=== PATIENT | female | born 1940 | race Caucasian/White ===

== ENCOUNTER 2019-01-14 15:41 | Outpatient (REF) | payer MEDICARE, OTHER, SELFPAY ==
[2019-01-14 21:33] LABS: FREE T4 0.62 ng/dL (0.76-1.46); TSH 5.77 uIU/mL (0.36-3.74)
[2019-01-16 16:20] LABS: T3,Free 2.5 pg/ml (2.8-5.3)
[2019-01-17 11:02] LABS: Alpha 1 Antitrypsin,Serum 142 mg/dL (90-200)
== END 2019-01-14 16:01 ==
LOC: NCHCN 15:41
PROVIDERS: PCP Nurse Practitioner Family; Visit Provider Nurse Practitioner Family
DX: E03.9 Hypothyroidism, unspecified (principal); F32.9 Major depressive disorder, single episode, unspecified; F41.9 Anxiety disorder, unspecified; J44.9 Chronic obstructive pulmonary disease, unspecified; I10 Essential (primary) hypertension; M54.2 Cervicalgia
CPT/HCPCS: 82103; 84439; 84443; 84481

== ENCOUNTER 2019-02-14 12:00 | Emergency (ER) | payer MEDICARE, OTHER, BC, SELFPAY ==
[2019-02-14] VITALS (33 sets, daily range): BP systolic 114–188; BP diastolic 63–85; PULSE 68–87; RESP 13–32; TEMP 36.1–36.6; O2SAT 95–100
--- NOTE | 2019-02-14 12:19 | ED.GENADUL_ITS ---
Discharge Plan Disposition Patient Disposition: HOME Condition: Stable Discharge Details Chief Complaint: Chest Pain Clinical Impression: Lightheadedness, Chest discomfort Primary Care Provider: Doretha Resendiz ED Provider: Mindy Santoro Home Meds and New Rx's Prescriptions: Continued ramipril 10 mg Capsule 10 mg PO DAILY RF: 0 cetirizine [Zyrtec] 10 mg Tablet 10 mg PO DAILY PRNRF: 0 levothyroxine [Synthroid] 25 mcg Tablet 25 mcg PO DAILY RF: 0 albuterol sulfate [ProAir HFA] 90 mcg/actuation Hfa Aerosol Inhaler 2 puff INHALATION Q6H PRNRF: 0 coenzyme Q10 [CoQ-10] 30 mg Capsule 30 mg PO DAILY RF: 0 diazepam 5 mg Tablet 5 mg PO DAILY PRN (Reason: Anxiety) RF: 0 nabumetone 500 mg Tablet 500 mg PO BID PRNRF: 0 Incruse Ellipta 62.5 mcg/actuation Blister With Device 1 inh INHALATION DAILY RF: 0 Discharge Instructions Instructions: Chest Pain (ED), Lightheadedness (ED) Additional Instructions: Please return immediately to the emergency department if you develop any new or worsening symptoms or if you become otherwise concerned. It is extremely important that you have an outpatient stress test performed as we discussed, and also that you call as soon as possible to make an appointment to be seen by your primary care doctor in follow-up. Referrals: Doretha Resendiz [Primary Care Provider] - Discharge Data Discharge Date/Time-TO BE ENTERED AT DEPARTURE: 02/14/19 16:50 Medical Decision Making Nayely Burt is a 78-year-old woman without reported history of medical problems presenting to the emergency department with episode of lightheadedness while standing, nausea, general malaise also with high blood pressure at home that is unusual for her. No current pain. On exam patient is elderly but acutely nontoxic appearing. Benign cardiopulmonary exam, no lower extremity, no posterior calf tenderness to palpation. Concern for ACS versus pulmonary embolism versus arrhythmia versus metabolic/lyte derangement versus pneumonia versus other. Exam/history is not consistent with acute aortic pathology, sepsis at this time. Plan for EKG, screening labs, IV, telemetry, chest x-ray, 324 mg aspirin. Will monitor and reassess. 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 She has been tearful over this multiple times in the emergency department. She denies any chest pain or lightheadedness on reassessment. Labs nondiagnostic, d-dimer elevated, plan for CT chest. CT chest negative. Patient continues to be asymptomatic on reassessment. Repeat EKG unchanged. Patient is low risk for ACS by heart score. Plan for outpatient stress test which I have ordered, Holter monitor. I have spoken with care management, and they are at bedside with patient discussing options to assist her with caring for her . I had a lengthy discussion with the patient regarding return to emergency department precautions, importance of outpatient follow-up and outpatient stress test, and home care. Patient verbalized understanding of the plan was amenable. All questions were answered. Patient was discharged home with clear plan for outpatient follow-up. Medical Records Medical records reviewed: Yes I reviewed the patient's medical records. Imaging Data Radiologic Study: Attestation: I personally reviewed and interpreted this imaging study as follows: Radiologist's impression: EXAM: CT CHEST PE CTA CLINICAL HISTORY: near syncope, chest pain TECHNIQUE: 70 cc of Omnipaque [address] angiography was performed with multi-slice acquisition and multi-planar and/or 3D reconstructions. COMPARISON: XR CHEST 2V PA LATERAL from 02/14/2019 FINDINGS: The aorta and pulmonary arteries are well opacified with IV contrast. No pulmonary artery filling defects are seen. There is no evidence of aortic dissection. There is no aortic aneurysm. No pleural or pericardial effusions are seen. Lungs are not well evaluated due to respiratory motion and expiratory changes. An area of scarring is seen in the posterior right upper lobe. No focal area of consolidation is seen. There are no underlying emphysematous changes. Degenerative changes are seen in the spine. No compression fracture is seen. IMPRESSION: No evidence of pulmonary emboli or other acute abnormality. EXAM: XR CHEST 2V PA AND LATERAL INDICATION: cough, lightheadedness. COMPARISON: No exams were available for comparison TECHNIQUE: 2D digital imaging was performed. FINDINGS: Heart size is normal. The aorta is tortuous. Lungs are expiratory on the lateral view. No infiltrate, effusion or pulmonary edema is seen on the PA view. IMPRESSION: Somewhat limited exam. No acute abnormality. Lab Data Lab results reviewed: Yes I reviewed the patient's lab results. ECG Data Attestation: I personally reviewed and interpreted this ECG (s) as follows: Interpretation: EKG shows sinus rhythm at 84, normal axis, poor R wave progression, subtle ST depression V3 V4 V5, no priors for comparison, nondiagnostic EKG Repeat EKG shows sinus rhythm at 70, normal axis, no change from prior, nondiagnostic EKG HPI General Mode of arrival: ambulatory . Date/Time Provider Initiated Documentation: 02/14/19 12:17 . Limitations to Documentation: no limitations . Information obtained by: patient, family, RN notes reviewed and old records reviewed . HPI Narrative: Nayely Burt is a 78-year-old woman without reported history of major medical problems presenting to the emergency department with lightheadedness, malaise. Patient reports that she was having her usual morning when she was walking and bent over, and had sudden onset sensation of lightheadedness as if she would pass out. Patient was outside at the time and was able to walk back to her house. Patient reports that since the episode she has felt general malaise. At the time of feeling lightheaded she also noticed some chest tightness in her right chest. Patient denies any current pain. Patient reports that she has had a cough over the past few days. She denies fevers, shortness of breath, vomiting, diarrhea, numbness, vision changes, vertigo. Patient reports that she feels generally weak. Patient reports that she has been eating and drinking as usual for her. 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 No recent travel. Related Data Home Medications Medication Instructions Recorded Confirmed Incruse Ellipta 1 inh INHALATION DAILY 02/14/19 02/14/19 albuterol sulfate [ProAir HFA] 2 puff INHALATION Q6H PRN 02/14/19 02/14/19 cetirizine [Zyrtec] 10 mg PO DAILY PRN 02/14/19 02/14/19 coenzyme Q10 [CoQ-10] 30 mg PO DAILY 02/14/19 diazepam 5 mg PO DAILY PRN 02/14/19 02/14/19 levothyroxine [Synthroid] 25 mcg PO DAILY 02/14/19 02/14/19 nabumetone 500 mg PO BID PRN 02/14/19 02/14/19 ramipril 10 mg PO DAILY 02/14/19 02/14/19 Allergies Allergy/AdvReac Type Severity Reaction Status Date / Time No Known Allergies Allergy Unverified 02/14/19 13:02 General Stated Complaint: Chest Pain VITOR: 2 Review of Systems Narrative: Constitutional: denies fevers Eyes: denies eye pain ENT: denies facial pain, dental pain, sore throat Cardiovascular: denies chest pain, edema, reports chest tightness now resolved, lightheadedness Respiratory: denies SOB, cough GI: denies abdominal pain, vomiting, diarrhea : denies flank pain MSK: denies back pain, neck pain, arthralgias, myalgias Skin: denies rash Neuro: denies headaches, numbness, weakness [facility] Medical History Hypertension (Chronic) Hypothyroid (Chronic) Inguinal hernia (Acute) hx of 3 hernia repairs @ [facility] Surgical History (Updated 02/14/19 @ 13:05 by Mindy Live) H/O detached retina repair (Acute) @ [facility] H/O: hysterectomy (Chronic) History of cholecystectomy (Chronic) Hx of appendectomy (Chronic) Social History Smoking/Tobacco Use Status: Never Drug use: Never Substance use type: does not use Do you feel safe at home: Yes Do you feel safe in your relationship?: Yes Exam Narrative Exam Narrative: Constitutional: elderly, acutely [id number], pleasant, conversing normally HENT: head atraumatic/normocephalic/normal inspection, mucous membranes moist Eyes: conjunctiva normal, sclera normal, pupils 3mm b/l Neck: no stridor, normal ROM, trachea midline Chest: normal inspection Resp: normal work of breathing, LCTAB Cardio: normal rate, normal rhythm, no murmur appreciated GI: abdomen soft, non-tender, non-distended Back: normal inspection, no rash Skin: warm, dry, normal color, no rash Neuro: alert, not altered, grossly non-focal, normal tone Ext: no edema, no posterior calf TTP Psych: normal mood, normal affect, normal behavior Course Vital Signs Vital signs: Vital Signs Temperature 36.6 C 02/14/19 12:08 Pulse 78 02/14/19 12:08 Respiratory Rate 15 02/14/19 12:08 Blood Pressure 166/79 H 02/14/19 12:08 Pulse Oximetry 99 02/14/19 12:08 Temperature 36.6 C 02/14/19 12:08 Temperature Source Skin 02/14/19 12:08 Pulse 78 02/14/19 12:08 Respiratory Rate 15 02/14/19 12:08 Blood Pressure 166/79 H 02/14/19 12:08 Blood Pressure Position Supine 02/14/19 12:08 Pulse Oximetry 99 02/14/19 12:08 Oxygen Delivery Method Room Air 02/14/19 12:08 Oxygen Flow Rate 0 02/14/19 12:08 Pain Level 0 02/14/19 12:08
[2019-02-14 12:39] LABS: Absolute Basophil Count 0.05 k/cumm (0.0-0.2); Absolute Eosinophil Count 0.18 k/cumm (0.0-0.7); Absolute Lymphocyte Count 1.25 k/cumm (1.2-3.4); Absolute Monocyte Count 0.41 k/cumm (0.11-0.7); Absolute Neutrophil Count 3.47 k/cumm (1.2-6.7); Basophils % 0.9; Eosinophils % 3.4; HGB 16.2 g/dL (12.0-15.5); Lymphocytes % 23.3; Mean Corp. HGB Concentration 34.5 g/dL (32.0-36.0); Mean Corpuscular Hemoglobin 28.7 pg (27.0-33.0); Mean Corpuscular Volume 83.2 fL (80-95); Mean Platelet Volume 9.1 fL (8.0-11.0); Monocytes % 7.6; Neutrophils % 64.8; Platelet Count 264 x1000/uL (130-400); RBC 5.65 m/cumm (4.00-5.20); RBC Distribution Width 13.4 % (11.7-14.6); White Blood Cell Count 5.36 k/cumm (4.4-10.8)
[2019-02-14] MEDS: Aspirin 81 MG CHEW 324 MG CH (12:55)
[2019-02-14 12:58] LABS: ALT 20 U/L (14-59); AST 18 U/L (15-37); Albumin 4.2 g/dL (3.4-5.0); Alkaline Phosphatase 75 U/L (46-116); Anion Gap 11.2 mmol/L (3-11); BUN 15 mg/dL (7-18); Bilirubin, Total 0.6 mg/dL (0.2-1.0); CO2 27.8 mmol/L (21.0-32.0); CREATININE 0.87 mg/dL (0.55-1.02); Calcium 9.3 mg/dL (8.5-10.1); Chloride 104 mmol/L (98-107); Glucose 101 mg/dL (74-106); NT-proBNP 37 pg/mL (<300); Potassium 3.7 mmol/L (3.5-5.1); Sodium 143 mmol/L (136-145); Total Protein 7.8 g/dL (6.4-8.2)
[2019-02-14 13:07] LABS: Troponin I < 0.05 ng/Ml (<0.06)
[2019-02-14 13:29] LABS: D-Dimer 1233 ng/mlFEU (<500)
[2019-02-14] MEDS: diazePAM 2 MG TAB PO (13:30)
[2019-02-14 13:34] LABS: Bilirubin Negative (Negative); Blood Negative (Negative); Clarity Clear (Clear); Glucose Negative (Negative); Ketones Negative (Negative); Leukocyte Esterase Trace (Negative); Nitrite Negative (Negative); Urobilinogen 0.2 EU/dL (Up TO 0.2)
--- NOTE | 2019-02-14 13:44 | DI.CT_ITS ---
EXAM: CT CHEST PE CTA CLINICAL HISTORY: near syncope, chest pain TECHNIQUE: 70 cc of Omnipaque [address] angiography was performed with multi-slice acquisiti on and multi-planar and/or 3D reconstructions. COMPARISON: XR CHEST 2V PA LATERAL from 02/14/2019 FINDINGS: The aorta and pulmonary arteries are well opacified with IV contrast. No pulmonary artery filling def ects are seen. There is no evidence of aortic dissection. There is no aortic aneurysm. No pleural or pericardial effusions are seen. Lungs are not well evaluated due to respiratory motion and expiratory changes. An area of scarring is seen in the posterior right upper lobe. No focal area of consolidati on is seen. There are no underlying emphysematous changes. Degenerative changes are seen in the spine . No compression fracture is seen. IMPRESSION: No evidence of pulmonary emboli or other acute abnormality.
[2019-02-14 13:55] LABS: TSH (W/Ref FT4) 6.68 uIU/mL (0.36-3.74)
[2019-02-14 13:59] LABS: Bacteria Rare HPF (Negative); Casts Negative LPF (Negative); Crystals Negative HPF (Negative); Epithelial Cells Rare HPF (Negative); Mucus Negative (Negative); RBC 0-2 HPF (0-2)
[2019-02-14 14:00] LABS: C & S Indicated? Yes
[2019-02-14 14:21] LABS: FREE T4 0.88 ng/dL (0.76-1.46)
[2019-02-14] MEDS: Omnipaque 350 MG/ML 100 ML BTL IJ (14:40)
[2019-02-14] MEDS: Normal Saline 1,000 ML 1000 ML IV (15:01)
[2019-02-14] MEDS: Acetaminophen 325 MG TAB 650 MG PO (15:30)
[2019-02-14 16:36] LABS: Troponin I < 0.05 ng/Ml (<0.06)
== END 2019-02-14 16:50 | disposition home or self-care (01) ==
PROVIDERS: Emergency Provider Student in an Organized Health Care Education/Training Program; PCP Nurse Practitioner Family
DX: R42 Dizziness and giddiness (principal); R07.9 Chest pain, unspecified; I10 Essential (primary) hypertension
CPT/HCPCS: 36415; 71275; 80053; 93005; 96360; 99285; 71046; 81003; 81015; 83735; 83880; 84439; 84443; 84484; 85025; 85379; 87086; 93010; 93225; J3490

== ENCOUNTER 2019-02-17 08:06 | Outpatient (CLI) | payer MEDICARE, OTHER, BC, SELFPAY ==
--- NOTE | 2019-02-21 09:26 | W.HOLTRPT ---
Date of service: 02/21/19 Time of Service: 09:26 Holter Monitor Report Holter Monitor Note: There is a 2-day Holter monitor ordered for the indication of presyncope. ?The patient was in normal sinus rhythm for the majority of the recording time. ?The patient had 2 episodes of supraventricular tachycardia with the longest lasting 4 beats. ?Patient had rare (less than 1%) premature atrial contractions. ?Patient had one episode of ventricular tachycardia which lasted 5 beats. ?The patient had rare (less than 1%) single ventricular ectopic beats. ?The patient had no episodes of atrial fibrillation, no evidence of high degree heart block and no pauses greater than 3 seconds. ?There were no diary events.
== END 2019-02-17 08:26 ==
PROVIDERS: PCP Nurse Practitioner Family; Visit Provider Nurse Practitioner Family
DX: R55 Syncope and collapse (principal); I47.1 Supraventricular tachycardia; I49.1 Atrial premature depolarization; I47.2 Ventricular tachycardia
CPT/HCPCS: 93226

== ENCOUNTER 2019-02-21 00:35 | Outpatient (CLI) | payer MEDICARE, OTHER, BC, SELFPAY ==
--- NOTE | 2019-02-21 10:04 | ETT_ITS ---
APPROVED REPORT Exam: Exercise Treadmill Patient Location: Out-Patient Room/Bed: Stress Nurse: Malia Freeman RN BMI: 28.69 Baseline Rhythm: Sinus Rhythm Indications: Patient presented to the ER on 02/14/19 with a brief (lasted seconds) period of sharp sternal chest pain associated with nausea and a blood pressure (systolic blood pressure over 200 mm/H g per patient) that shot way up. 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 Medical History Medical History: HTN Cardiac Medications: Ramipril Allergies: No known drug allergies Previous Cardiac Procedures: None Pretest Chest Pain Characteristics: None Exercise History: Physically active Lung Sounds: Clear to auscultation Heart Sounds: Regular Stress Test Details Test: Exercise stress testing was performed using a Otilio protocol. Rest Stress HR Max Heart Rate (APMHR): 142 bpm Resting HR Supine: 76 bpm Target HR (85% APMHR): 120 bpm Resting HR Standin bpm Max HR Achieved: 128 bpm % of APMHR: 90 HR response to stress: Normal HR response to stress BP Resting BP Supine: 138/80 mmHg Resting BP Standin/74 mmHg Max BP: 164/72 mmHg BP response to stress: Normal blood pressure response to stress. ECG Resting ECG: Sinus Rhythm ST Change: none Stress ECG: Sinus Tachycardia ST Change: none Recovery ECG: Sinus Rhythm Recovery ST Change: none Clinical Exercise duration: 5 min13 sec Highest Stage Achieved: Stage 2: 2.5 mph at 12% grade. Exercise capacity: 7.05 METs Functional Capacity: Average Capacity Stress ECG Conclusion 1. Patient exercised for 5 minutes (7 METS) which is average for her age range. 2. Patient did not develop any symptoms of angina associated with exercise. 3. The patient achieved a heart rate of 90% of predicted value represents a maximal exertion stress t est. 4. There is no ECG evidence of ischemia on stress. 5. The Flood Score (5) estimates an annual cardiovascular mortality of 1% and a five year survival of 94%. Using the Flood Score there is a low probability of any angiographic coronary disease. Protocol Used: Otilio Protocol Stress Test Summary STAGE Time (mins) Speed (mph) Grade (%) HR BP SYMPTOMS METS Supine 76 138/80 Standing 77 136/74 1 3 1.7 10 109 142/70 4.6 2 6 2.5 12 128 146/72 7 3 9 3.4 14 10.2 4 12 4.2 16 12.9 5 15 5.0 18 17.2 1 min recovery 112 164/72 3 min recovery 88 148/76 6 min recovery 81 132/80
== END 2019-02-21 00:55 ==
PROVIDERS: PCP Nurse Practitioner Family; Visit Provider Student in an Organized Health Care Education/Training Program
DX: R07.9 Chest pain, unspecified (principal); R11.0 Nausea; I10 Essential (primary) hypertension; I47.1 Supraventricular tachycardia; I49.1 Atrial premature depolarization; I47.2 Ventricular tachycardia
CPT/HCPCS: 93016; 93018; 93227; 93017

== ENCOUNTER 2019-03-29 13:08 | Outpatient (REF) | payer MEDICARE, OTHER, BC, SELFPAY ==
[2019-03-29 21:59] LABS: TSH (W/Ref FT4) 5.83 uIU/mL (0.36-3.74)
[2019-03-29 22:17] LABS: FREE T4 0.79 ng/dL (0.76-1.46)
== END 2019-03-29 13:28 ==
LOC: NCHCN 13:08
PROVIDERS: PCP Nurse Practitioner Family; Visit Provider Nurse Practitioner Family
DX: E03.9 Hypothyroidism, unspecified (principal)
CPT/HCPCS: 84439; 84443

== ENCOUNTER 2019-05-12 12:05 | Outpatient (REF) | payer MEDICARE, OTHER, BC, SELFPAY ==
[2019-05-12 21:34] LABS: TSH (W/Ref FT4) 4.11 uIU/mL (0.36-3.74)
[2019-05-12 22:11] LABS: FREE T4 0.96 ng/dL (0.76-1.46)
== END 2019-05-12 12:25 ==
LOC: NCHCN 12:05
PROVIDERS: PCP Nurse Practitioner Family; Visit Provider Nurse Practitioner Family
DX: E03.9 Hypothyroidism, unspecified (principal)
CPT/HCPCS: 84439; 84443

== ENCOUNTER 2019-05-26 13:54 | Outpatient (REF) | payer MEDICARE, OTHER, BC, SELFPAY ==
[2019-05-26 21:20] LABS: Anion Gap 6.8 mmol/L (3-11); BUN 14 mg/dL (7-18); CO2 31.2 mmol/L (21.0-32.0); CREATININE 0.88 mg/dL (0.55-1.02); Calcium 8.8 mg/dL (8.5-10.1); Chloride 104 mmol/L (98-107); Glucose 84 mg/dL (74-106); Potassium 4.5 mmol/L (3.5-5.1); Sodium 142 mmol/L (136-145); TSH (W/Ref FT4) 4.51 uIU/mL (0.36-3.74)
[2019-05-26 21:37] LABS: FREE T4 1.05 ng/dL (0.76-1.46)
== END 2019-05-26 14:14 ==
LOC: NCHCN 13:54
PROVIDERS: PCP Nurse Practitioner Family; Visit Provider Nurse Practitioner Family
DX: E03.9 Hypothyroidism, unspecified (principal); F32.9 Major depressive disorder, single episode, unspecified; F41.9 Anxiety disorder, unspecified; E78.5 Hyperlipidemia, unspecified; I10 Essential (primary) hypertension; M54.2 Cervicalgia; J44.9 Chronic obstructive pulmonary disease, unspecified; J30.9 Allergic rhinitis, unspecified
CPT/HCPCS: 80048; 84439; 84443

== ENCOUNTER 2019-08-30 12:34 | Outpatient (REF) | payer MEDICARE, OTHER, BC, SELFPAY ==
[2019-08-30 21:26] LABS: Abs Immature Grans 0.01 k/cumm (0.0-0.09); Absolute Basophil Count 0.05 k/cumm (0.0-0.2); Absolute Eosinophil Count 0.16 k/cumm (0.0-0.7); Absolute Lymphocyte Count 1.39 k/cumm (1.2-3.4); Absolute Monocyte Count 0.44 k/cumm (0.11-0.7); Absolute Neutrophil Count 3.65 k/cumm (1.2-6.7); Basophils % 0.9; Eosinophils % 2.8; HCT 46.8 % (36.0-46.0); HGB 15.7 g/dL (12.0-15.5); Immature Grans % 0.2 %; Lymphocytes % 24.4; Mean Corp. HGB Concentration 33.5 g/dL (32.0-36.0); Mean Corpuscular Hemoglobin 28.7 pg (27.0-33.0); Mean Corpuscular Volume 85.6 fL (80-95); Mean Platelet Volume 10.5 fL (8.0-11.0); Monocytes % 7.7; Platelet Count 236 x1000/uL (130-400); RBC 5.47 m/cumm (4.00-5.20); RBC Distribution Width 13.5 % (11.7-14.6)
[2019-08-30 22:40] LABS: ALT 24 U/L (14-59); AST 21 U/L (15-37); Albumin 4.2 g/dL (3.4-5.0); Alkaline Phosphatase 79 U/L (46-116); Anion Gap 10.7 mmol/L (3-11); BUN 15 mg/dL (7-18); Bilirubin, Total 0.5 mg/dL (0.2-1.0); CO2 28.3 mmol/L (21.0-32.0); CREATININE 0.76 mg/dL (0.55-1.02); Chloride 105 mmol/L (98-107); FREE T4 0.97 ng/dL (0.76-1.46); Glucose 82 mg/dL (74-106); Potassium 4.7 mmol/L (3.5-5.1); Sodium 144 mmol/L (136-145); TSH 7.56 uIU/mL (0.36-3.74); Total Protein 7.4 g/dL (6.4-8.2)
[2019-08-31 17:40] LABS: T3,Free 3.1 pg/mL (2.8-5.3)
== END 2019-08-30 12:54 ==
LOC: NCHCN 12:34
PROVIDERS: PCP Nurse Practitioner Family; Visit Provider Nurse Practitioner Family
DX: E03.9 Hypothyroidism, unspecified (principal); I10 Essential (primary) hypertension; E78.5 Hyperlipidemia, unspecified; R10.9 Unspecified abdominal pain; F32.9 Major depressive disorder, single episode, unspecified; J44.9 Chronic obstructive pulmonary disease, unspecified
CPT/HCPCS: 80053; 84439; 84443; 84481; 85025

== ENCOUNTER 2019-12-07 12:09 | Outpatient (REF) | payer MEDICARE, OTHER, BC, SELFPAY ==
[2019-12-07 21:53] LABS: Abs Immature Grans 0.01 10^3/uL (0.0-0.06); Absolute Basophil Count 0.07 10^3/uL (0.0-0.2); Absolute Eosinophil Count 0.15 10^3/uL (0.0-0.7); Absolute Lymphocyte Count 1.36 10^3/uL (1.2-3.4); Absolute Monocyte Count 0.39 10^3/uL (0.1-0.8); Absolute Neutrophil Count 3.71 10^3/uL (1.2-6.7); Basophils % 1.2; Eosinophils % 2.6; HCT 49.2 % (36.0-46.0); HGB 16.1 g/dL (11.2-15.7); Immature Grans % 0.2; Lymphocytes % 23.9; MCH 28.6 pg (27.0-33.0); MCHC 32.7 % (32.0-36.0); MCV 87.4 fL (80-95); Monocytes % 6.9; Neutrophils % 65.2; Nucleated RBC 0 %; RBC 5.63 10^6/uL (3.93-5.22); RDW-SD 41.1 fL; WBC 5.69 10^3/uL (4.4-10.8)
[2019-12-07 22:19] LABS: ALT 25 U/L (14-59); AST 22 U/L (15-37); Albumin 4.2 g/dL (3.4-5.0); Alkaline Phosphatase 85 U/L (46-116); Anion Gap 7.8 mmol/L (3-11); BUN 13 mg/dL (7-18); Bilirubin, Total 0.4 mg/dL (0.2-1.0); CO2 29.2 mmol/L (21.0-32.0); CREATININE 0.89 mg/dL (0.55-1.02); Calcium 9.3 mg/dL (8.5-10.1); Chloride 104 mmol/L (98-107); Glucose 88 mg/dL (74-106); Lipase 93 U/L (73-393); Sodium 141 mmol/L (136-145); TSH (W/Ref FT4) 2.89 uIU/mL (0.36-3.74); Total Protein 7.4 g/dL (6.4-8.2)
[2019-12-07 22:26] LABS: Diff Comment Agrees w/ Instrument; RBC Morphology Normal
[2019-12-08 17:53] LABS: CRP, High Sensitivity 2.69 mg/L (See Note)
== END 2019-12-07 12:29 ==
LOC: NCHCN 12:09
PROVIDERS: PCP Nurse Practitioner Family
DX: E03.9 Hypothyroidism, unspecified (principal); R10.9 Unspecified abdominal pain; I10 Essential (primary) hypertension
CPT/HCPCS: 80053; 83690; 86141; 84443; 85025

== ENCOUNTER 2019-12-08 01:15 | Outpatient (CLI) | payer MEDICARE, OTHER, BC, SELFPAY ==
--- NOTE | 2019-12-08 | DI.CT_ITS ---
EXAM: CT ABDOMEN PELVIS W CLINICAL HISTORY: ABD PAIN,R10.9,? PARTIAL SBO,DIVERTICULITIS TECHNIQUE: COMPARISON: CT CT CHEST PE CTA from 02/14/2019 FINDINGS: CT examination of the abdomen and pelvis was performed bolus infusion of 100 cc of Omnipaque 350 and ingestion of dilute barium. Images obtained through the lung bases are unremarkable except for areas of apparent atelectasis and/or scarring. Liver and spleen are normal in appearance as is the pancreas. Note is made of a prior cholecystectom y. No biliary dilatation seen. Adrenals and kidneys are unremarkable, no renal mass, hydronephrosis, or nephrolithiasis. Abdominal aorta is of normal diameter and major visceral branches appear intact. No abdominal or pel nichole adenopathy seen. There is a small ventral hernia at and above the level of the umbilicus which is widely patent and wh ich contains normal-appearing small bowel loops, no evidence obstruction or inflammation. No other s ignificant abdominal wall hernia seen. Small bowel is unremarkable in appearance. Appendix is not specifically visualized but there is no e vidence of appendicitis or diverticulitis. There is a focal area of irregularity of the wall of the descending colon with question associated mu cosal irregularity, colonoscopy requested to exclude neoplastic disease. An additional small focal a sana of wall thickening and luminal narrowing is also noted in the distal descending colon, again colo noscopist evaluation recommended. There are anastomotic sutures at the rectum and in the sigmoid with associated post anastomotic sigmo id deformity. No evidence of obstruction. No evidence of acute inflammatory process. IMPRESSION: Uncomplicated widely patent ventral hernia containing normal appearing bowel loops. Prior cholecystectomy, prior colon surgery, with sigmoid wall deformity presumably postsurgical.. Two focal areas of abnormal wall thickening and associated question mucosal abnormality of the descen ding colon are noted, colonoscopic correlation requested to exclude neoplasm. RADIATION DOSE DELIVERED: 686.85mGy.cm Total DLP
[2019-12-08] MEDS: Omnipaque 350 MG/ML 50 ML BTL PO ×2 (07:00→07:54)
[2019-12-08] MEDS: Omnipaque 350 MG/ML 100 ML BTL IJ (07:56)
== END 2019-12-08 01:35 ==
PROVIDERS: PCP Nurse Practitioner Family
DX: K43.9 Ventral hernia without obstruction or gangrene; K63.89 Other specified diseases of intestine; R10.9 Unspecified abdominal pain
CPT/HCPCS: 74177; J3490; Q9967

== ENCOUNTER → 2019-12-14 10:48 | Outpatient (BNVA) | payer MEDICARE, OTHER, BC, SELFPAY | PROVIDERS: PCP Nurse Practitioner Family; Referring Provider Nurse Practitioner Family; Visit Provider Surgery | DX: R10.13 Epigastric pain (principal); K43.9 Ventral hernia without obstruction or gangrene; Z98.890 Other specified postprocedural states; Z90.49 Acquired absence of other specified parts of digestive tract; R93.5 Abnormal findings on diagnostic imaging of other abdominal regions, including retroperitoneum; J44.9 Chronic obstructive pulmonary disease, unspecified; I10 Essential (primary) hypertension | CPT/HCPCS: 99203; 99214 ==

== ENCOUNTER 2019-12-16 07:23 | Outpatient (CLI) | payer MEDICARE, OTHER, BC, SELFPAY ==
[2019-12-17 23:51] LABS: COVID-19 RT-PCR Result NEGATIVE (Negative)
== END 2019-12-16 07:43 ==
PROVIDERS: PCP Nurse Practitioner Family; Visit Provider Surgery
DX: Z11.59 Encounter for screening for other viral diseases (principal); Z01.818 Encounter for other preprocedural examination
CPT/HCPCS: U0003

== ENCOUNTER 2019-12-19 07:45 | Day surgery (SDC) | payer MEDICARE, OTHER, BC, SELFPAY ==
[2019-12-19 08:00] VITALS: BP 110/67; PULSE 90; RESP 18; TEMP 36.6; O2SAT 95
[2019-12-19] MEDS: Lactated Ringers 1,000 ML 80 ML IV (08:28)
--- NOTE | 2019-12-19 10:22 | W.COLOREPORT ---
Date of service: 12/19/19 Time of Service: 10:22 Colonoscopy Report Date of procedure: 12/19/19 Pre-op diagnosis general: hx of diveritc/abnl CT Post-op diagnosis procedure note: same Surgeon: Evonne Ruano Anesthesia proc note operative: GETA Estimated blood loss (mL): 0 Pathology: none sent Complications: None Disposition: same day Prep: Miralax/Dulcolax Retraction Time: 10 mins Procedure Description: After informed consent was obtained the patient was taken to the procedure room and placed in a left decubitous position. Monitors were applied and a time out was done. The patients name, date of , procedure, allergies to medications and metal in their body was reviewed. The patient was then sedated. Once sedated and comfortable a rectal exam was done. External exam shows hemorhoidal tags. Internal exam revealed a normal sphincter tone and no palpable masses. The scope was then introduced and retrofelexed. Grade I internal hemorrhoids were identified. The scope was then advanced to the cecum w/out difficulty. The TI and appendiceal orifice were identified. The prep was good. The scope was then slowly retracted over 10 minutes back into the rectum. Polyps were removed-none. The anastomosis is widely patent. There are a few small diverticula still present in the left colon. THere are no signs of malignancy or polyps in the right colon. The scope was removed and the patient was woken up and taken back to Same day surgery in stable condition. The patient tolerated the procedure well and there were no immediate complications. Follow up: The patient does not require any further CE's, unless they develop changes in bowel habits or other new gastrointestinal complaints.
--- NOTE | 2019-12-19 10:25 | W.PM.DSUDISC ---
Discharge Plan Disposition Patient Disposition: HOME Condition: Good Discharge Details Reason For Visit: colon scope Attending Provider: Evonne Ruano Primary Care Provider: Doretha Resendiz Home Meds and New Rx's Prescriptions: Discontinued polyethylene glycol 3350 17 gram/dose powder 238 g PO ONCE Qty: 238 RF: 0 bisacodyl [Dulcolax (bisacodyl)] 5 mg tablet,delayed release (DR/EC) 5 mg PO ONCE Qty: 4 RF: 0 No Action acetaminophen [Tylenol Arthritis Pain] 650 mg tablet extended release 650 mg PO Q12H RF: 0 levothyroxine 75 mcg tablet 75 mcg PO DAILY RF: 0 ramipril 5 mg capsule 5 mg PO DAILY RF: 0 cetirizine [Zyrtec] 10 mg Tablet 10 mg PO DAILY PRNRF: 0 albuterol sulfate [ProAir HFA] 90 mcg/actuation Hfa Aerosol Inhaler 2 puff INHALATION Q6H PRNRF: 0 coenzyme Q10 [CoQ-10] 30 mg Capsule 30 mg PO DAILY RF: 0 diazepam 5 mg Tablet 5 mg PO DAILY PRN (Reason: Anxiety) RF: 0 nabumetone 500 mg Tablet 500 mg PO BID PRNRF: 0 Incruse Ellipta 62.5 mcg/actuation Blister With Device 1 inh INHALATION DAILY RF: 0 Discharge Instructions Additional Instructions: Findings: few residual diverticula. Otherwise nl colon Follow up: 2-4 wks to d/w hernia repair Please call if you develop: fevers >101.5 Nausea or Vomiting Abdominal pain that is not transient DAY SURGERY UNIT POST COLONOSCOPY INSTRUCTIONS 1. Because there will be medication in your system for the next 24 hours, you may feel a little sleepy. Your coordination will be affected. Therefore: a. Do not drive or operate dangerous equipment for 24 hours. b. Do not drink alcohol beverages for 24 hours (not even beer). c. Plan to go home and rest for the day. 2. Generally there are no restrictions on your activity after a day or so has gone by, but you may feel a bit fatigued for a few days. 3 After you arrive home you may have a light meal and return to a normal diet as you can tolerate it without feeling sick to your stomach. 4. After surgery, you may feel pain or discomfort. This should be only transient, but if it persists please contact your doctor. 5. If there are any questions regarding the findings of your procedure, please feel free to contact your doctor. 6. If you are unable to contact your doctor with a problem, contact the hospital at [phone]. 7. Continue all your regular medications unless directed otherwise. I understand the above instructions and have no questions. Signature of Patient or Responsible Adult Escort Date/Time Name of Responsible Adult Escort Signature of Nurse Date/Time Activity:: no lifting over 20#'s or strenuous activity x 24 hrs Diet:: small light meals x 24 hrs Discharge Orders Discharge Orders: Discharge Order (Routine); Ordered 12/19/19 Ordered By: Evonne Ruano DS: Diagnosis Discharge Diagnosis (1) Ventral hernia: Status: Acute (2) Diverticular disease of large intestine: Status: Acute
== END 2019-12-19 11:10 | disposition home or self-care (01) ==
PROVIDERS: PCP Nurse Practitioner Family; Visit Provider Surgery
PROC: 0DJD8ZZ Inspection of Lower Intestinal Tract, Via Natural or Artificial Opening Endoscopic (ICD-10-PCS; CPT 45378; principal; 2019-12-19 09:00)
DX: R93.3 Abnormal findings on diagnostic imaging of other parts of digestive tract (principal); Z98.0 Intestinal bypass and anastomosis status; Z86.010 Personal history of colon polyps
CPT/HCPCS: 45378

== ENCOUNTER → 2020-01-04 09:44 | Outpatient (BNVA) | payer MEDICARE, OTHER, BC, SELFPAY | PROVIDERS: PCP Nurse Practitioner Family; Referring Provider Nurse Practitioner Family; Visit Provider Surgery | DX: K57.30 Diverticulosis of large intestine without perforation or abscess without bleeding (principal); Z98.890 Other specified postprocedural states; Z90.49 Acquired absence of other specified parts of digestive tract; K43.9 Ventral hernia without obstruction or gangrene; E03.9 Hypothyroidism, unspecified; I10 Essential (primary) hypertension; E78.5 Hyperlipidemia, unspecified; J44.9 Chronic obstructive pulmonary disease, unspecified | CPT/HCPCS: 99214 ==

== ENCOUNTER 2020-01-26 01:02 | Outpatient (CLI) | payer MEDICARE, OTHER, BC, SELFPAY ==
[2020-01-28 13:24] LABS: SARS-CoV-2 RNA Not Detected (NotDetected); SARS-CoV-2 RNA Source Nasal/Nares
== END 2020-01-26 01:22 ==
PROVIDERS: PCP Nurse Practitioner Family; Visit Provider Surgery
DX: Z01.818 Encounter for other preprocedural examination (principal); K43.9 Ventral hernia without obstruction or gangrene
CPT/HCPCS: 36415; 86850; 86900; 86901; U0003

== ENCOUNTER → 2020-01-27 10:12 | Outpatient (BNVA) | payer MEDICARE, OTHER, BC, SELFPAY | PROVIDERS: PCP Nurse Practitioner Family; Referring Provider Nurse Practitioner Family; Visit Provider Surgery | DX: K43.9 Ventral hernia without obstruction or gangrene (principal); Z01.818 Encounter for other preprocedural examination; J44.9 Chronic obstructive pulmonary disease, unspecified; I10 Essential (primary) hypertension | CPT/HCPCS: 99212 ==

== ENCOUNTER 2020-01-30 06:00 | Inpatient (IN) | payer MEDICARE, OTHER, BC, SELFPAY ==
[2020-01-30] VITALS (105 sets, daily range): BP systolic 90–126; BP diastolic 50–84; PULSE 74–99; RESP 11–34; TEMP 36–36.6; O2SAT 88–98
[2020-01-30] MEDS: Acetaminophen 500 MG TAB 1000 MG PO ×2 (06:56→22:37)
[2020-01-30] MEDS: Lactated Ringers 1,000 ML 80 ML IV ×3 (07:10→20:20)
[2020-01-30] MEDS: FentaNYL/ROPIvacaine 2 mcg/ml and 0.1% 200 ML CADD Cassette EP (08:20)
[2020-01-30] MEDS: ceFAZolin 2 GM/50 ML BAG IVPB (08:21)
[2020-01-30] MEDS: Bupivacaine 0.25% Pres-Free 30 ML VIAL (09:22)
--- NOTE | 2020-01-30 13:55 | W.PM.OP ---
Date of service: 01/30/20 Time of Service: 13:55 Operative Note Operative Note DATE OF PROCEDURE: 01/30/20 PRE-OP DIAGNOSIS: recurrent incional hernia PROCEDURE: retro-rectus hernia repair w/ permacol biologic mesh transversus abdominus muscle release SURGEON: Evonne Ruano [employer] SUPERVISOR: Rabia Krueger ANESTHESIA: GETA and epidural ESTIMATED BLOOD LOSS: 50 PATHOLOGY: none sent COMPLICATIONS: None Patient was transported to: PACU Patient's condition: stable Procedure Description: Mary Lou Ruffin 1940 is here today for recurrent ventral hernia repair. She has had the hernia repair in 2013. She had a mesh product placed that ultimately had to be removed, and subsequently she developed another hernia. She has had a preop CT scan which was reviewed and the proper size was ordered. She had a colonoscopy preop which was normal. She is seen in preop and marked today. We did review the procedure what she could expect during the procedure, hospital course and postop recovery time and restrictions. We discussed risks of surgery including not limited to: Bleeding, infection, pneumonia, blood clots, complications from anesthesia, reaction to mesh requiring removal, chronic pain,, chronic numbness, nonhealing, seromas and hematomas, complications of anesthesia, including ME and stroke. And as always recurrence of hernia. Epidural anesthesia is administered per the department of anesthesia. Patient is then brought to the operating room suite and placed in the supine position. General anesthesia is administered per anesthesia. NG tube and Gracia catheter placed. She did receive preoperative antibiotics. Timeout is performed. The abdomen is prepped and draped in the usual sterile fashion using a ChloraPrep scrub solution. 20 cc of .25% Marcaine is used for local anesthetization. The old scar is removed using a #10 blade. Vertical midline incision is created 3 inches above 3 inches below the umbilicus. Electrocautery is used to dissect down through the fascia and subcutaneous tissue. She has a significant amount of scarring in the subcutaneous tissue. The hernia sac is then encountered and opened. The hernia sac is excised. Skin flaps are raised over the fascia, using electrocautery. She had significant tissue reaction and has pretty severe adhesions from the subcutaneous tissue to the fascia. The hernia that is excised. Her omentum is adhered to the hernia sac and to the anterior abdominal wall and this is excised using LigaSure. Considering all the surgeries that she has had, her adhesions in the abdomen are not that severe. The bowel is removed from the anterior abdominal wall. About 30 minutes is spent lysing adhesions to the anterior abdominal wall and from the hernia sac. I did not attempt to lyse all the adhesions and run her small bowel. She is never had a small bowel obstruction. Next the posterior fascial sheath flaps are created. This is where we run into difficulty as she has had pretty significant tissue reaction from having the previous mesh in place; the rectus muscle and sheath components are intimately adhered/scarred together. This is especially true in the left lower quadrant where she had a previous colostomy. Below the arcuate line there is basically no fascia left. 2 hours is spent doing the dissection, just to define and identify and develop and separate the posterior sheath and rectus muscles. I am able to do this still have excellent coverage from the mesh except, for about a 3 x 2 cm area in the left lower quadrant as previously noted. Most of the posterior sheath is development is done using a combination of electro cautery and blunt dissection. There is an area on the left side near the umbilicus that this sheath is torn and this is repaired using a 2-0 PDS. The relaxing incisions are then created bilaterally from the ribs to the ASIS by opening up the transverses abdominis using electrocautery. This gives us generous amounts of posterior sheath and amenible to close the posterior sheath in the midline without any tension. This is closed in a running fashion with #1 PDS. There was no bleeding or signs of any enteric leakage from the abdominal cavity. No drains are placed in abdominal cavity. Sponge and needle count is correct prior to closing the peritoneum and posterior sheath. The posterior sheath and rectus muscle are irrigated. Attention is then turned to the mesh. We are using a 20 x 15 cm Permacol biologic mesh. This is tacked down at the 4 cardinal points using a 2-0 PDS. In the area where we have loss of domain, in the left lower quadrant, the mesh is tacked down to: Osiel's ligament and to the inguinal ligament and then up to the anterior sheath as well. There is no signs of any bleeding we have excellent coverage. We did not have to cut the mesh. The wound is irrigated. The anterior sheath is then closed over the mesh with a 2-0 PDS in a running fashion. The fat pads are copiously irrigated. There is no bleeding. x2 19 mm JOSHUA drains are brought out through separate stab incisions and b/l in the subcu. The subcu was closed with 3-0 Vicryl in a running pattern. The fat pad is irrigated. And the incision is closed with amparo. Sterile dressings are applied. Patient tolerated procedure without complication and transferred recovery room in stable condition. Her family was apprised of the findings.
--- NOTE | 2020-01-30 15:20 | W.PM.PROGNOT ---
Date of Service Date of service: 01/30/20 Time of Service: 15:20 Assessment and Plan Assessment and plan (1) History of open sigmoidectomy: Status: Acute (2) Ventral hernia: Status: Acute Assessment and plan: The patient is doing well post-op. There pain is well controlled. They are having no nausea or vomiting. The pt is not having any chest pain or SOB, productive cough; no calf pain or swelling. The pt is making good urine. The pt pain is adequately controlled. The case was discussed with nursing and pateints progress reviewed. All of the pt's home medications were addressed and adjusted accordingly for their oral intact status. HEENT: no janudice. no eye pain/drainage/redness/swelling. mild sore throat cardio- NSR no chest pain, BP stable. pulm: no sob or productive cough. no hemoptysis insicion- clean/dry. dressing intact no excessive bleeding or drainage I discussed with the patient [id number], [place] [phone], about the findings in surgery and the pt's progress. We reviewed expectations for progress in the hospital; what the pt could expect for recovery time and length of stay. We discussed the importance of walking and pulmonary toilet to avoid blood clots and pneumonia. Continue current plans for pulmonary toilet, GI and DVT prophalxis. We shall continue the current plan for pain mangament as it is at an appropraite level and working well for the pt. Appriopriate measures will be taken for constipation prevention as well, and this was also reviewed witht the pt. wound care plan was reviewed with nursing as well. see orders (3) Hypothyroid: Status: Chronic (4) Hypertension: Status: Chronic (5) Hyperlipidemia: Status: Acute (6) COPD (chronic obstructive pulmonary disease): Status: Chronic Objective Last Vital Signs Temp 36.5 C 01/30/20 15:00 Pulse 74 01/30/20 15:00 Resp 24 01/30/20 15:00 BP 109/84 01/30/20 15:00 Pulse Ox 97 01/30/20 15:00
[2020-01-30] MEDS: Heparin 5,000 UNITS/ML VIAL 5000 UNITS SC (20:19)
[2020-01-30] MEDS: Zolpidem 5 MG TAB PO (22:37)
[2020-01-30] MEDS: Docusate Sodium 100 MG CAP PO (22:38)
[2020-01-31] VITALS (26 sets, daily range): BP systolic 94–128; BP diastolic 53–71; PULSE 75–105; RESP 16–20; TEMP 36–38.3; O2SAT 89–97
--- NOTE | 2020-01-31 00:55 | NUR.NOTE ---
at approx 0013 01/31/2020 pt transferred from ICU room 222 to MS room 207. pt admitted to ICU as a MS overflow. pt transfered without incident via rolling bed. VSS. pts belongings transferred with pt. pt oriented to room, call fortune, TV, visitor and smoking policy. all pts questions answered to the best of my ability. CTM.
[2020-01-31] MEDS: FentaNYL/ROPIvacaine 2 mcg/ml and 0.1% 200 ML CADD Cassette EP (04:42)
[2020-01-31] MEDS: Levothyroxine 75 MCG TAB PO (06:40)
[2020-01-31] MEDS: Heparin 5,000 UNITS/ML VIAL 5000 UNITS SC ×2 (06:40→18:00)
[2020-01-31] MEDS: Acetaminophen 500 MG TAB 1000 MG PO ×3 (06:41→21:55)
[2020-01-31 07:25] LABS: Abs Immature Grans 0.04 10^3/uL (0.0-0.06); Absolute Basophil Count 0.02 10^3/uL (0.0-0.2); Absolute Lymphocyte Count 1.19 10^3/uL (1.2-3.4); Absolute Monocyte Count 0.97 10^3/uL (0.1-0.8); Absolute Neutrophil Count 7.53 10^3/uL (1.2-6.7); Basophils % 0.2; HCT 34.3 % (36.0-46.0); HGB 11.7 g/dL (11.2-15.7); Immature Grans % 0.4; Lymphocytes % 12.2; MCH 29.4 pg (27.0-33.0); MCHC 34.1 % (32.0-36.0); MCV 86.2 fL (80-95); MPV 9.5 fL (8.0-11.0); Monocytes % 9.9; Neutrophils % 77.3; Nucleated RBC 0 %; Platelet Count 183 10^3/uL (130-400); RBC 3.98 10^6/uL (3.93-5.22); RDW-SD 40.9 fL; WBC 9.75 10^3/uL (4.4-10.8)
[2020-01-31 07:31] LABS: BUN 22 mg/dL (7-18); Calcium 8.2 mg/dL (8.5-10.1); Chloride 106 mmol/L (98-107); Estimated GFR 43.34 (mL/min/1.73m2); Glucose 154 mg/dL (74-106); Potassium 4.6 mmol/L (3.5-5.1); Sodium 139 mmol/L (136-145)
[2020-01-31] MEDS: Umeclidinium 7 CAP INHALER IH (07:45)
[2020-01-31] MEDS: Docusate Sodium 100 MG CAP PO ×2 (08:16→21:56)
[2020-01-31] MEDS: Normal Saline 500 ML IV ×2 (08:59→11:50)
--- NOTE | 2020-01-31 09:05 | PT.INIE ---
Date of service: 01/31/20 Time of Service: 08:35 PT Notes Visit Reasons: TAR WITH CS Inpatient Physical Therapy Evaluation Date: 01/31/20 Referring Doctor: Dr. Evonne Ruano PT Orders: PT CONSULT: s/p extensive hernia repair/ epidural Precautions: binder when sitting/standing; abdominal drains x 2 Patient Profile/Admitting Diagnosis: Patient 1 day s/p ventral hernia repair. PMHX: Abdominal pain Abnormal computed tomography of abdomen and pelvis Allergic rhinitis Anxiety Cervicalgia Colonic polyp COPD (chronic obstructive pulmonary disease) Depressive disorder Diverticular disease of large intestine Headache History of open sigmoidectomy for diverticular dx Hyperlipidemia Hypertension Hypothyroid Inguinal hernia hx of 3 hernia repairs @ [facility] Insomnia Nonsustained ventricular tachycardia F/U with PCP regularly 12/07/19 Osteoarthritis of left hand Ventral hernia Social History/Home Situation: Patient lives independently with her , who has ongoing health issues. They live in their own home with ramp to enter. Their sons check in on them daily and assist with care for Nayely's . She states that they will be able to assist more when she returns home. Equipment Owned/DME: ramp Subjective: Nayely states that she's feeling well. She has some abdominal pain, but states that it is manageable. Objective: General Observation: Resting in bed with IV in LUE, abdominal drains x 2. Mental Status: A&Ox3 Pain: post-operative abdominal pain; manageable Vital Signs: in low 100s systolically prior to PT consult per nursing. Sitting at EOB she reports dizziness that persists x 3 minutes. BP is 106/62. Dizziness resolves with return to supine position. ROM: Right Upper Extremity: WFL Left Upper Extremity: WFL Right Lower Extremity: WFL Left Lower Extremity: WFL Strength: Right Upper Extremity: Not assessed with MMT due to post-op status Left Upper Extremity: Not assessed with MMT due to post-op status Right Lower Extremity: Not assessed with MMT due to post-op status Left Lower Extremity: Not assessed with MMT due to post-op status Sensation: intact distally Bed Mobility/Transfers: supine-sit: supervision with HOB at 35 degrees. Assistance for management of drains, and max A for management of abdominal binder sit-supine: supervision with HOB at 35 degrees. Assistance for management of drains sit-stand: CGA stand-sit: CGA scoot up in bed: mod A x 2 Gait: unable due to dizziness. Patient is able to stand at EOB x 1 minute with CGA. Balance: Static Sitting: good Dynamic Sitting: fair Static Standing: fair Dynamic Standing: unable Special Tests: Mobility Limitations Standardized Measure [facility] AM-PAC 6 clicks Basic Mobility Inpatient Short Form: Raw Score: 15 CMS Score: 58% deficit Informed Consent/Education: Patient instructed in purpose of PT consult and plan of care. Assessment: Patient is a 79 year old female referred to physical therapy services with the diagnosis of ventral hernia repair 01/30/20. Patient presents with clinical signs and symptoms consistent with post-operative status, as demonstrated by the following impairment level findings: 1. Decreased activity tolerance 2. Dizziness with transfers, with low BP readings (full orthostatic set not performed during this session) Impairments are contributing to the following functional limitations: 1. Unable to ambulate 2. Increased time to perform transfers 3. Decreased tolerance to transfers 4. Unable to sit at EOB > 3 minutes due to dizziness Patient is assessed as Moderate 52054 complexity based on the following: History: 79 year old female, 1 day s/p hernia repair. Patient has low BP readings during today's session, significantly limiting her tolerance to early mobilization. Nursing was alerted and patient was receiving fluids at end of session. Examination: functional limitations as noted above Presentation: evolving Decision Making: moderate complexity Goals: Goals X1 week 1. Supine-Sit : independent 2. Sit-Supine: independent 3. Sit-Stand : independent 4. Stand-Sit : independent 5. Bed-Chair : independent with LRD 6. Chair-Bed : independent with LRD 7. Gait : supervision x 50' with LRD Plan of Care/Treatment Plan: 1-2x/day, 7 days/week x 1 week. Plan of care has been reviewed with the GRAIN OPERATIONS MANAGER providing the service under Physical Therapy direction. Initiate Physical Therapy intervention for strengthening, bed mobility, transfers, gait, stairs, balance training, use of assistive device. DISCHARGE RECOMMENDATIONS: Home. Will continue monitoring for need for assistive device. TREATMENT CODE/TIME: 8:35 -9:00 ([id number]) Jenni Weber, PT, DPT [facility]
[2020-01-31] MEDS: Tiotropium Bromide-Respimat 10 PUFF INH 2 PUFF IH (10:02)
--- NOTE | 2020-01-31 10:32 | W.PM.PROGNOT ---
Date of Service Date of service: 01/31/20 Time of Service: 10:32 Assessment and Plan Assessment and plan (1) Ventral hernia: Status: Acute Assessment and plan: Epidural in place, with good effect on pain control Regular diet Activity as tolerated Abdominal binder should be donned with activity Encouraged pulmonary toilet Subjective Subjective Interval history since last seen: Patient reports that she is feeling okay so far. Expressing fatigue, but denies having any pain. Exam Const General: cooperative, healthy appearing and comfortable Orientation: alert and oriented x3 Resp Effort & Inspection: normal respiratory effort, no audible wheezes and no cough GI Inspection: normal to inspection Palpation: not soft, no guarding and nontender Other: KACI dressing in place. JOSHUA Drains- Minimal bloody serous drainage Objective Last Vital Signs Temp 36 C L 01/31/20 07:28 Pulse 85 01/31/20 07:28 Resp 16 01/31/20 08:36 BP 101/65 01/31/20 07:28 Pulse Ox 91 L 01/31/20 07:28 Laboratory Results - last 24 hr 01/31/20 01/31/20 06:55 06:55 WBC 9.75 RBC 3.98 Hgb 11.7 Hct 34.3 L MCV 86.2 MCH 29.4 MCHC 34.1 RDW 13.0 Plt Count 183 MPV 9.5 Immature Gran % 0.4 Neutrophils % 77.3 Lymphocytes % 12.2 Monocytes % 9.9 Eosinophils % 0.0 Basophils % 0.2 Nucleated RBC % 0 Absolute Neutrophils 7.53 H Absolute Lymphocytes 1.19 L Absolute Monocytes 0.97 H Absolute Eosinophils 0.00 Absolute Basophils 0.02 Sodium 139 Potassium 4.6 Chloride 106 Carbon Dioxide 27.0 Anion Gap 6.0 BUN 22 H Creatinine 1.20 H Estimated GFR/1.73 m2 43.34 Glucose 154 H Calcium 8.2 L
--- NOTE | 2020-01-31 12:02 | PDOC.ANES ---
Date of service: 01/31/20 Time of Service: 17:02 Anesthesia Note DAILY EPIDURAL NOTE Pt. is up sitting in a chair with pain 1-2/10. She is eating and drinking and appears comfortable. This morning she attempted to get out of bed and became nauseated and diaphoretic. I saw her shortly after and changed her infusion rate to 8ml/hr. I also suggested if she is a 1/10 pain to not push the button in preparation of more pain when moving as this may have contributed, although not extremely likely. Throughout the day she did well and is using her PCEA as needed. Dressing is intact with catheter at 11cm at skin without redness/swelling. Will continue tonight and re-evaluate tomorrow.
[2020-01-31] MEDS: Lactated Ringers 1,000 ML 85 ML IV (13:15)
--- NOTE | 2020-01-31 14:47 | PT.INTREAT ---
Date of service: 01/31/20 Time of Service: 14:25 PT Notes Visit Reasons: TAR WITH CS Inpatient Physical Therapy Treatment Note [facility] Date: 01/31/20 PRECAUTIONS:fall, standard SUBJECTIVE: Nayely states that her head is feeling clearer than this morning. She's feeling ready to try walking. OBJECTIVE: Therapeutic Activities: BED MOBILITY/TRANSFERS Sit-stand: CGA Stand-sit: CGA GAIT: Training in FWW management, gait training, transfer training as noted. Assistive Device: FWW ; abdominal binder; chair follow. Further assistance for management of lines and IV pole Weight bearing: AT Assist: CGA x 2 Distance: 50' Deviation: cues for FWW management ASSESSMENT: Improved mobility since this morning. Able to ambulate 50' with fatigue, but overall good tolerance. PLAN: Continue progressing ambulation as tolerated. TREATMENT CODE/TIME: 20 minutes (2:25-2:45); [id number]
--- NOTE | 2020-01-31 15:25 | PHA.REVIEW ---
Pharmacy Admission Review - Admission Clinical Review (Last Updated 01/30/20 @ 06:28 by Marva Roberts) History of open sigmoidectomy (Acute) Ventral hernia (Acute) Hyperlipidemia (Acute) lisinopril Allergy (Severe, Verified 01/30/20 06:24) Sulfa (Sulfonamide Antibiotics) Allergy (Intermediate, Verified 01/30/20 06:24) sulfamethoxazole [From Bactrim] Allergy (Intermediate, Verified 01/30/20 06:24) trimethoprim [From Bactrim] Allergy (Intermediate, Verified 01/30/20 06:24) Height 4 ft 10.5 in Weight 62.4 kg - Renal Dosing Renal Dosing: BUN 22 mg/dL (7-18) H 01/31/20 06:55 Creatinine 1.20 mg/dL (0.55-1.02) H 01/31/20 06:55 Medications needing adjustments: Reviewed (Crcl ~27.3 mL/min. It's recommended to use 25% of normal dose of ramipril with pts current renal function. We only have 5 mg caps in the pharmacy. Will mention to provider to get their thoughts on this. Ramipril put on hold.) - Anticoagulation Anticoagulation: Hgb 11.7 g/dL (11.2-15.7) 01/31/20 06:55 Hct 34.3 % (36.0-46.0) L 01/31/20 06:55 Plt Count 183 10^3/uL (130-400) 01/31/20 06:55 Creatinine 1.20 mg/dL (0.55-1.02) H 01/31/20 06:55 DVT Prohphylaxis: Reviewed Medications: Heparin Therapeutic Anticoagulation: N/A - Opiate Usage Evaluate Pain Scale/Pains Meds: Reviewed Scheduled Bowel Reg ordered if on Opiates?: Yes - Relevant Labs Sodium 139 mmol/L (136-145) 01/31/20 06:55 Potassium 4.6 mmol/L (3.5-5.1) 01/31/20 06:55 Chloride 106 mmol/L (98-107) 01/31/20 06:55 Electrolytes, C-Reactive P, ESR: Reviewed - DM Control DM Control: Glucose 154 mg/dL (74-106) H 01/31/20 06:55 Insulin Dosing: N/A - Heart Failure/IA EF%, DA's, B-Blockers, Diuretics: N/A - BP Control BP Control: Blood Pressure 121/69 Blood Pressure 128/71 Blood Pressure 94/57 Blood Pressure 101/65 Blood Pressure 114/53 If elevated: Reviewed (low/normal) - Qtc Review If Elevated: N/A - IV to PO Switch IV Medications: Reviewed - Home Meds Home Med List reviewed: Reviewed (Multiple anticholinergic meds (cetirizine, umeclidinium)- recommended to avoid concurrent use; monitor for anticholinergic related toxicities if used in combination.) Relevent Home Meds Not ordered & why?: cetirizine, coenzyme Q-10, diazepam, incruse ellipta (changed to tiotropium so not dry powder as pt was having difficulty with that per respiratory), nabumatone(was discontinued) - Current meds Current Medication Order Review: Intervened (Discontinued PACU orders, adjusted timing of heparin dose so on even hour per protocol) - Comments Comments/Follow Ups: Watch BP, BG, SCR, and for med changes (epidural rate changes, pain medication changed, renal dosing adjustments, resumption of ramipril).
--- NOTE | 2020-01-31 15:32 | CHAPLAIN ---
Nayely was resting in bed when I visited. She shared personal history, telling me of her 's dementia diagnosis, their move from their longtime home in [place] to [place], where they live near their sons. Nayely's care for her has become more time consuming and stressful. She seemed relieved to be able to tell her story and voice some of her frustrations.
--- NOTE | 2020-01-31 18:32 | INITIAL_ITS ---
- If Service Date Differs Date of service: 01/31/20 Time of Service: 18:32 Care Management Initial Assess REASON FOR HOSPITALIZATION:: Hernia repair PAST MEDICAL HISTORY/PAST SURGICAL HISTORY:: Medical History . Abdominal pain. Abnormal computed tomography of abdomen and pelvis. Allergic rhinitis. Anxiety. Cervicalgia. Colonic polyp. COPD (chronic obstructive pulmonary disease). Depressive disorder. Diverticular disease of large intestine. Headache. History of open sigmoidectomy. for diverticular dx. Hyperlipidemia. Hypertension. Hypothyroid. Inguinal hernia. hx of 3 hernia repairs @ [facility]. Insomnia. Nonsustained ventricular tachycardia. F/U with PCP regularly 12/07/19. Osteoarthritis of left hand. Ventral hernia. Surgical History . H/O detached retina repair. @ [facility]. H/O: hysterectomy. History of cholecystectomy. History of colectomy (~07/12/10). [facility]. History of colonoscopy. 2000 3 year recall. 2002 5 year recall. ?? tubular adenoma & hyperplastic polyps [facility] 12/10/2010. History of hernia repair. 1993- [facility]. 10/28/2012 [facility]. September 08, 2013 [facility]. Hx of appendectomy PREVIOUS FUNCTIONAL STATUS/SOCIAL/FAMILY SUPPORTS:: nayely lives with her Yunior in [place], [place]. They have 4 children, and many grandchildren and all of them live in the area. Nayely describes the family as being very close and supportive. Nayely cares for Yunior at home as he has advancing dementia. Her son Richard and [id number] Brittani live across the street and provide meals and support with Yunior's care. Nayely is independent at baseline with ADLs and receives no community services. CURRENT FUNCTIONAL STATUS:: Nayely was sitting up in a chair dozing when met with her. She is well known to this lawn caretaker and was very receptive to the visit and conversation. She revealed some of the details and events of their recent home life and shared that overall, things are going well. She did admit that Yunior has been having some angry outbursts but stated that his dementia medication has helped a lot. ADVANCE DIRECTIVES:: on file. Yunior [facility] Has patient been provided with info about the portal/API?: No Did the patient sign up for the portal?: No CODE STATUS:: Full Code INSURANCE COVERAGE / FINANCIAL ISSUES:: Medicare. [employer]. BC BS. for Life CURRENT HOME/COMMUNITY SERVICES/EQUIPMENT:: none PRIMARY CARE PHYSICIAN:: Michelle Resendiz POTENTIAL DISCHARGE NEEDS:: Follow up with surgeon and discharge plan of care PATIENT/FAMILY EDUCATION NEEDS:: Discharge plan, limitations, follow up plan, Ask Me Three TRANSPORTATION:: via private vehicle with family PLAN:: Nayely will be discharged home with no new services. She will follow up with her PCP, surgeon and discharge plan of care. CM will continue to support Nayely, her family and discharge planning considerations.
[2020-02-01] VITALS (11 sets, daily range): BP systolic 100–128; BP diastolic 63–79; PULSE 78–91; RESP 16–21; TEMP 36.3–36.9; O2SAT 90–100
[2020-02-01] MEDS: Lactated Ringers 1,000 ML 85 ML IV (00:21)
[2020-02-01] MEDS: FentaNYL/ROPIvacaine 2 mcg/ml and 0.1% 200 ML CADD Cassette EP ×2 (01:20→16:20)
[2020-02-01] MEDS: Acetaminophen 500 MG TAB 1000 MG PO ×2 (05:22→21:44)
[2020-02-01] MEDS: Levothyroxine 75 MCG TAB PO (05:23)
[2020-02-01] MEDS: Heparin 5,000 UNITS/ML VIAL 5000 UNITS SC ×2 (05:23→18:07)
[2020-02-01 06:55] LABS: Abs Immature Grans 0.03 10^3/uL (0.0-0.06); Absolute Basophil Count 0.03 10^3/uL (0.0-0.2); Absolute Eosinophil Count 0.14 10^3/uL (0.0-0.7); Absolute Monocyte Count 0.63 10^3/uL (0.1-0.8); Absolute Neutrophil Count 7.06 10^3/uL (1.2-6.7); Basophils % 0.3; Eosinophils % 1.6; HCT 29.7 % (36.0-46.0); Immature Grans % 0.3; Lymphocytes % 10.2; MCH 29.1 pg (27.0-33.0); MCHC 33.7 % (32.0-36.0); MCV 86.3 fL (80-95); MPV 9.3 fL (8.0-11.0); Monocytes % 7.2; Neutrophils % 80.4; Nucleated RBC 0 %; Platelet Count 171 10^3/uL (130-400); RBC 3.44 10^6/uL (3.93-5.22); RDW 13.4 % (11.7-14.6); RDW-SD 41.8 fL; WBC 8.79 10^3/uL (4.4-10.8)
[2020-02-01] MEDS: Docusate Sodium 100 MG CAP PO ×2 (07:49→19:58)
[2020-02-01] MEDS: Ondansetron 4 MG/2 ML VIAL IVP ×3 (07:49→21:44)
[2020-02-01] MEDS: Normal Saline Flush 10 ML SYR IVP ×3 (07:49→14:48)
--- NOTE | 2020-02-01 08:20 | W.PM.PROGNOT ---
Documented by User: GUZMAN Davis 02/01/20 08:27 Date of Service Date of service: 02/01/20 Time of Service: 08:20 Assessment and Plan Assessment and plan (1) Ventral hernia: Status: Acute Assessment and plan: Epidural in place, with good effect on pain control. This will be weaned down. Regular diet Increase Activity as tolerated Abdominal binder should be donned with activity. Assisted patient in donning abdominal binder, to offer support and comfort while dry heaving. Nsg gave Zofran. Encouraged pulmonary toilet Subjective Subjective Interval history since last seen: I feel like I need to throw up. Arrived with patient dry heaving. She reports her pain is fairly well controlled, however her discomfort increases with dry-heaving. Exam Const General: cooperative and in distress mild Orientation: alert and oriented x3 Resp Effort & Inspection: normal respiratory effort, no audible wheezes and no cough GI Palpation: soft, no guarding and nontender Other: Vern Dressing in place. No drainage noted on dressing. JOSHUA drains in place with bloody drainage Objective Last Vital Signs Temp 36.8 C 02/01/20 07:16 Pulse 78 02/01/20 07:16 Resp 17 02/01/20 07:16 BP 104/69 02/01/20 07:16 Pulse Ox 96 02/01/20 07:16 Laboratory Results - last 24 hr 02/01/20 06:23 WBC 8.79 RBC 3.44 L Hgb 10.0 L Hct 29.7 L MCV 86.3 MCH 29.1 MCHC 33.7 RDW 13.4 Plt Count 171 MPV 9.3 Immature Gran % 0.3 Neutrophils % 80.4 Lymphocytes % 10.2 Monocytes % 7.2 Eosinophils % 1.6 Basophils % 0.3 Nucleated RBC % 0 Absolute Neutrophils 7.06 H Absolute Lymphocytes 0.90 L Absolute Monocytes 0.63 Absolute Eosinophils 0.14 Absolute Basophils 0.03 Documented by User: Evonne Ruano DO 02/01/20 09:36 Assessment and Plan Assessment and plan (1) Ventral hernia: Status: Acute Assessment and plan: Patient seen and examined. Agree with above. Patient was eating breakfast of toast and orange juice when I saw her. I think her dry heaves were more related to a coughing spell that made her gag. Per respiratory she is not pulling in good volumes, no more than 700 cc. However I am not sure that her baseline is much more than that. She says she has no pain right now. Although she says she is not coughing real well either. She still has the epidural in. She was up walking yesterday. She still has a catheter in. She has not had a bowel movement yet. She was running a temp yesterday at some point but none today. The bulbs appear mostly serous. Her wound is dressed and she has a binder on it she is her breakfast. I will look at her wound later on this evening. Agree with the above plan.
[2020-02-01] MEDS: Tiotropium Bromide-Respimat 10 PUFF INH 2 PUFF IH (08:21)
--- NOTE | 2020-02-01 09:26 | PDOC.CMPRO ---
- If Service Date Differs Date of service: 02/01/20 Time of Service: 09:26 Care Management Progress Note S/O:Nayely was reclining in a chair when CM met with her. She complained of feeling nauseated and stated that she vomited last night. Nayely was pale and stated that she just needed to rest. She denies pain at this time. At her request, CM was able to assist Nayely with straightening out some of her 's prescriptions, which she was thankful for. A: Nayely is a pleasant 79 year old woman admitted on 01/30/20 for a ventral hernia repair P:Nayely will be discharged home with no new services. She will follow up with her PCP, surgeon and discharge plan of care. CM will continue to support Nayely, her family and discharge planning considerations.
--- NOTE | 2020-02-01 13:54 | PDOC.ANES ---
Date of service: 02/01/20 Time of Service: 13:54 Anesthesia Note Report Anesthesia Note: Pt sitting up in bed, currently denies much in the way of discomfort. Has been up and walking with good results. She has only used the PCEA button once in the past 24 hrs. She is getting zofran right now. Discussed with her and her RN that if the zofran does not relieve her nausea the fentanyl in the epidrual could be to blame. Discussed that if she gets no reilef from the zofran that her RN could give her a small bolus of narcan to try to make it better. I did not have her sit forward to evaluate the dressing/site due to her currently vomiting, but the RN states that she just checked it and that it is intact and without signs/symptoms of infection.
--- NOTE | 2020-02-01 14:30 | PT.INTREAT ---
PT Notes Visit Reasons: TAR WITH CS 02/01/2020 SUBJECTIVE: Nayely reporting minimal discomfort in her abdomen but does have pressure. She notes she has been quite nauseated. This is worse during our PM session. OBJECTIVE: Pt seen in AM and PM for PT services. Treatment as below; TRANSFERS Sit to stand: CGA Stand to sit: CGA Sit to supine: Min A for LE's GAIT Device: FWW Weight bearing: Full Assist: CGA Distance: 50' in AM, 80' in PM Deviation: Slow cautious gait pattern THEREX: Light LE strengthening performed in seated position in the AM. See flow sheet. Defer in PM due to pt's nausea and dry heaves. ASSESSMENT: Tolerating gait well with minimal discomfort in her abdomen. She continues to feel weak overall per subjective report and is not tolerating her diet well. PLAN: Continue to progress her mobility as tolerated. AM Treatment: 20 minutes PM Treatment: 15 minutes Patricia Bradley PTA Clinic location: [facility] [place], [place]
[2020-02-01] MEDS: Naloxone 0.4 MG/ML VIAL IVP (14:47)
--- NOTE | 2020-02-01 16:27 | CHAPLAIN ---
I had a brief visit with Nayely to bring her a prayer shawl. I will continue to visit.
[2020-02-01] MEDS: Magnesium Citrate 300 ML BTL PO (18:45)
[2020-02-02] VITALS (9 sets, daily range): BP systolic 120–145; BP diastolic 72–77; PULSE 79–86; RESP 16–20; TEMP 36.5–37.1; O2SAT 94–98
[2020-02-02] MEDS: traMADol 50 MG TAB PO ×2 (03:18→17:11)
[2020-02-02] MEDS: Levothyroxine 75 MCG TAB PO (05:33)
[2020-02-02] MEDS: Acetaminophen 500 MG TAB 1000 MG PO ×3 (05:34→21:26)
[2020-02-02] MEDS: Heparin 5,000 UNITS/ML VIAL 5000 UNITS SC ×2 (05:35→17:11)
[2020-02-02] MEDS: Tiotropium Bromide-Respimat 10 PUFF INH 2 PUFF IH (07:41)
[2020-02-02] MEDS: Docusate Sodium 100 MG CAP PO ×2 (09:07→19:34)
--- NOTE | 2020-02-02 09:47 | PTTR_ITS ---
Date of service: 02/02/20 Time of Service: 09:47 PT Notes Visit Reasons: TAR WITH CS 02/02/2020 SUBJECTIVE: Nayely stating she is feeling better today. She was able to eat her breakfast this morning. Her abdomen is not painful but she does feel pressure. OBJECTIVE: [id number] TRANSFERS Sit to stand: S Stand to sit: S GAIT Device: FWW Weight bearing: Full Assist: SBA Distance: 150' THEREX: Defer due to fagtigue. ASSESSMENT: Tolerates increase in gait well today although this does make her tired. Overall looking better than yesterday with better ease in movement. PLAN: Continue with current POC and progress gait and strength as she is able to tolerate. Treatment time: 12 minutes Patricia Bradley PTA Clinic location: [facility] [place], [place]
--- NOTE | 2020-02-02 10:07 | PDOC.ANES ---
Date of service: 02/02/20 Time of Service: 10:07 Anesthesia Note Report Anesthesia Note: Anesthesia to bedside for planned discontinuation of epidural for trial this morning. Patient found alert and oriented in bed. Epidural pump was found off. Patient was unaware of who had discontinued the infusion, however, believed it was in the evening and discontinued due to her nausea. Patient's restaurant shift leader RN and day shift RN to bedside and discussed discontinuation. Per RN the epidural pump was discontinued by Dr. Ruano yesterday evening with assistance from the RN. Anesthesia was not notified of the change, orders were not modified to reflect the change. Patient is currently comfortable, had a tramadol per RN at around 3 AM. Patient reports is currently comfortable. I educated Nursing that any change in epidural status should be communicated to the managing on-call anesthesia provider. Plan is to re-evaluate in a few minutes and pull the epidural if patient remains comfortable.
--- NOTE | 2020-02-02 10:52 | W.NUTRFU ---
Date of service: 02/02/20 Time of Service: 10:52 Nutritional Follow up NOTE: 79 year old female admitted for hernia repair. BMI 28 wnl for age. Tolerating Post Op diet and currently meeting nutrient and fluid needs. Not at nutritional risk at this time. will continue to follow. Time Spent in Nutritional Counseling and Treatment: 0
--- NOTE | 2020-02-02 10:53 | PDOC.ANES ---
Date of service: 02/02/20 Time of Service: 10:53 Anesthesia Note Report Anesthesia Note: Epidural removal note: Patient evaluated at bedside, reports minimal discomfort. Denies questions or concerns related to the epidural and agrees with the plan for removal. Motorsensory intact throughout. Vital signs stable. As per the anesthesia plan, epidural catheter removed at 1031, tip intact. Site was clean and intact. Bandaid applied. Patient was left in presence of floor RNs and student nurses.
--- NOTE | 2020-02-02 13:17 | PT.INTREAT ---
Date of service: 02/02/20 Time of Service: 13:17 PT Notes Visit Reasons: TAR WITH CS 02/02/2020 SUBJECTIVE: Nayely stating she felt quite tired after lunch but has not been able to fall asleep. She is agreeable to PM PT treatment. OBJECTIVE: [id number] TRANSFERS Supine to sit: I Sit to supine: I Sit to stand: I Stand to sit: I GAIT Device: FWW Weight bearing: Full Assist: S Distance: 250' ASSESSMENT: Pt able to increase her ambulation distance with difficulty. Pt will benefit from FWW at home to assist in energy conservation until she gets her strength back. PLAN: Continue per POC. Treatment time: 12 minutes Patricia Bradley PTA Clinic location: [facility] [place], [place]
--- NOTE | 2020-02-02 14:26 | W.PM.PROGNOT ---
Date of Service Date of service: 02/02/20 Time of Service: 14:26 Assessment and Plan Assessment and plan (1) Ventral hernia: Status: Acute Assessment and plan: POD #3 open incionsal hernia repair. d/c'ed epidural. nausea has improved. she is tolerating a regular diet. she is up walking she says she feels week still. PICOS dressing was changed today adn will leave in place for 5 days. WIll arrange home RN for drain care. Probably home PT as well d/c home when pt is feeling stronger. Subjective Subjective Interval history since last seen: Pt is doing well. no headaches. No CP or SOB. no productive cough. no leg pain or swelling. She says she still feels week. Nausea has improved w/ cessation of the epidural. She had a BM+ Exam HENMT Other: no thrush Resp Effort & Inspection: normal respiratory effort and able to speak in complete sentences Auscultation: clear to auscultation bilaterally Cardio Rate: regular rate Rhythm: regular rhythm GI Inspection: incision (c/d/i. mild echymosis) Palpation: soft Auscultation: normal bowel sounds Other: genevieve- output noted sero-sang. Extrem General: no clubbing, cyanosis or edema Objective Last Vital Signs Temp 36.6 C 02/02/20 11:15 Pulse 84 02/02/20 11:15 Resp 20 02/02/20 11:15 BP 129/77 02/02/20 11:15 Pulse Ox 94 02/02/20 11:15
--- NOTE | 2020-02-02 16:05 | PDOC.CMPRO ---
- If Service Date Differs Date of service: 02/02/20 Time of Service: 16:05 Care Management Progress Note S/O:Nayely was reclining in a chair when CM met with her. She was smiling and appeared to be in good spirits. She stated that she was feeling much better than yesterday and that she was no longer sick to my stomach. The epidural had been removed but Nayely reassured CM that she remained pain free. Nayely will likely be discharged home with [address] Ruano requested that Nayely have home health for wound care and ROSELIA made the referral. Nayely is a little bit nervous about going home she shared, as her Yunior has dementia and has a tendency to expect Nayely to do everything. Nayely did say that her children and their spouses are very supportive and will have someone stay at the home with Nayely and Yunior for the first week or so. A: Nayely is a pleasant 79 year old woman admitted on 01/30/20 for a ventral hernia repair P:Nayely will be discharged home with new home health services for wound care. ROSELIA contacted [facility] and made the referral and informed them that discharge would likely occur tomorrow or Thursday. She will follow up with her PCP, surgeon and discharge plan of care. CM will continue to support Nayely, her family and discharge planning considerations.
[2020-02-03 03:03] VITALS: BP 119/70; PULSE 79; RESP 18; TEMP 36.6; O2SAT 94
[2020-02-03] MEDS: Levothyroxine 75 MCG TAB PO (05:11)
[2020-02-03] MEDS: Acetaminophen 500 MG TAB 1000 MG PO ×2 (05:12→13:13)
[2020-02-03] MEDS: Heparin 5,000 UNITS/ML VIAL 5000 UNITS SC (05:13)
[2020-02-03 07:42] VITALS: BP 138/77; PULSE 76; RESP 16; TEMP 36.5; O2SAT 97
[2020-02-03] MEDS: Tiotropium Bromide-Respimat 10 PUFF INH 2 PUFF IH (07:55)
--- NOTE | 2020-02-03 09:10 | W.PM.PROGNOT ---
Documented by User: GUZMAN Davis 02/03/20 09:22 Date of Service Date of service: 02/03/20 Time of Service: 09:10 Assessment and Plan Assessment and plan (1) Ventral hernia: Status: Acute Assessment and plan: POD #4 s/p open incisional hernia repair with Dr. Ruano Pain is currently well controlled KACI dressing in place JOSHUA drains with bloody serous drainage. Tolerating regular diet Ambulating independently. Will order home health nsg for wound care and managing drains along with PT. D/C home once feeling stronger. Subjective Subjective Interval history since last seen: Nayely reports she is feeling well and expresses eagerness to return home. She reports she has been working with nsg staff in emptying her JOSHUA drains. Denies pain at this time. Exam Const General: cooperative, healthy appearing and comfortable Orientation: alert and oriented x3 Resp Effort & Inspection: normal respiratory effort, no audible wheezes and no cough GI Other: Midline wound dressed with KACI. JOSHUA drains with bloody, serous drainage present. No erythema or swelling noted around JOSHUA drain sites. Objective Last Vital Signs Temp 36.5 C 02/03/20 07:42 Pulse 76 02/03/20 07:42 Resp 16 02/03/20 07:42 BP 138/77 02/03/20 07:42 Pulse Ox 97 02/03/20 07:42 Documented by User: Evonne Ruano DO 02/04/20 18:03 Assessment and Plan Assessment and plan (1) Ventral hernia: Status: Acute Assessment and plan: pt seen and examined. Agree with above. Her kaci was changed 1112. Her incision at the point was clean dry and intact. Her drain output is serosanguineous and still about 100 cc a day. Patient is able to get up and toilet herself. She is eating and she no longer has any nausea since the epidural was DC'd. She does find that her appetite is diminished. She did have a bowel movement yesterday. At this point patient does not wish to go home. We will arrange this. She will have home health RN for her drains. She can leave the kaci's dressing in place until Thursday and we will take it off at the office. She should empty her drains twice a day and record output. Encourage walking and nutrition. Patient will follow up in the office Thursday please see discharge summary
--- NOTE | 2020-02-03 10:43 | PDOC.HHF2F_ITS ---
Home Health Certification Home Health Certification: 1. Encounter Date and Reason I certify that TSEWART BRENNAN was seen by Evonne Ruano on 02/03/20 and that I had a [id number] encounter with this patient that meets the physician face to face encounter requirements. 2. Clinical Findings Supporting Skilled Need and Homebound Status I certify that home health services are medically necessary, include either intermittent custodial and/or physical/speech therapy, and that this patient is homebound in that absences from the home require considerable and taxing effort and are infrequent or of short duration, or are attributable to the need to receive medical care. [X] (a) Attached documentation from encounter provides clinical findings supporting skilled need and homebound status (including what assistance patient requires to leave the home). The encounter with the patient was in whole, or in part, for the following medical condition, which is the primary reason for home health care: TAR WITH Detention:Home RN for drain care Physical Therapy: strength and gait Speech Therapy: Homebound: Yes 3. Certification and Authentication I certify that I composed the above information based on my clinical judgement relating to this patient's medical condition and, if applicable, clinical findings communicated to me by the NPP or inpatient physician who performed the Home Health Referral. All further orders will be obtained through Tenzin Resendiz (Community Based Physician - PCP)
[2020-02-03 11:02] VITALS: BP 153/51; PULSE 88; RESP 16; TEMP 36.9; O2SAT 97
--- NOTE | 2020-02-03 11:08 | W.PM.DS.N ---
Date of service: 02/03/20 Time of Service: 11:10 DS: Diagnosis Discharge Diagnosis (1) Ventral hernia: Status: Acute (2) Hypothyroid: Status: Chronic (3) Hypertension: Status: Chronic (4) Hyperlipidemia: Status: Acute (5) COPD (chronic obstructive pulmonary disease): Status: Chronic Discharge Plan Disposition Patient Disposition: HOME Condition: Improving Discharge Details Reason For Visit: TAR WITH CS Admit Date/Time: 01/30/20 06:00 Admit Provider: Evonne Ruano Attending Provider: Evonne Rauno Primary Care Provider: Doretha Resendiz Home Meds and New Rx's Prescriptions: New tramadol 50 mg Tablet 50 mg PO Q4H PRN PRNQty: 15 RF: 0 docusate sodium [Colace] 100 mg Capsule 100 mg PO BID Qty: 60 RF: 0 Spiriva Respimat 2.5 mcg/actuation Mist 2 puff inhalation DAILY Qty: 30 RF: 0 Continued acetaminophen [Tylenol Arthritis Pain] 650 mg tablet extended release 650 mg PO Q12H RF: 0 levothyroxine 75 mcg tablet 75 mcg PO DAILY RF: 0 ramipril 5 mg capsule 5 mg PO DAILY RF: 0 cetirizine [Zyrtec] 10 mg Tablet 10 mg PO DAILY PRNRF: 0 albuterol sulfate [ProAir HFA] 90 mcg/actuation Hfa Aerosol Inhaler 2 puff INHALATION Q6H PRNRF: 0 coenzyme Q10 [CoQ-10] 30 mg Capsule 30 mg PO DAILY RF: 0 diazepam 5 mg Tablet 5 mg PO DAILY PRN (Reason: Anxiety) RF: 0 nabumetone 500 mg Tablet 500 mg PO DAILY RF: 0 Discontinued Incruse Ellipta 62.5 mcg/actuation Blister With Device 1 inh INHALATION DAILY RF: 0 Discharge Instructions Additional Instructions: Keep an ice bag on the incision. 20 minutes on and 20 minutes off. Ice keeps the swelling down and swelling causes pain. Make sure you wrap the ice pack in a towel and don't apply directly to the skin. -No driving x2 week or of you are taking pain medications. -Leave Prevena dressing in place. If the motor is beeping or flashing yellow- you will ventura to reinforce the tegaderm dressing. If it occurs at night- just disconnect the motor and have the home RN address in am. -Follow-up with Dr. Ruano on Thursday as scheduled. -regular diet. protein supplements twice a day. -no straining to move bowels -pain meds are very constipating: if you do not move your bowels daily take a dose of OTC milk of magnesia -It is ok to shower. cover the Prevena w/ plastic wrap (Saran wrap) to whoer. No bathe, soaking, swimming or hot tubs -empty drains 1-2 x a day. record output and bring record to your follow up appt on Thursday. -Protein supplements daily. You may find that your appetite is smaller. Eat 3-6 small meals throughout the day. It is important to drink lots of water after surgery, 6-10 glasses a day. -If you were given an incentive spirometry (breathing furniture dipper?), continue to do this 10x/hour while awake. -We do want you up walking, at least 5-6 times per day. This is very important to prevent pneumonia and blood clots. You can climb stairs, take them slowly. -No lifting over 5 pounds for SIX weeks. This is very important to avoid developing a hernia in your incision. -You may find that you are very tired after surgery- this is normal. Stand Alone Forms: Nursing Discharge Form Referrals: Doretha Resendiz [Primary Care Provider] - 02/13/20 8:55 am Evonne Ruano DO [OSTEOPATHIC DOCTOR] - 02/08/20 3:30 pm Activity:: no lifting over 5#'s for Equipment/Supplies:: Walker Diet:: As Tolerated DS: Summary Status at Discharge Functional status at discharge: uses cane/walker Overall status at discharge: patient is progressing back to baseline Mental Status: mental status grossly normal Speech and Movement: speech and movement normal Mood: congruent mood Affect: normal affect Exam Psych Mental Status: mental status grossly normal Speech and Movement: speech and movement normal Mood: congruent mood Affect: normal affect DS: Data Vitals/I&O Vitals and I&O: Vital Signs Temperature 36.9 C 02/03/20 11:02 Temperature Source Tympanic 02/03/20 11:02 Pulse 88 02/03/20 11:02 Pulse Rhythm Regular 02/02/20 20:58 Respiratory Rate 16 02/03/20 11:02 Respiratory Effort Non-Labored 02/02/20 20:58 Respiratory Depth Normal 02/02/20 20:58 Respiratory Pattern Normal 02/02/20 20:58 Blood Pressure 153/51 H 02/03/20 11:02 Blood Pressure Mean 83 01/30/20 15:55 Blood Pressure Position Supine 01/30/20 15:55 Pulse Oximetry 97 02/03/20 11:02 Respiratory End-tidal CO2 32 01/30/20 15:15 Oxygen Delivery Method Room Air 02/03/20 11:02 Oxygen Flow Rate 0 02/03/20 11:02 Pain Level 0 02/03/20 11:02 Comment 01/31/20 16:14 Intake & Output 02/02/20 02/02/20 02/03/20 11:59 23:59 11:59 Intake Total 340 / 1200 860 / 1200 1180 / 1180 Output Total 560 / 680 120 / 680 130 / 130 Balance -220 / 520 740 / 520 1050 / 1050 Intake: IV 1000 / 1000 Oral 300 / 1160 860 / 1160 180 / 180 Injectate 40 / 40 Left abd drain 1 10 / 10 Right abd drain 2 30 / 30 Output: Drainage 60 / 180 120 / 180 130 / 130 Left abd drain 1 20 / 90 70 / 90 80 / 80 Right abd drain 2 40 / 90 50 / 90 50 / 50 Urine 500 / 500 Other: Urine Color Yellow Yellow Urine Appearance Clear Clear Clear Urine Odor Normal Comment Patient voided in toilet, per patient. independent Stool Size Small Moderate Stool Characteristics Soft Soft Brown Voiding Methods Self-Catheterization Toilet Toilet [facility] Medical History (Updated 01/30/20 @ 06:28 by Marva Roberts) Abdominal pain Abnormal computed tomography of abdomen and pelvis Allergic rhinitis Anxiety Cervicalgia Colonic polyp COPD (chronic obstructive pulmonary disease) pt. questions this Depressive disorder Diverticular disease of large intestine Headache History of open sigmoidectomy for diverticular dx Hyperlipidemia Hypertension Hypothyroid Inguinal hernia hx of 3 hernia repairs @ [facility] Insomnia Nonsustained ventricular tachycardia F/U with PCP regularly 12/07/19 Osteoarthritis of left hand Ventral hernia Surgical History (Updated 01/31/20 @ 14:35 by Mariely Malhotra RN) H/O detached retina repair @ [facility] H/O ventral hernia repair (~01/30/20) Dr. Ruano H/O: hysterectomy History of cholecystectomy History of colectomy (~07/12/10) [facility] History of colonoscopy 2001 3 year recall 2003 5 year recall ?? tubular adenoma & hyperplastic polyps [facility] 12/10/2010 History of hernia repair 1993- [facility] 10/28/2012 [facility] September 08, 2013 [facility] Hx of appendectomy Social History Smoking/Tobacco Use Status: Never Smoking risk assessment performed?: Yes Alcohol Intake: current Alcohol Intake frequency: holidays/special occasions only Drug use: Never Substance use type: does not use Current gender identity: female Do you feel safe at home: Yes Do you feel safe in your relationship?: Yes
--- NOTE | 2020-02-03 11:33 | PT.INTREAT ---
Date of service: 02/03/20 Time of Service: 09:15 PT Notes Visit Reasons: TAR WITH CS Inpatient Physical Therapy Treatment Note [facility] Date: 02/03/2020 PRECAUTIONS: Fall, abdominal drains x2 SUBJECTIVE: Nayely states that she continues to feel a little weak, but feels that she is capable of managing at home with her functional daily tasks. She reports that she would like to use a FWW upon return to home. OBJECTIVE: PAIN: No c/o pain BED MOBILITY/TRANSFERS Supine-sit: I with HOB flat Sit-supine: I with HOB flat Sit-stand: I Stand-sit: I Bed-Chair: I Chair-bed: I GAIT Assistive Device: FWW No AD Weight bearing: Full Assist: I with FWW SBA without AD Distance: 400' with FWW 20' without AD Deviation: My legs feel weak, steady pace THEREX: Patient was instructed in a LE strengthening program, completed in a standing position, as per flow sheet. ASSESSMENT: Patient tolerated session well, without complaint. She was able to tolerate a progression in gait distance and in ther ex program. She would benefit from continued global strengthening for continued progression toward baseline level of function. PLAN: Continue with global strengthening for continued progression toward baseline level of function via Home Health PT upon discharge TREATMENT CODE/TIME: 25 minutes; 55492, [id number]
[2020-02-03 12:02] VITALS: RESP 16; O2SAT 97
--- NOTE | 2020-02-03 12:55 | PDOC.CMDIS ---
- If Service Date Differs Date of service: 02/03/20 Time of Service: 12:56 LACE Index Scoring Tool - Questions: Length of Stay (in days): 4 - 6 Acuity (Admit via E.D.?): No Comorbidities: Chronic Pulmonary Disease E.D. Visits: 0 - Answers: Total Score: 6 Risk of Readmission: Low Risk Care Management Discharge Reason for Hospitalization: Hernia repair Discharge Plan: Nayely will be discharged home with new home health services for wound care and PT. She will follow up with her PCP, surgeon and discharge plan of care. Nayely will transport home via private vehicle with family. Patient/Family Education Needs: Discharge plan, limitations, follow up plan, Ask Me Three Services Needed at Discharge: Home Health Care Services, Physical Therapy
--- NOTE | 2020-02-03 14:51 | CHAPLAIN ---
Nayely was expecting to be discharged today. She was looking forward to getting home. Her has dementia and their two sons and daughters in law have been caring for him.
--- NOTE | 2020-02-07 08:49 | INDS_ITS ---
Date of service: 02/07/20 Time of Service: 08:49 PT Notes Visit Reasons: TAR WITH CS Physical Therapy Inpatient Discharge Summary Date: 02/07/2020 Dates of Service: 01/10/2020 through 02/03/2020 This is a clinical summary of care provided on the duration of dates listed above. No charge was made in the completion of this documentation. Referring Doctor: Dr. Evonne Ruano PT Orders: PT CONSULT: s/p extensive hernia repair/ epidural Precautions: binder when sitting/standing; abdominal drains x 2 Patient Profile/Admitting Diagnosis: Patient 1 day s/p ventral hernia repair. PMHX: Abdominal pain Abnormal computed tomography of abdomen and pelvis Allergic rhinitis Anxiety Cervicalgia Colonic polyp COPD (chronic obstructive pulmonary disease) Depressive disorder Diverticular disease of large intestine Headache History of open sigmoidectomy for diverticular dx Hyperlipidemia Hypertension Hypothyroid Inguinal hernia hx of 3 hernia repairs @ [facility] Insomnia Nonsustained ventricular tachycardia F/U with PCP regularly 12/07/19 Osteoarthritis of left hand Ventral hernia Social History/Home Situation: Patient lives independently with her , who has ongoing health issues. They live in their own home with ramp to enter. Their sons check in on them daily and assist with care for Nayely's . She states that they will be able to assist more when she returns home. Equipment Owned/DME: ramp Subjective: NT. See most recent PLASTER MACHINE OPERATOR notes. Objective: General Observation: NT. See most recent PLASTER MACHINE OPERATOR notes. Mental Status: NT. See most recent PLASTER MACHINE OPERATOR notes. Pain: NT. See most recent PLASTER MACHINE OPERATOR notes. ROM: Right Upper Extremity: WFL Left Upper Extremity: WFL Right Lower Extremity: WFL Left Lower Extremity: WFL Sensation: intact distally Bed Mobility/Transfers: supine-sit: s independent sit-supine: Independent sit-stand: Independent stand-sit: Independent scoot up in bed: Independent Gait: 400 feet use front wheeled walker with full weight bearing with modified independence. 20 feet with standby assist without AD. Balance: Static Sitting: Normal Dynamic Sitting: Normal Static Standing: Fair Dynamic Standing: Fair Assessment: Patient demonstrates significant functional mobility improvements as evidenced by mobility level above and goal status below during this episode of care. Goals: Goals X1 week 1. Supine-Sit : independent MET 2. Sit-Supine: independent MET 3. Sit-Stand : independent MET 4. Stand-Sit : independent MET 5. Bed-Chair : independent with LRD MET 6. Chair-Bed : independent with LRD MET 7. Gait : supervision x 50' with LRD MET DISCHARGE RECOMMENDATIONS: Patient will benefit from home health PT services in order to progress mobility level using least restrictive assistive ambulatory device, assess home safety, identify additional equipment needs, and establish a functional maintenance program that will increase ability of patient to remain at home. TREATMENT CODE/TIME: NC. Thank you for the opportunity to participate in the care of this patient. Lupis Gordon PT, DPT, CLT [facility] [place], [place]
== END 2020-02-03 13:56 | disposition home or self-care (01) | DRG 355 ==
LOC: PDS 11:23 → MS 11:28 → ICU 18:59 → MS 01-31 00:41
PROVIDERS: Surgery; Admitting Provider Surgery; PCP Nurse Practitioner Family; Visit Provider Surgery
PROC: 0WUF0JZ Supplement Abdominal Wall with Synthetic Substitute, Open Approach (ICD-10-PCS; CPT 49565; principal; 2020-01-30 07:30)
DX: K43.9 Ventral hernia without obstruction or gangrene (principal); E03.9 Hypothyroidism, unspecified; I10 Essential (primary) hypertension; K43.2 Incisional hernia without obstruction or gangrene; R50.9 Fever, unspecified; E78.5 Hyperlipidemia, unspecified; J44.9 Chronic obstructive pulmonary disease, unspecified
CPT/HCPCS: 49565; 49568; 36415; 80048; 94640; 97110; 97162; 97530; 99232; 99238; NC; 49560; 85025; 94667; C1781; J0690; J1100; J1644; J2001; J2250; J2310; J2370; J2405; J2704; J3475

== ENCOUNTER → 2020-02-08 15:14 | Outpatient (BNVA) | payer MEDICARE, OTHER, BC, SELFPAY | PROVIDERS: PCP Nurse Practitioner Family; Referring Provider Nurse Practitioner Family; Visit Provider Surgery | DX: Z48.815 Encounter for surgical aftercare following surgery on the digestive system (principal); K57.30 Diverticulosis of large intestine without perforation or abscess without bleeding; K43.9 Ventral hernia without obstruction or gangrene; J44.9 Chronic obstructive pulmonary disease, unspecified; I10 Essential (primary) hypertension ==

== ENCOUNTER → 2020-02-15 09:52 | Outpatient (BNVA) | payer MEDICARE, OTHER, BC, SELFPAY | PROVIDERS: PCP Nurse Practitioner Family; Referring Provider Nurse Practitioner Family; Visit Provider Surgery | DX: Z48.815 Encounter for surgical aftercare following surgery on the digestive system (principal); K43.9 Ventral hernia without obstruction or gangrene; J44.9 Chronic obstructive pulmonary disease, unspecified; I10 Essential (primary) hypertension ==

== ENCOUNTER → 2020-02-22 14:17 | Outpatient (BNVA) | payer MEDICARE, OTHER, BC, SELFPAY | PROVIDERS: PCP Nurse Practitioner Family; Referring Provider Nurse Practitioner Family; Visit Provider Surgery | DX: Z48.815 Encounter for surgical aftercare following surgery on the digestive system (principal) ==

== ENCOUNTER → 2020-03-07 13:48 | Outpatient (BNVA) | payer MEDICARE, OTHER, BC, SELFPAY | PROVIDERS: PCP Nurse Practitioner Family; Referring Provider Nurse Practitioner Family; Visit Provider Surgery | DX: Z48.815 Encounter for surgical aftercare following surgery on the digestive system (principal); K43.9 Ventral hernia without obstruction or gangrene ==

== ENCOUNTER 2020-04-08 07:10 | Emergency (ER) | payer MEDICARE, OTHER, BC, SELFPAY ==
[2020-04-08 07:25] VITALS: BP 168/82; PULSE 99; RESP 20; TEMP 36.6; O2SAT 97
--- NOTE | 2020-04-08 08:12 | W.ED.GENAD ---
Discharge Plan Disposition Patient Disposition: HOME Condition: Stable Discharge Details Clinical Impression: Postoperative seroma, S/P repair of recurrent ventral hernia Primary Care Provider: Doretha Resendiz ED Provider: Anali Ying Home Meds and New Rx's Prescriptions: New cephalexin [Keflex] 500 mg capsule 500 mg PO QID 10 Days Qty: 40 RF: 0 No Action acetaminophen [Tylenol Arthritis Pain] 650 mg tablet extended release 650 mg PO Q12H RF: 0 levothyroxine 75 mcg tablet 75 mcg PO DAILY RF: 0 ramipril 5 mg capsule 5 mg PO DAILY RF: 0 cetirizine [Zyrtec] 10 mg Tablet 10 mg PO DAILY PRNRF: 0 albuterol sulfate [ProAir HFA] 90 mcg/actuation Hfa Aerosol Inhaler 2 puff INHALATION Q6H PRNRF: 0 coenzyme Q10 [CoQ-10] 30 mg Capsule 30 mg PO DAILY RF: 0 diazepam 5 mg Tablet 5 mg PO DAILY PRN (Reason: Anxiety) RF: 0 nabumetone 500 mg Tablet 500 mg PO DAILY RF: 0 docusate sodium [Colace] 100 mg Capsule 100 mg PO BID Qty: 60 RF: 0 Spiriva Respimat 2.5 mcg/actuation Mist 2 puff inhalation DAILY Qty: 30 RF: 0 Discharge Instructions Instructions: Seroma (DC) Additional Instructions: Continue to change the dressing as needed. Take the antibiotics until finished. You have a follow-up appointment with Dr. Ruano in the surgery office on April 12 at 1:30 PM. Return immediately to the emergency department if you develop any worsening or new concerning symptoms if you develop any fever, worsening drainage or abdominal pain. Referrals: Evonne Ruano DO [OSTEOPATHIC DOCTOR] - Discharge Data Discharge Date/Time-TO BE ENTERED AT DEPARTURE: 04/08/20 13:55 Discharge Physician: Anali Ying Medical Decision Making 0815 -- 79-year-old female with a history of COPD, hypertension, hyperlipidemia, open sigmoidectomy, hysterectomy, cholecystectomy, colectomy, appendectomy who is also 2 months status post retro-rectus hernia repair w/ permacol biologic mesh for recurrent ventral hernia presents for white and yellow drainage from the incision site this morning. Patient appears comfortable and nontoxic. The incision appears to be healing well other than a small dark crust at the distal aspect of the wound with a 3 mm opening with yellow drainage noted. There is no surrounding cellulitis or fluctuance. Consider possible abscess. Will obtain screening labs and CT abdomen and pelvis. 1115 -- Had significant difficulty with obtaining access. Two nurses tried at bedside with peripheral access and unable. I tried twice with ultrasound and was able to obtain IV placement but it appears that IV infiltrated with contrast at radiology and CT not done. Called anesthesia to place a midline IV. Patient appears anxious due to repeated peripheral access attempts and a dose of Toradol IM and Ativan p.o. given. Labs reviewed and unremarkable. Normal white blood cell count and lactate. 1320 -- CT abdomen and pelvis notes a large postoperative seroma but no definite abscess. Imaging reviewed with Dr. Colin who agrees that she does not see an abscess but recommend treatment with Keflex prophylactically. Patient given a dose here as well to go and prescription. Patient has a follow-up appointment with Dr. Ruano on 04/12. She was given dressings for home. Usual and customary return precautions given prior to discharge. Medical Records Medical records reviewed: Yes I reviewed the patient's medical records. Imaging Data Radiologic Study: Radiologist's impression: CT Abdomen And Pelvis With Contrast Exam date and time: 04/08/2020 10:13 AM Age: 79 years old Clinical indication: Other: Leakage from wound site, S/P hernia repair jan 2020 TECHNIQUE: Imaging protocol: Computed tomography of the abdomen and pelvis with intravenous contrast. COMPARISON: CT ABDOMEN PELVIS W 12/08/2019 7:54 AM FINDINGS: Limitations: None. Lungs: Right lower lobe atelectasis. Liver: Normal. Gallbladder and bile ducts: Surgical clips are present in the right upper quadrant, consistent with previous cholecystectomy. Pancreas: Normal. Spleen: Normal. Adrenal glands: Normal. Kidneys and ureters: Normal. Stomach and bowel: Multiple distal colonic anastomoses. Scattered colonic diverticulosis. There is fecalization within the small bowel stream. The small bowel is otherwise normal. Very small hiatal hernia. Otherwise, normal stomach. Appendix: No evidence of appendicitis. Vasculature: Mild atherosclerosis of the abdominal aorta, pelvic arteries and mesenteric vessels. Vessels have normal caliber and there are no venous or arterial occlusions. Lymph nodes: None enlarged or otherwise suspicious. Urinary bladder: Normal. Reproductive: There has been prior hysterectomy. Normal left adnexa. The right is not convincingly identified. Bones/joints: No acute fracture or suspicious osseous lesion. Soft tissues: Anterior abdominal wall surgical change. Incision is nearly completely coapted. There is a small defect in the skin through which fluid penetrates (also where there is overlying bandaging close) and communicates to a larger, deeper fluid collection which has incompletely formed enhancing margins and extends both medially and laterally in the extra-abdominal fat. There is a wide defect in the midline of the anterior abdominal wall through which the fluid communicates to a collection that layers upon what appears to be hernia mesh and extends up to 12 cm cranial to caudad and 9 cm transverse. There is similar enhancement along the margins of this fluid collection. There is some infiltration of the fat deep to the collection and some inward displacement of the peritoneum but no accumulation with the peritoneal cavity. IMPRESSION: Large postoperative seroma insinuated in the extra-abdominal fat and within the anterior abdominal wall layering upon the hernia mesh. This is probably an inflammatory fluid collection but findings of an abscess are not definite and although there are multiple communications, there are no true loculations. Deep to the mesh there is some inflammatory change but no intraperitoneal fluid. The surgical wound appears coapted except at a single focus with there is some bandaging and where spontaneous discharge would be expected. Lab Data Lab results reviewed: Yes I reviewed the patient's lab results. Labs: 04/08/20 09:10 Blood Blood Culture - Pending 04/08/20 08:55 Abdomen Skin Culture - Pending Laboratory Tests Range/Units 04/08/20 04/08/20 04/08/20 09:10 09:10 09:10 WBC (4.4-10.8) 10^3/uL 7.99 RBC (3.93-5.22) 10^6/uL 4.71 Hgb (11.2-15.7) g/dL 12.1 Hct (36.0-46.0) % 38.5 MCV (80-95) fL 81.7 MCH (27.0-33.0) pg 25.7 L MCHC (32.0-36.0) % 31.4 L RDW (11.7-14.6) % 14.8 H Plt Count (130-400) 10^3/uL 331 MPV (8.0-11.0) fL 8.1 Immature Gran % 0.4 Neutrophils % 80.7 Lymphocytes % 11.3 Monocytes % 5.1 Eosinophils % 2.0 Basophils % 0.5 Nucleated RBC % % 0 Absolute Neutrophils (1.2-6.7) 10^3/uL 6.45 Absolute Lymphocytes (1.2-3.4) 10^3/uL 0.90 L Absolute Monocytes (0.1-0.8) 10^3/uL 0.41 Absolute Eosinophils (0.0-0.7) 10^3/uL 0.16 Absolute Basophils (0.0-0.2) 10^3/uL 0.04 VBG Lactate (0.6-1.4) mmol/L 0.7 Sodium (136-145) mmol/L 140 Potassium (3.5-5.1) mmol/L 4.2 Chloride (98-107) mmol/L 105 Carbon Dioxide (21.0-32.0) mmol/L 25.3 Anion Gap (3-11) mmol/L 9.7 BUN (7-18) mg/dL 13 Creatinine (0.55-1.02) mg/dL 0.76 Estimated GFR/1.73 m2 (mL/min/1.73m2) >= 60.00 Glucose (74-106) mg/dL 103 Calcium (8.5-10.1) mg/dL 8.8 Total Bilirubin (0.2-1.0) mg/dL 0.4 AST (15-37) U/L 14 L ALT (14-59) U/L 14 Alkaline Phosphatase (46-116) U/L 69 Total Protein (6.4-8.2) g/dL 7.2 Albumin (3.4-5.0) g/dL 3.2 L Lipase (73-393) U/L 66 HPI General Mode of arrival: ambulatory. Date/Time Provider Initiated Documentation: 04/08/20 07:33. Limitations to Documentation: no limitations. Information obtained by: patient. HPI Narrative: Patient is a 79-year-old female with a history of COPD, hypertension, hyperlipidemia who is just over 2 months status post retro-rectus hernia repair w/ permacol biologic mesh for recurrent ventral hernia who presents for white and yellow drainage from her incision site that she noted upon awakening this morning. She states her pajamas and undergarments were drenched with liquid. Patient states she sneezed once yesterday but otherwise denies any known injury or heavy lifting. Patient states she has had intermittent sharp pains around her incision since the surgery but denies any worsening pain today. She states she has been eating well and denies any fever, nausea, vomiting, diarrhea or urinary symptoms. Related Data Home Medications Medication Instructions Recorded Confirmed albuterol sulfate [ProAir HFA] 2 puff INHALATION Q6H PRN 02/14/19 04/08/20 cetirizine [Zyrtec] 10 mg PO DAILY PRN 02/14/19 04/08/20 coenzyme Q10 [CoQ-10] 30 mg PO DAILY 02/14/19 04/08/20 diazepam 5 mg PO DAILY PRN 02/14/19 04/08/20 nabumetone 500 mg PO DAILY 02/14/19 04/08/20 acetaminophen 650 mg 650 mg PO Q12H 08/26/19 04/08/20 tablet,extended release levothyroxine 75 mcg tablet 75 mcg PO DAILY 12/09/19 04/08/20 ramipril 5 mg capsule 5 mg PO DAILY 12/09/19 04/08/20 docusate sodium [Colace] 100 mg PO BID #60 cap 02/03/20 04/08/20 tiotropium bromide [Spiriva 2 puff INHALATION DAILY #30 g 02/03/20 04/08/20 Respimat] cephalexin [Keflex] 500 mg PO QID 10 Days #40 cap 04/08/20 Previous Rx's Medication Instructions Recorded docusate sodium [Colace] 100 mg PO BID #60 cap 02/03/20 tiotropium bromide [Spiriva 2 puff INHALATION DAILY #30 g 02/03/20 Respimat] cephalexin [Keflex] 500 mg PO QID 10 Days #40 cap 04/08/20 Allergies Allergy/AdvReac Type Severity Reaction Status Date / Time Sulfa (Sulfonamide Allergy Intermediate HIVES,HEADA Verified 04/08/20 07:28 Antibiotics) LISA sulfamethoxazole Allergy Intermediate HIVES, Verified 04/08/20 07:28 [From Bactrim] HEADACHE trimethoprim [From Bactrim] Allergy Intermediate HIVES, Verified 04/08/20 07:28 HEADACHE lisinopril AdvReac Severe HEADACES Verified 04/08/20 07:28 General Stated Complaint: GenMedical VITOR: 3 Review of Systems All systems reviewed & are unremarkable except as noted in HPI and below Constitutional Constitutional: Reports as per HPI, Denies chills and Denies fever(s) Eyes Eyes: Denies blurry vision ENT Ears, Nose, Mouth, and Throat: Denies dizziness, Denies sore throat and Denies throat swelling Cardiovascular Cardiovascular: Denies chest pain and Denies dyspnea Respiratory Respiratory: Denies cough and Denies dyspnea Gastrointestinal Gastrointestinal: Denies abdominal pain, Denies diarrhea and Denies vomiting Genitourinary Genitourinary: Denies hematuria and Denies dysuria Musculoskeletal Musculoskeletal: Denies back pain and Denies numbness Integumentary/Breasts Skin/Breast: Denies lesions, Denies rash and Reports wounds (White and yellow drainage from incisional abdominal wound.) Neurologic Neurologic: Denies dizziness, Denies localized weakness and Denies numbness Allergic/Immunologic Allergic/Immunologic: Denies throat swelling [facility] Medical History (Updated 04/08/20 @ 13:28 by Anali Ying DO) Abdominal pain Abnormal computed tomography of abdomen and pelvis Allergic rhinitis Anxiety Cervicalgia Colonic polyp COPD (chronic obstructive pulmonary disease) pt. questions this Depressive disorder Diverticular disease of large intestine Headache History of open sigmoidectomy for diverticular dx Hyperlipidemia Hypertension Hypothyroid Inguinal hernia hx of 3 hernia repairs @ [facility] Insomnia Nonsustained ventricular tachycardia F/U with PCP regularly 12/07/19 Osteoarthritis of left hand Ventral hernia Surgical History (Updated 04/08/20 @ 13:28 by Anali Ying DO) H/O detached retina repair @ [facility] H/O ventral hernia repair (~01/30/20) Dr. Ruano H/O: hysterectomy History of cholecystectomy History of colectomy (~07/12/10) [facility] History of colonoscopy 2000 3 year recall 2003 5 year recall ?? tubular adenoma & hyperplastic polyps [facility] 12/10/2010 History of hernia repair 1993- [facility] 10/28/2012 [facility] September 08, 2013 [facility] Hx of appendectomy Social History Smoking/Tobacco Use Status: Never Smoking risk assessment performed?: Yes Alcohol Intake: current Alcohol Intake frequency: holidays/special occasions only Drug use: Never Substance use type: does not use Current gender identity: female Do you feel safe at home: Yes Do you feel safe in your relationship?: Yes Exam Const General: cooperative, healthy appearing and no acute distress HENMT Head: normal to inspection Face and sinus: normal facial exam Eyes General: appearance normal, both eyes and all related structures EOM: EOM intact bilaterally Neck Neck: normal visual inspection and No submandibular swelling Lymphatic: no lymphadenopathy noted Chest Chest: normal inspection of the chest and no tenderness Resp Effort & Inspection: normal respiratory effort and able to speak in complete sentences Auscultation: clear to auscultation bilaterally Cardio Rate: regular rate Rhythm: regular rhythm GI Inspection: scar Palpation: soft, not firm, not rigid and nontender Abdomen image: 1. Incisional scar, well healing other than wound with dehiscence on lower aspect. 2. Black to dark maroon crust lateral to incisional scar w/ a 3 mm opening on medial aspect within the incisional scar that is draining white and yellow pus. There is no surrounding erythema, induration, edema or bleeding. Skin General skin exam: no rashes or lesions noted Neuro General: patient alert, patient awake and patient oriented x3 Cognition: normal cognition Speech: speech normal Motor: muscle tone normal throughout Sensory Exam: no sensory deficits noted Extrem General: normal to inspection, full ROM, capillary refill normal, no calf tenderness bilaterally and no edema Psych Appearance: grossly normal Mental Status: mental status grossly normal Speech and Movement: speech and movement normal Affect: normal affect Course Vital Signs Vital signs: Vital Signs Temperature 97.9 F 04/08/20 07:25 Pulse 99 H 04/08/20 07:25 Respiratory Rate 20 04/08/20 07:25 Blood Pressure 168/82 H 04/08/20 07:25 Pulse Oximetry 97 04/08/20 07:25 Temperature 97.9 F 04/08/20 07:25 Temperature Source Temporal Artery Scan 04/08/20 07:25 Pulse 99 H 04/08/20 07:25 Respiratory Rate 20 04/08/20 07:25 Blood Pressure 168/82 H 04/08/20 07:25 Blood Pressure Position Sitting 04/08/20 07:25 Pulse Oximetry 97 04/08/20 07:25 Oxygen Delivery Method Room Air 04/08/20 07:25 Oxygen Flow Rate 0 04/08/20 07:25 Pain Level 0 04/08/20 07:25
--- NOTE | 2020-04-08 08:45 | DI.CT_ITS ---
EXAM: CT ABDOMEN PELVIS W CLINICAL HISTORY: leakage from wound site,s/p hernia repair Jan 2020 TECHNIQUE: Imaging Protocol: Axial computed tomography images with coronal and sagittal reformatted images were created and reviewed CONTRAST MATERIAL: Intravenous: Omnipaque 350 Contrast volume:80 mL Oral: No COMPARISON: CT CT ABDOMEN PELVIS W from 12/08/2019 FINDINGS: ABDOMEN: Lung Bases: Normal where visualized. Liver: Normal density. No measurable mass. Portal, Superior Mesenteric, and Splenic Veins: Unremarkable. Gallbladder and Biliary Tract: Status post cholecystectomy. No biliary ductal dilatation. Pancreas: Normal density, no abnormal calcifications or inflammatory process. Spleen: Normal. Adrenals: No masses seen. Kidneys: Normal size, contour and axis. No radiodense stones or obstructive uropathy. No masses seen. Abdominal Aorta: Abdominal portion non-dilated. Atherosclerosis. Bowel: No obstruction or bowel wall thickening. Appendix is unremarkable. Colonic diverticulosis but no evidence of acute diverticulitis. Prior bowel surgery involving the rectosigmoid colon Peritoneal Cavity: No ascites, collection or mesenteric inflammatory response. Lymph Nodes: Within normal limits. Bones: Degenerative changes. Soft Tissues: There is a large fluid collection seen in the anterior abdominal wall which appears to layer upon the mesh from the patient's anterior abdominal wall hernia surgery. The collection extend s to the skin surface at the surgical insertion site. The collection measures at least 12 cm cranioc audad and 9 cm transverse. Portions of the collection have enhancing margins suspicious for developi ng abscess. There is stranding seen in the surrounding soft tissue suggesting inflammatory or infect ious process. There does not appear to be communication with the peritoneal cavity. PELVIS: Bladder: Symmetric distention, no gross wall thickening. Reproductive Organs: Status post hysterectomy. Lymph Nodes: Within normal limits. Bones: Degenerative changes. IMPRESSION: Large postoperative fluid collection within the anterior abdominal wall which communicates with the s kin surface at the incision site. It measures at least 12 cm x 9 cm. There does not appear to be co mmunication with the peritoneal cavity. Portions of the collection shown enhancing wall and a develo ping abscess is suspected. Inflammatory changes around the fluid suggested inflammatory or infectiou s process. RADIATION DOSE DELIVERED: 688.37mGy.cm Total DLP DATA REPOSITORY: All CT scans at this facility are submitted to the National Radiology Data Registry (NRDR) Dose Index Registry (DIR) with the [employer] [place] [employer] (A[employer]). RADIATION OPTIMIZATION: All CT scans at this facility use at least one of these dose optimization te chniques: automated exposure control; mA and/or kV adjustment per patient size (includes targeted exa ms where dose is matched to clinical indication); or iterative reconstruction.
[2020-04-08 09:18] LABS: Lactate 0.7 mmol/L (0.6-1.4)
[2020-04-08 09:21] LABS: Abs Immature Grans 0.03 10^3/uL (0.0-0.06); Absolute Basophil Count 0.04 10^3/uL (0.0-0.2); Absolute Eosinophil Count 0.16 10^3/uL (0.0-0.7); Absolute Monocyte Count 0.41 10^3/uL (0.1-0.8); Absolute Neutrophil Count 6.45 10^3/uL (1.2-6.7); Basophils % 0.5; HCT 38.5 % (36.0-46.0); HGB 12.1 g/dL (11.2-15.7); Immature Grans % 0.4; Lymphocytes % 11.3; MCH 25.7 pg (27.0-33.0); MCHC 31.4 % (32.0-36.0); MCV 81.7 fL (80-95); MPV 8.1 fL (8.0-11.0); Monocytes % 5.1; Neutrophils % 80.7; Nucleated RBC 0 %; Platelet Count 331 10^3/uL (130-400); RBC 4.71 10^6/uL (3.93-5.22); RDW 14.8 % (11.7-14.6); RDW-SD 44.2 fL; WBC 7.99 10^3/uL (4.4-10.8)
[2020-04-08 09:29] VITALS: RESP 18
[2020-04-08 09:34] LABS: ALT 14 U/L (14-59); AST 14 U/L (15-37); Albumin 3.2 g/dL (3.4-5.0); Alkaline Phosphatase 69 U/L (46-116); Anion Gap 9.7 mmol/L (3-11); BUN 13 mg/dL (7-18); Bilirubin, Total 0.4 mg/dL (0.2-1.0); CO2 25.3 mmol/L (21.0-32.0); CREATININE 0.76 mg/dL (0.55-1.02); Calcium 8.8 mg/dL (8.5-10.1); Chloride 105 mmol/L (98-107); Glucose 103 mg/dL (74-106); Lipase 66 U/L (73-393); Potassium 4.2 mmol/L (3.5-5.1); Sodium 140 mmol/L (136-145); Total Protein 7.2 g/dL (6.4-8.2)
[2020-04-08] MEDS: Normal Saline 500 ML IV (10:15)
[2020-04-08] MEDS: Ketorolac 60 MG/2 ML VIAL IM (11:06)
[2020-04-08] MEDS: LORazepam 0.5 MG TAB PO (11:06)
--- NOTE | 2020-04-08 11:56 | PDOC.ANES ---
Date of service: 04/08/20 Time of Service: 11:56 Anesthesia Note Report Anesthesia Note: Vascular Access Note: Requested by the ED to obtain vascular access for CT scan with contrast. The ED has tried multiple times, including via ultrasound. with hat, mask on a tourniquet was applied to the right arm, upper arm was prepped with chlorhexidine. sterile gloves and sterile probe cover used, and under ultrasound the right basilic was identified and free of clot, a 25 ga needle was advanced and 1 mL of 1% lidocaine was given. an 18 ga, 10 cm powerglide pro was attempted to be placed, but on needle insertion to the vein and deployment of the wire, the vein was noted to be extrasavating of blood and hematoma under ultrasound was noted along with apparent vasospasm. This was repeated twice more (without lidocaine) on the cephalic vein, both time with wire threading freely into the vein, but on deplyment of the catheter hematoma noted. Attempts at further right arm midline placement on hold (left arm had likely contrast infiltration and was visibly swollen so no attempts made there). 18 ga PIV placement was then successful on the ventral right wrist. This was secured with statlock, tegaderm, and tape. after securement additional flushing was done with no signs of infiltration and good easy flush. RN was updated on attempts and successes.
--- NOTE | 2020-04-08 11:59 | NUR.NOTE ---
Nursing Note: Extensive difficulty obtaining intravenous access. Multiple times with peripheral access with no success, attempts by MD with ultrasound 3x with success in L upper arm. Site was tender at insertion site but flushed without difficulty. Before leaving for CT, this scribe had MD assess site as well which she deemed appropriate. During CT scan injection of contrast began to infiltrate the L upper arm, pt c/o pain. Infusion was stopped. Pt returned to ER, assessed L upper arm which was cool to touch and slightly swollen. IV was removed and warm pack applied. DI reports 85 cc infusion. Anesthesia was consulted to insert IV. After 4 attempts he was successful with an 18 in the R wrist. Pt to CT at this time.
[2020-04-08] MEDS: Omnipaque 350 MG/ML 100 ML BTL IJ (12:25)
[2020-04-08] MEDS: Normal Saline Flush 10 ML SYR IVP (12:26)
[2020-04-08] MEDS: Normal Saline - Diluent 50 ML VIAL IV (12:34)
--- NOTE | 2020-04-08 12:53 | DI.VRAD_ITS ---
PROCEDURE INFORMATION: Exam: CT Abdomen And Pelvis With Contrast Exam date and time: 04/08/2020 10:13 AM Age: 79 years old Clinical indication: Other: Leakage from wound site, S/P hernia repair jan 2020 TECHNIQUE: Imaging protocol: Computed tomography of the abdomen and pelvis with intravenous contrast. COMPARISON: CT ABDOMEN PELVIS W 12/08/2019 7:54 AM FINDINGS: Limitations: None. Lungs: Right lower lobe atelectasis. Liver: Normal. Gallbladder and bile ducts: Surgical clips are present in the right upper quadrant, consistent with previous cholecystectomy. Pancreas: Normal. Spleen: Normal. Adrenal glands: Normal. Kidneys and ureters: Normal. Stomach and bowel: Multiple distal colonic anastomoses. Scattered colonic diverticulosis. There is fecalization within the small bowel stream. The small bowel is otherwise normal. Very small hiatal hernia. Otherwise, normal stomach. Appendix: No evidence of appendicitis. Vasculature: Mild atherosclerosis of the abdominal aorta, pelvic arteries and mesenteric vessels. Vessels have normal caliber and there are no venous or arterial occlusions. Lymph nodes: None enlarged or otherwise suspicious. Urinary bladder: Normal. Reproductive: There has been prior hysterectomy. Normal left adnexa. The right is not convincingly identified. Bones/joints: No acute fracture or suspicious osseous lesion. Soft tissues: Anterior abdominal wall surgical change. Incision is nearly completely coapted. There is a small defect in the skin through which fluid penetrates (also where there is overlying bandaging close) and communicates to a larger, deeper fluid collection which has incompletely formed enhancing margins and extends both medially and laterally in the extra-abdominal fat. There is a wide defect in the midline of the anterior abdominal wall through which the fluid communicates to a collection that layers upon what appears to be hernia mesh and extends up to 12 cm cranial to caudad and 9 cm transverse. There is similar enhancement along the margins of this fluid collection. There is some infiltration of the fat deep to the collection and some inward displacement of the peritoneum but no accumulation with the peritoneal cavity. IMPRESSION: Large postoperative seroma insinuated in the extra-abdominal fat and within the anterior abdominal wall layering upon the hernia mesh. This is probably an inflammatory fluid collection but findings of an abscess are not definite and although there are multiple communications, there are no true loculations. Deep to the mesh there is some inflammatory change but no intraperitoneal fluid. The surgical wound appears coapted except at a single focus with there is some bandaging and where spontaneous discharge would be expected. Dictated and Authenticated by: Peter Monroe MD. Ordering:MARK Briones MD
[2020-04-08] MEDS: Cephalexin 500 MG CAP PO (13:51)
[2020-04-08 13:52] VITALS: BP 168/82; PULSE 99; RESP 18; TEMP 36.6; O2SAT 97
[2020-04-08] MEDS: Cephalexin 500 MG CAP, 4 CAPS/BTL PO (13:52)
== END 2020-04-08 13:55 | disposition home or self-care (01) ==
PROVIDERS: Emergency Provider Physician Assistant; PCP Nurse Practitioner Family
DX: L76.34 Postprocedural seroma of skin and subcutaneous tissue following other procedure (principal); Y83.1 Surgical operation with implant of artificial internal device as the cause of abnormal reaction of the patient, or of later complication, without mention of misadventure at the time of the procedure; I10 Essential (primary) hypertension; J44.9 Chronic obstructive pulmonary disease, unspecified
CPT/HCPCS: 36415; 80053; 83690; 87040; 96360; 96372; 99285; 74177; 83605; 85025; 86140; 87070; 99284; J1885; J3490

== ENCOUNTER → 2020-04-12 13:18 | Outpatient (BNVA) | payer MEDICARE, OTHER, BC, SELFPAY | PROVIDERS: PCP Nurse Practitioner Family; Visit Provider Surgery | DX: Z48.815 Encounter for surgical aftercare following surgery on the digestive system (principal); L76.34 Postprocedural seroma of skin and subcutaneous tissue following other procedure; Z87.19 Personal history of other diseases of the digestive system; R93.5 Abnormal findings on diagnostic imaging of other abdominal regions, including retroperitoneum ==

== ENCOUNTER 2020-04-17 07:20 | Day surgery (SDC) | payer MEDICARE, OTHER, BC, SELFPAY ==
--- NOTE | 2020-04-17 06:30 | DI.US_ITS ---
EXAM: US ABDOMEN LIMITED CLINICAL HISTORY: POSTOP SEROMA,S/P VENTRAL HERNIA REPAIR,ASPIRATION OF FLUID TECHNIQUE: Ultrasound performed using standard protocol. COMPARISON: CT CT ABDOMEN PELVIS W from 04/08/[address] ABDOMEN PELVIS W from 04/08/2020 FINDINGS: Ultrasound was provided for Dr. Ruano for guidance with aspiration of anterior abdominal wall sero ma. Please see procedure note for details. IMPRESSION: DATA REPOSITORY:
[2020-04-17 07:20] VITALS: BP 133/68; PULSE 90; RESP 18; TEMP 36.3; O2SAT 99
--- NOTE | 2020-04-17 08:35 | W.PM.DSUDISC ---
Discharge Plan Disposition Patient Disposition: HOME Condition: Good Discharge Details Reason For Visit: FOLLOWUP Attending Provider: Evonne Ruano Primary Care Provider: Doretha Resendiz Home Meds and New Rx's Prescriptions: No Action acetaminophen [Tylenol Arthritis Pain] 650 mg tablet extended release 650 mg PO Q12H RF: 0 levothyroxine 75 mcg tablet 75 mcg PO DAILY RF: 0 ramipril 5 mg capsule 5 mg PO DAILY RF: 0 cetirizine [Zyrtec] 10 mg Tablet 10 mg PO DAILY PRNRF: 0 albuterol sulfate [ProAir HFA] 90 mcg/actuation Hfa Aerosol Inhaler 2 puff INHALATION Q6H PRNRF: 0 coenzyme Q10 [CoQ-10] 30 mg Capsule 30 mg PO DAILY RF: 0 diazepam 5 mg Tablet 5 mg PO DAILY PRN (Reason: Anxiety) RF: 0 Spiriva Respimat 2.5 mcg/actuation Mist 2 puff inhalation DAILY Qty: 30 RF: 0 cephalexin [Keflex] 500 mg capsule 500 mg PO QID 10 Days Qty: 40 RF: 0 Discharge Instructions Additional Instructions: -ice and tylenol today. -no lifting over 10#'s -finish antibiotics -yogurt daily -rest for the next 24hrs -may have some drainage for the next 48hrs -remove packing in the am and wash w/ soap and water -on thursday, just put a dry dressing over wound. Do not have to pack. -F/u Dr. Ruano on 04/19 at 11am. Remove Dressings/Wound Care:: 24 hours Shower/Bathe:: 24 hours Activity:: see above Diet:: As Tolerated Discharge Orders Discharge Orders: Discharge Order (Routine); Ordered 04/17/20 Ordered By: Evonne Ruano DS: Diagnosis Discharge Diagnosis (1) Postoperative hematoma: Status: Acute (2) Postoperative seroma: Status: Acute (3) S/P repair of recurrent ventral hernia: Status: Acute
[2020-04-17 08:37] VITALS: BP 123/64; PULSE 80; RESP 16; O2SAT 97
--- NOTE | 2020-04-17 09:28 | ROE_ITS ---
Date of service: 04/17/20 Time of Service: 09:28 Operative Note Operative Note DATE OF PROCEDURE: 04/17/20 PRE-OP DIAGNOSIS: PostOp hematoma POST-OP DIAGNOSIS: same PROCEDURE: Ultrasound-guided aspiration of hematoma SURGEON: Evonne Ruano GLASS TECHNICIAN/INSTALLER: Shahram Mcdowell ANESTHESIA: local ESTIMATED BLOOD LOSS: 50 PATHOLOGY: none sent COMPLICATIONS: None Patient was transported to: same day Procedure Description: Ultrasound-guided aspiration of hematoma Patient had a complex hernia repair about 2 months ago. She has noted a slight bulge in the left side of her incision. Her left drain never drained very much. I think it was clotted off. On Thursday she noticed that she was having a lot of drainage. She went to the ER and a CT was done which showed a fluid collection. I aspirated some of this in the office on Thursday. But I was not able to get the entirety of the fluid collection. She is here today for ultrasound guidance to remove this. And again it was old liquefied hematoma in the office. The ER did started on antibiotics and she should finish these. Informed consent is obtained explaining risks and benefits of the procedure including but not limite d to Infection and pain. The area was localized by ultrasound. It was prepped and draped in the usual sterile fashion using a Betadine scrub solution. 20 cc is used for local anesthetization of 1% lidocaine plain. Ultrasound is used to aid in localizing the pockets and aspirating. Using a 18g needle, I Aspirated about 50 cc of old liquefied hematoma. About 90% of the fluid collection is resolved on US today. The little tract is irrigated and packed it- is about 2 x 2 mm and 1 inch in depth. She can remove the packing in the morning and shower. And she will follow-up in clinic with me on . She should finish the antibiotics. She may be sore for about 24 hours. She will probably have continued drainage for the next 48 to 72 hours and then it should resolve. And if she has any fever chills redness increasing drainage or severe pain to go to the ER.
== END 2020-04-17 09:22 | disposition home or self-care (01) ==
PROVIDERS: PCP Nurse Practitioner Family; Visit Provider Surgery
DX: L76.32 Postprocedural hematoma of skin and subcutaneous tissue following other procedure (principal); Y83.8 Other surgical procedures as the cause of abnormal reaction of the patient, or of later complication, without mention of misadventure at the time of the procedure
CPT/HCPCS: 10160; 76942; 76705

== ENCOUNTER → 2020-04-19 10:48 | Outpatient (BNVA) | payer MEDICARE, OTHER, BC, SELFPAY | PROVIDERS: PCP Nurse Practitioner Family; Referring Provider Nurse Practitioner Family; Visit Provider Surgery | DX: L76.34 Postprocedural seroma of skin and subcutaneous tissue following other procedure (principal); Z98.890 Other specified postprocedural states; Z87.19 Personal history of other diseases of the digestive system ==

== ENCOUNTER 2020-04-19 21:54 | Outpatient (CLI) | payer MEDICARE, OTHER, BC, SELFPAY ==
--- NOTE | 2020-04-19 11:45 | DI.US_ITS ---
EXAM: US SOFT TISS ABD WALL/LOW BACK CLINICAL HISTORY: postop seroma/hematoma, ?infection, s/p repair ventral hernia. TECHNIQUE: Ultrasound of there of concern on the anterior abdominal wall was performed. COMPARISON: Prior CT scans reviewed, most recent being 04/08/2020 FINDINGS: There is a deep subcutaneous partially solid partially cystic abnormality which measures at least 7.3 centimeters wide by 6.4 centimeters cephalocaudal by 1.9 centimeter at AP. This has the appearance of hematoma and/or abscess. One point there appears to be a channel to the skin possibly related to recent surgical intervention. IMPRESSION: Deep subcutaneous abscess versus hematoma or combination thereof, with approximate measurements as ab ove. DATA REPOSITORY:
== END 2020-04-19 22:14 ==
PROVIDERS: PCP Nurse Practitioner Family; Visit Provider Surgery
DX: M79.89 Other specified soft tissue disorders (principal); Z98.890 Other specified postprocedural states
CPT/HCPCS: 76705

== ENCOUNTER 2020-04-20 07:32 | Inpatient (IN) | payer MEDICARE, OTHER, BC, SELFPAY ==
[2020-04-20] VITALS (10 sets, daily range): BP systolic 108–165; BP diastolic 57–85; PULSE 63–85; RESP 16–23; TEMP 34.8–36.3; O2SAT 94–99
--- NOTE | 2020-04-20 07:00 | DI.CT_ITS ---
EXAM: CT ABDOMEN PELVIS W CLINICAL HISTORY: fluid collection hematoma vs abscess. TECHNIQUE: Imaging Protocol: Axial computed tomography images with coronal and sagittal reformatted images were created and reviewed CONTRAST MATERIAL: Intravenous: Omnipaque 100cc Oral: None COMPARISON: CT CT ABDOMEN PELVIS W from 04/08/2020 FINDINGS: VISUALIZED LUNG BASES: Mild benign-appearing increased markings right lung base. No pleural effusion s.. ABDOMEN: ANTERIOR ABDOMINAL WALL: Again noted is the previously described large abnormal fluid collection in t he anterior abdominal wall and extending down to the mesh and exhibiting a tract to the skin surface in the midline, similar to the previous study. This has not decreased nor significantly increased in size. Maximum with measurement is approximately 11 centimetres. In the cephalocaudal dimension thi s multi compartment collection extends over a cephalocaudal length of approximately 9-10 cm. There does not appear to be a distinct intraperitoneal collection posterior to the mesh. There are a djacent small bowel loops but these do not appear adhered nor obstructed to this inflammatory process . Metallic density noted in the in the deep subcutaneous fat over the right anterior abdominal wall, un changed, and unrelated to the above described findings. There is no associated fluid collection at t his level. LIVER: There are no obvious focal hepatic lesions evident . GALLBLADDER/BILIARY: Gallbladder is again noted be surgically absent. CBD is not dilated. PANCREAS: No evidence of pancreatic mass nor dilatation of the pancreatic duct. SPLEEN: Spleen is not enlarged. No obvious intrasplenic lesions. Splenic and portal veins are paten t. ADRENALS: There are no significant adrenal masses. KIDNEYS:No cysts evident. No solid renal masses. No calculi nor hydronephrosis.. ABDOMINAL AORTA: Abdominal aorta is not enlarged and there is no [id number] adenopat hy. PELVIS: GI: Again noted is evidence of partial sigmoid resection.No evidence of inflammatory process at this level nor elsewhere in the pelvis. No free fluid in the pelvis. LYMPH NODES: There is no intrapelvic nor inguinal adenopathy. REPRODUCTIVE: The uterus is surgically absent. There are no abnormal adnexal masses. URINARY BLADDER: No calculi nor obvious masses evident OSSEOUS: No significant osseous lesions. IMPRESSION: 1. Anterior abdominal wall collection as described above, exhibiting very little if any significant c hange compared to the prior study of 04/08/2020. There is again noted a tract to the skin at the low er aspect of this collection and communication with the mesh area but without a distinct collection w ithin the peritoneal cavity itself nor obvious adherence of adjacent non-obstructing small bowel loop s. 2. Deep right subcutaneous metallic density again noted, independent from the above described finding and unchanged from the prior study. No associated fluid collection at this level. 3. Gallbladder is again noted be surgically absent. The biliary tree is not dilated. 4. Uterus is again noted be surgically absent. There is also evidence of prior sigmoid resection wit hout evidence of abnormality at this level at this time. There is no free fluid in the pelvis. RADIATION DOSE DELIVERED: 740.76mGy.cm Total DLP DATA REPOSITORY: All CT scans at this facility are submitted to the National Radiology Data Registry (NRDR) Dose Index Registry (DIR) with the [employer] (ACR). RADIATION OPTIMIZATION: All CT scans at this facility use at least one of these dose optimization te chniques: automated exposure control; mA and/or kV adjustment per patient size (includes targeted exa ms where dose is matched to clinical indication); or iterative reconstruction.
[2020-04-20] MEDS: Normal Saline Flush 10 ML SYR IVP ×3 (08:34→18:27)
[2020-04-20] MEDS: Breeza Beverage 473 ML BTL PO ×2 (08:39→08:40)
[2020-04-20] MEDS: Omnipaque 350 MG/ML 50 ML BTL IJ (08:39)
[2020-04-20 09:00] LABS: Abs Immature Grans 0.02 10^3/uL (0.0-0.06); Absolute Basophil Count 0.07 10^3/uL (0.0-0.2); Absolute Eosinophil Count 0.23 10^3/uL (0.0-0.7); Absolute Monocyte Count 0.36 10^3/uL (0.1-0.8); Eosinophils % 3.4; HCT 40.1 % (36.0-46.0); HGB 12.5 g/dL (11.2-15.7); Immature Grans % 0.3; Lymphocytes % 11.8; MCH 25.6 pg (27.0-33.0); MCHC 31.2 % (32.0-36.0); MPV 8.8 fL (8.0-11.0); Monocytes % 5.3; Neutrophils % 78.2; Nucleated RBC 0 %; Platelet Count 268 10^3/uL (130-400); RBC 4.89 10^6/uL (3.93-5.22); RDW 15.7 % (11.7-14.6); RDW-SD 46.9 fL; WBC 6.78 10^3/uL (4.4-10.8)
[2020-04-20 09:11] LABS: INR 1.1 (0.9-1.1); Prothrombin Time 10.9 sec (9.3-11.0)
[2020-04-20 09:16] LABS: ALT 13 U/L (14-59); AST 11 U/L (15-37); Albumin 3.4 g/dL (3.4-5.0); Alkaline Phosphatase 69 U/L (46-116); Anion Gap 7.3 mmol/L (3-11); BUN 11 mg/dL (7-18); Bilirubin, Total 0.5 mg/dL (0.2-1.0); C-Reactive Protein 1.34 mg/dL (0.0-0.3); CO2 26.7 mmol/L (21.0-32.0); CREATININE 0.7 mg/dL (0.55-1.02); Calcium 8.9 mg/dL (8.5-10.1); Chloride 103 mmol/L (98-107); Glucose 105 mg/dL (74-106); Potassium 3.9 mmol/L (3.5-5.1); Sodium 137 mmol/L (136-145); Total Protein 7.4 g/dL (6.4-8.2)
[2020-04-20 09:38] LABS: Source Nasopharynx
[2020-04-20] MEDS: Omnipaque 350 MG/ML 100 ML BTL IJ (09:47)
[2020-04-20 10:36] LABS: COVID-19 PCR Negative (Negative); Influenza A PCR Negative (Negative); Influenza B PCR Negative (Negative); RSV PCR Negative (Negative)
[2020-04-20] MEDS: PIPERACILLIN/TAZO 4.5 GM in Normal Saline 100 ML IVPB ×2 (10:37→18:27)
[2020-04-20] MEDS: Normal Saline 1,000 ML 82 ML IV (10:38)
[2020-04-20] MEDS: Bupivacaine 0.25% Pres-Free 30 ML VIAL (13:39)
--- NOTE | 2020-04-20 18:23 | PDOC.CMIN ---
- If Service Date Differs Date of service: 04/20/20 Time of Service: 18:23 Care Management Initial Assess REASON FOR HOSPITALIZATION:: Post Hematoma PAST MEDICAL HISTORY/PAST SURGICAL HISTORY:: Medical History. Abdominal pain. Abnormal computed tomography of abdomen and pelvis. Allergic rhinitis. Anxiety. Cervicalgia. Colonic polyp. COPD (chronic obstructive pulmonary disease). pt. questions this. Depressive disorder. Diverticular disease of large intestine. Headache. History of open sigmoidectomy. for diverticular dx. Hyperlipidemia. Hypertension. Hypothyroid. Inguinal hernia. hx of 3 hernia repairs @ [facility]. Insomnia. Nonsustained ventricular tachycardia. F/U with PCP regularly 12/07/19. Osteoarthritis of left hand. Ventral hernia. Surgical History. H/O detached retina repair. @ [facility]. H/O ventral hernia repair (~01/30/20). Dr. Ruano. H/O: hysterectomy. History of cholecystectomy. History of colectomy (~07/12/10). [facility]. History of colonoscopy. 2000 3 year recall. 2002 5 year recall. ?? tubular adenoma & hyperplastic polyps [facility] 12/10/2010. History of hernia repair. 1993- [facility]. 10/28/2012 [facility]. September 08, 2013 [facility]. Hx of appendectomy PREVIOUS FUNCTIONAL STATUS/SOCIAL/FAMILY SUPPORTS:: Nayely lives in [place] with her , Yunior. Her son and dil Mejia and Regina, live nearby, and are very supportive. Another son, Juan also lives nearby. She has two other children who live further away. Nayely is independent at baseline. CURRENT FUNCTIONAL STATUS:: Nayely was sitting up in bed, eating dinner when CM met with her. She was pleasant and engaged in conversation. She stated that per MD, she will likely be ready for discharge tomorrow afternoon. She shared a recent experience with her that she stated needed to get off her chest, in regards to her PCP stopping his medication and recommending that he live in a senior care. Nayely was very upset while telling the story, as she has every intention of keeping him home with her as long as possible. CM will continue to follow. ADVANCE DIRECTIVES:: on file. Y[facility]ior [facility] Has patient been provided with info about the portal/API?: No Did the patient sign up for the portal?: No CODE STATUS:: Full Code INSURANCE COVERAGE / FINANCIAL ISSUES:: MCR/ [employer]/ [employer]/ for Life CURRENT HOME/COMMUNITY SERVICES/EQUIPMENT:: No current services or equipment. PRIMARY CARE PHYSICIAN:: Michelle Resendiz POTENTIAL DISCHARGE NEEDS:: Follow up with surgeon and discharge plan of care PATIENT/FAMILY EDUCATION NEEDS:: Discharge plan, limitations, follow up plan, Ask Me Three ANTICIPATED BARRIERS TO DISCHARGE:: None identified. TRANSPORTATION:: Via private car by family PLAN:: Nayely will be discharged home with no new services. She will follow up with her PCP, surgeon and discharge plan of care. CM will continue to support Nayely, her family and discharge planning considerations.
--- NOTE | 2020-04-20 21:46 | ROE_ITS ---
Date of service: 04/20/20 Time of Service: 21:47 Operative Note Operative Note DATE OF PROCEDURE: 04/20/20 PRE-OP DIAGNOSIS: postOp hematoma POST-OP DIAGNOSIS: same PROCEDURE: incision and drainage. VAC placemnt SURGEON: Evonne Ruano ANESTHESIA: MAC and regional ESTIMATED BLOOD LOSS: 2 PATHOLOGY: other COMPLICATIONS: None Patient was transported to: PACU Patient's condition: stable Procedure Description: Mary Lou Ruffin underwent hernia repair on 01/29. She was doing well in her postop course. On she woke up with a area of drainage on her abdominal incision. Subsequent CT showed a hematoma versus seroma versus abscess. It was drained in the office 50 cc of old blood. We did do a repeat ultrasound which did show another fluid collection. This was drained for another 50 cc of old blood. I saw her in the office on 04/19. She was still having a lot of drainage. Subsequent repeat CT was done today. And still shows sizable cavity. And concerned and do not want this developed into a postop abscess. She has a fresh mesh in there. The patient is here today for drainage. This does appear to be old hematoma. informed consent is obtained explaining risks and benefits of the procedure including bleeding, worsening of infection, scarring, need for heal by secondary intent, and complications of anesthesia. Patient is brought to the operative room suite. And placed in supine position with all bony surfaces padded. Anesthesia was ministered per the department of anesthesia. Patient is prepped draped in usual fashion using Betadine scrub solution. She had rectus sheath blocks performed by anesthesia. The site of the draining sinus is excised. This cavity is opened and explored. It is swept with the finger. There is scant serous material culture is sent. Surprisingly there is not that much fluid in this cavity. Pockets are opened up. It measures 6 x 4 x 2cm is curetted clean. It appears to be within the subcutaneous tissue. it is irrigated with a liter of saline. There is no bleeding noted. The mesh is not exposed. The mesh repair appears intact and there does not appear to be any further herniation. There does not appear to be any fistula between the bowel. The floor of the cavity is probed and does not communicate with any of the intra-abdominal structures. Ultrasound was performed sterilely which shows no further cavities or pockets and within the subcutaneous tissues. 10 cc of Exparel is infused into the skin flaps. A 4 x 2 inch piece of black foam for a cane wound VAC is placed into the cavity. Ano ther 1 x 1 inch piece of foam was placed on top of this. And the dressing is secured w/ tegaderm and maintains a seal at 125 mmHg.
--- NOTE | 2020-04-20 22:34 | HPE_ITS ---
Date of service: 04/20/20 Time of Service: 07:00 Assessment and Plan Assessment and plan (1) S/P hernia repair: Status: Acute (2) Postoperative hematoma: Status: Acute Assessment and plan: Patient had a postop hematoma following her hernia repair. It has been aspirated twice but it is still not resolved the fluid collection. Patient is here today for open surgical drainage of her postop hematoma before it is infected. We will keep her overnight for IV antibiotics and most likely place a wound VAC postoperatively. History of Present Illness Consults Consult date: 04/20/20 Narrative: Mary Lou is a 79-year-old female who is well-known to me. She had a hernia repair back on 114 07/10. She is developed a hematoma with a draining sinus. I am concerned about developing further infections. She we have had 2 percutaneous aspirations (both of which were old blood) and I have not been able to resolve the fluid collection. She is here today for follow-up CT. She still having fluid drainage from the wound. We removed a number 100 cc of fluid. And still continues to drain. There is no redness. She does not have significant pain. She has had no fevers. She is here today for repeat CT and then, most likely, washout in the OR. She has been n.p.o. She did not start new prescription of Augmentin last night. She is had no chest pain or shortness of breath. She has had no productive cough. She has no thrush. She has had no diarrhea from the antibiotics. She has had no calf pain or swelling. She said no dysuria signs and symptoms. She has been eating well and her bowels have been regular. Risks and benefits of the procedure include but not limited to complications from anesthesia, bleeding, infection, pneumonia, blood clots, damage to the mesh requiring removal, recurrence of the hernia, most likely we will need to do some type of packing for the wound. Possibly a wound VAC. Patient's Covid status is pending. Review of Systems All systems reviewed & are unremarkable except as noted in HPI and below PFSH Medical History Abdominal pain Abnormal computed tomography of abdomen and pelvis Allergic rhinitis Anxiety Cervicalgia Colonic polyp COPD (chronic obstructive pulmonary disease) pt. 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 Ruano H/O: hysterectomy History of cholecystectomy History of colectomy (~07/12/10) [facility] History of colonoscopy 2000 3 year recall 2002 5 year recall ?? tubular adenoma & hyperplastic polyps [facility] 12/10/2010 History of hernia repair 1993- [facility] 10/28/2012 [facility] September 08, 2013 [facility] Hx of appendectomy Social History Smoking/Tobacco Use Status: Never Smoking risk assessment performed?: Yes Alcohol Intake: current Alcohol Intake frequency: holidays/special occasions only Drug use: Never Substance use type: does not use Current gender identity: female Do you feel safe at home: Yes Do you feel safe in your relationship?: Yes Meds Home Medications and Allergies Home Medications Medication Instructions Recorded Confirmed Type albuterol sulfate [ProAir HFA] 2 puff INHALATION Q6H PRN 02/14/19 04/20/20 History cetirizine [Zyrtec] 10 mg PO DAILY PRN 02/14/19 04/20/20 History coenzyme Q10 [CoQ-10] 30 mg PO DAILY 02/14/19 04/20/20 History diazepam 5 mg PO DAILY PRN 02/14/19 04/20/20 History acetaminophen 650 mg 650 mg PO Q12H 08/26/19 04/20/20 History tablet,extended release ramipril 5 mg capsule 5 mg PO DAILY 12/09/19 04/20/20 History levothyroxine 25 mcg PO DAILY 04/20/20 04/20/20 History Allergies Allergy/AdvReac Type Severity Reaction Status Date / Time Sulfa (Sulfonamide Allergy Intermediate HIVES,HEADA Verified 04/19/20 11:09 Antibiotics) LISA sulfamethoxazole Allergy Intermediate HIVES, Verified 04/19/20 11:09 [From Bactrim] HEADACHE trimethoprim [From Bactrim] Allergy Intermediate HIVES, Verified 04/19/20 11:09 HEADACHE lisinopril AdvReac Severe HEADACES Verified 04/19/20 11:09 Exam Resp Effort & Inspection: normal respiratory effort and able to speak in complete sentences Auscultation: clear to auscultation bilaterally Cardio Rhythm: regular rhythm Heart Sounds: S1 normal GI Inspection: incision Palpation: soft Auscultation: normal bowel sounds Other: Postsurgical changes noted. She has the open draining sinus in the most inferior portion of her incision. This probes to about an inch deep but does not seem to be enjoying any of the fluid pockets that we see on the CT. The surrounding tissues intact. It appears to be serosanguineous is only mildly tender. Extrem General: normal to inspection and no clubbing, cyanosis or edema Results Labs Result diagrams: 04/20/20 08:40 04/20/20 08:40 Labs: Laboratory Results - last 24 hr 04/20/20 04/20/20 04/20/20 07:44 08:40 08:40 WBC 6.78 RBC 4.89 Hgb 12.5 Hct 40.1 MCV 82.0 MCH 25.6 L MCHC 31.2 L RDW 15.7 H Plt Count 268 MPV 8.8 Immature Gran % 0.3 Neutrophils % 78.2 Lymphocytes % 11.8 Monocytes % 5.3 Eosinophils % 3.4 Basophils % 1.0 Nucleated RBC % 0 Absolute Neutrophils 5.30 Absolute Lymphocytes 0.80 L Absolute Monocytes 0.36 Absolute Eosinophils 0.23 Absolute Basophils 0.07 PT INR Sodium 137 Potassium 3.9 Chloride 103 Carbon Dioxide 26.7 Anion Gap 7.3 BUN 11 Creatinine 0.7 Estimated GFR/1.73 m2 >= 60.00 Glucose 105 Calcium 8.9 Total Bilirubin 0.5 AST 11 L ALT 13 L Alkaline Phosphatase 69 C-Reactive Protein 1.34 H Total Protein 7.4 Albumin 3.4 COVID-19 Source SARS-CoV-2 (PCR) Cancelled Nasopharyn COVID-19 PCR Cancelled Influenza Type A (PCR) Influenza Type B (PCR) RSV (PCR) Ref Test Perform Site Cancelled 04/20/20 04/20/20 08:40 09:30 WBC RBC Hgb Hct MCV MCH MCHC RDW Plt Count MPV Immature Gran % Neutrophils % Lymphocytes % Monocytes % Eosinophils % Basophils % Nucleated RBC % Absolute Neutrophils Absolute Lymphocytes Absolute Monocytes Absolute Eosinophils Absolute Basophils PT 10.9 INR 1.1 Sodium Potassium Chloride Carbon Dioxide Anion Gap BUN Creatinine Estimated GFR/1.73 m2 Glucose Calcium Total Bilirubin AST ALT Alkaline Phosphatase C-Reactive Protein Total Protein Albumin COVID-19 Source Nasopharynx SARS-CoV-2 (PCR) Negative Nasopharyn COVID-19 PCR Influenza Type A (PCR) Negative Influenza Type B (PCR) Negative RSV (PCR) Negative Ref Test Perform Site Last Vital Signs Temp 36.3 C L 04/20/20 20:16 Pulse 85 04/20/20 20:16 Resp 16 04/20/20 20:16 BP 109/62 04/20/20 20:16 Pulse Ox 94 04/20/20 20:16 COVID-19 Screening Have you, or household traveled for leisure in last 14 days?: No Had IN PERSON contact w/suspected or confirmed C-19 person: No
--- NOTE | 2020-04-20 22:44 | W.PM.PROGNOT ---
Date of Service Date of service: 04/20/20 Time of Service: 18:00 Subjective Subjective Interval history since last seen: Patient seen and examined postoperatively. She is doing well. She is not having any pain. We discussed findings. Again it did appear to be an old hematoma. The repair appears intact. Cultures were taken. We did place a wound VAC and we will order one for her for outpatient use. We will keep her in the hospital overnight on IV antibiotics. I do not want wound or the mesh to get infected. She is doing well postop. She has no eye pain. She has no jaw pain. She has no dental malocclusion. She is not having any diarrhea. She is tolerating clear liquids. No chest pain or shortness of breath. No fevers no cough. No leg pain or swelling. She has not been up to urinate yet. Paperwork was completed for the back. However most likely will not have this until Thursday or Thursday. I would probably take the hospital VAC off in the morning and just pack it with silver packing material and I will have her come in on Thursday to base the wound VAC. Objective Last Vital Signs Temp 36.3 C L 04/20/20 20:16 Pulse 85 04/20/20 20:16 Resp 16 04/20/20 20:16 BP 109/62 04/20/20 20:16 Pulse Ox 94 04/20/20 20:16 Laboratory Results - last 24 hr 04/20/20 04/20/20 04/20/20 07:44 08:40 08:40 WBC 6.78 RBC 4.89 Hgb 12.5 Hct 40.1 MCV 82.0 MCH 25.6 L MCHC 31.2 L RDW 15.7 H Plt Count 268 MPV 8.8 Immature Gran % 0.3 Neutrophils % 78.2 Lymphocytes % 11.8 Monocytes % 5.3 Eosinophils % 3.4 Basophils % 1.0 Nucleated RBC % 0 Absolute Neutrophils 5.30 Absolute Lymphocytes 0.80 L Absolute Monocytes 0.36 Absolute Eosinophils 0.23 Absolute Basophils 0.07 PT INR Sodium 137 Potassium 3.9 Chloride 103 Carbon Dioxide 26.7 Anion Gap 7.3 BUN 11 Creatinine 0.7 Estimated GFR/1.73 m2 >= 60.00 Glucose 105 Calcium 8.9 Total Bilirubin 0.5 AST 11 L ALT 13 L Alkaline Phosphatase 69 C-Reactive Protein 1.34 H Total Protein 7.4 Albumin 3.4 COVID-19 Source SARS-CoV-2 (PCR) Cancelled Nasopharyn COVID-19 PCR Cancelled Influenza Type A (PCR) Influenza Type B (PCR) RSV (PCR) Ref Test Perform Site Cancelled 04/20/20 04/20/20 08:40 09:30 WBC RBC Hgb Hct MCV MCH MCHC RDW Plt Count MPV Immature Gran % Neutrophils % Lymphocytes % Monocytes % Eosinophils % Basophils % Nucleated RBC % Absolute Neutrophils Absolute Lymphocytes Absolute Monocytes Absolute Eosinophils Absolute Basophils PT 10.9 INR 1.1 Sodium Potassium Chloride Carbon Dioxide Anion Gap BUN Creatinine Estimated GFR/1.73 m2 Glucose Calcium Total Bilirubin AST ALT Alkaline Phosphatase C-Reactive Protein Total Protein Albumin COVID-19 Source Nasopharynx SARS-CoV-2 (PCR) Negative Nasopharyn COVID-19 PCR Influenza Type A (PCR) Negative Influenza Type B (PCR) Negative RSV (PCR) Negative Ref Test Perform Site
--- NOTE | 2020-04-20 22:47 | PDOC.HHF2F_ITS ---
Home Health Certification Home Health Certification: 1. Encounter Date and Reason I certify that STEWART BRENNAN was seen by Evonne Ruano on 04/20/20 and that I had a [id number] encounter with this patient that meets the physician face to face encounter requirements. 2. Clinical Findings Supporting Skilled Need and Homebound Status I certify that home health services are medically necessary, include either intermittent snf and/or physical/speech therapy, and that this patie nt is homebound in that absences from the home require considerable and taxing effort and are infrequent or of short duration, or are attributable to the need to receive medical care. [X] (a) Attached documentation from encounter provides clinical findings supporting skilled need and homebound status (including what assistance patient requires to leave the home). 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 Certification and Authentication I certify that I composed the above information based on my clinical judgement relating to this patient's medical condition and, if applicable, clinical findings communicated to me by the NPP or inpatient physician who performed the Home Health Referral. All further orders will be obtained through (Community Based Physician - PCP)
[2020-04-21 00:15] VITALS: BP 108/64; PULSE 62; RESP 18; TEMP 36.3; O2SAT 97
[2020-04-21] MEDS: PIPERACILLIN/TAZO 4.5 GM in Normal Saline 100 ML IVPB ×2 (01:44→10:44)
[2020-04-21 03:38] VITALS: BP 109/65; PULSE 72; RESP 17; TEMP 36.7; O2SAT 95
[2020-04-21] MEDS: Normal Saline Flush 10 ML SYR IVP ×2 (05:48→10:45)
[2020-04-21 08:00] VITALS: BP 109/65; PULSE 78; RESP 16; TEMP 36.5; O2SAT 96
[2020-04-21] MEDS: Normal Saline 500 ML 25 ML IV (10:45)
--- NOTE | 2020-04-21 13:25 | W.PM.PROGNOT ---
Date of Service Date of service: 04/21/20 Time of Service: 13:25 Assessment and Plan Assessment and plan (1) S/P hernia repair: Status: Acute (2) Postoperative hematoma: Status: Acute Assessment and plan: Patient is doing well from her recent I&D. I d/w her findings at surgery. There is no signs of infection. I did place a wound VAC. Wound VAC. A home vac was ordered will place thursday or thursday in clinic. We discussed findings at surgery. there does not appear to be any infection. She is doing well and has minimal pain. Discharging in a.m. Subjective Subjective Interval history since last seen: Pt is doing well. no headaches. No CP or SOB. no productive cough. no dysuria. no leg pain or swelling. She is tolerating a regular diet. No fevers or chills. pain is well controlled. no n/v. Exam HENMT Other: no thrush Resp Effort & Inspection: normal respiratory effort and able to speak in complete sentences Auscultation: clear to auscultation bilaterally Cardio Rate: regular rate Rhythm: regular rhythm GI Inspection: incision Palpation: soft Auscultation: normal bowel sounds Other: no diarrhea wound vac in place and functional Extrem General: no clubbing, cyanosis or edema Objective Last Vital Signs Temp 36.7 C 04/21/20 03:38 Pulse 72 04/21/20 03:38 Resp 17 04/21/20 03:38 BP 109/65 04/21/20 03:38 Pulse Ox 95 04/21/20 03:38
--- NOTE | 2020-04-21 13:26 | W.PM.DS.N ---
Date of service: 04/21/20 Time of Service: 13:34 DS: Diagnosis Discharge Diagnosis (1) S/P hernia repair: Status: Acute (2) Postoperative hematoma: Status: Acute Discharge Plan Disposition Patient Disposition: HOME Condition: Improving Discharge Details Reason For Visit: POST HEMATOMA Admit Date/Time: 04/20/20 07:32 Admit Provider: Evonne Ruano Attending Provider: Evonne Ruano Primary Care Provider: Doretha Resendiz Home Meds and New Rx's Prescriptions: New cephalexin [Keflex] 250 mg capsule 250 mg PO QID 5 Days Qty: 20 RF: 0 Bio-K plus 50 billion cell capsule,delayed release(DR/EC) 1 cap PO DAILY 30 Days Qty: 30 RF: 0 Continued acetaminophen [Tylenol Arthritis Pain] 650 mg tablet extended release 650 mg PO Q12H RF: 0 ramipril 5 mg capsule 5 mg PO DAILY RF: 0 levothyroxine 25 mcg Tablet 25 mcg PO DAILY RF: 0 cetirizine [Zyrtec] 10 mg Tablet 10 mg PO DAILY PRNRF: 0 albuterol sulfate [ProAir HFA] 90 mcg/actuation Hfa Aerosol Inhaler 2 puff INHALATION Q6H PRNRF: 0 coenzyme Q10 [CoQ-10] 30 mg Capsule 30 mg PO DAILY RF: 0 diazepam 5 mg Tablet 5 mg PO DAILY PRN (Reason: Anxiety) RF: 0 Discharge Instructions Additional Instructions: -yogurt daily while on antiobiotics -no lifting over 10# -walk -regular diet -encourage fluids -cover dressing to shower -the wound has packing in place. You can just leave the packing- Dr. Ruano will change this on Thursday. Change the Mepilex (outer dressing) if wet or soiled. You have x2 extra dressings. -The plan is place a wound VAC. This should come to your residence on Thursday or Thursday. My office will call on Thursday and make a follow up appt for Thursday afternoon. Bring the wound VAC w/ you on Thursday and we will put it on. A home RN will come M/W/F and change the VAC. If the VAC does not come until Thursday- we will make arrangements to put it on sometime on Thursday. -continue to take the antibiotics (keflex) 4x a day for the next 5days. Yogurt daily while on antibiotics. -diet as tolerated -Tylenol as needed for pain Activity:: see above Equipment/Supplies:: No Equipment Needed Diet:: Normal Diet DS: Summary Time Spent with Patient providing and/or coordinating discharge services: Greater than 30 minutes Status at Discharge Functional status at discharge: independent ambulation Overall status at discharge: patient is back to baseline Mental Status: mental status grossly normal Speech and Movement: speech and movement normal Mood: congruent mood Affect: normal affect Exam Psych Mental Status: mental status grossly normal Speech and Movement: speech and movement normal Mood: congruent mood Affect: normal affect DS: Data Vitals/I&O Vitals and I&O: Vital Signs Temperature 36.7 C 04/21/20 03:38 Temperature Source Tympanic 04/21/20 03:38 Pulse 72 04/21/20 03:38 Pulse Rhythm Regular 04/21/20 00:15 Respiratory Rate 17 04/21/20 03:38 Respiratory Effort Non-Labored 04/21/20 00:15 Respiratory Depth Normal 04/21/20 00:15 Respiratory Pattern Normal 04/21/20 00:15 Blood Pressure 109/65 04/21/20 03:38 Pulse Oximetry 95 04/21/20 03:38 Respiratory End-tidal CO2 33 04/20/20 14:42 Oxygen Delivery Method Room Air 04/21/20 03:38 Oxygen Flow Rate 0 04/21/20 03:38 Pain Level 0 04/21/20 03:38 Intake & Output 04/20/20 04/21/20 04/21/20 23:59 11:59 23:59 Intake Total 950.100 / 1290.100 575 / 575 Output Total 375 / 375 333 / 333 Balance 575.100 / 915.100 242 / 242 Intake: IV 950.100 / 1050.100 135 / 135 Oral 440 / 440 Output: Urine 375 / 375 333 / 333 Other: Urine Color Yellow Yellow Urine Appearance Clear Clear Urine Odor Normal Normal Comment Pt's first void post surgery. Stool Size Large Stool Characteristics Liquid Emesis Description None Voiding Methods Bedside Commode Toilet Data Completed and Pending Labs on day of discharge: 04/20/20 13:32 Abdomen Anaerobic Culture - Pending Preliminary micro results at discharge 04/20/20 13:32 Surgical Culture - Preliminary Abdomen 04/20/20 08:55 Skin Culture - Preliminary Abdomen Normal Elisabeth 04/20/20 08:40 Blood Culture - Preliminary Blood NO GROWTH 24 HOURS 04/20/20 08:45 Blood Culture - Preliminary Blood NO GROWTH 24 HOURS 04/20/20 13:32 Anaerobic Culture - Pending Abdomen [facility] Medical History Abdominal pain Abnormal computed tomography of abdomen and pelvis Allergic rhinitis Anxiety Cervicalgia Colonic polyp COPD (chronic obstructive pulmonary disease) pt. 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 Ruano H/O: hysterectomy History of cholecystectomy History of colectomy (~07/12/10) [facility] History of colonoscopy 2000 3 year recall 2003 5 year recall ?? tubular adenoma & hyperplastic polyps [facility] 12/10/2010 History of hernia repair 1993- Ruth Ann Donohue [place] 10/28/2012 [facility] September 08, 2013 [facility] Hx of appendectomy Social History Smoking/Tobacco Use Status: Never Smoking risk assessment performed?: Yes Alcohol Intake: current Alcohol Intake frequency: holidays/special occasions only Drug use: Never Substance use type: does not use Current gender identity: female Do you feel safe at home: Yes Do you feel safe in your relationship?: Yes
--- NOTE | 2020-04-21 16:40 | PDOC.CMDIS ---
- If Service Date Differs Date of service: 04/21/20 Time of Service: 16:40 LACE Index Scoring Tool - Questions: Length of Stay (in days): 2 Acuity (Admit via E.D.?): No Comorbidities: Chronic Pulmonary Disease E.D. Visits: 1 - Answers: Total Score: 5 Risk of Readmission: Low Risk Care Management Discharge Reason for Hospitalization: Post Hematoma Discharge Plan: Nayely will return home today with orders for new HH RN for wound vac dressing changes three times a week. Her wound vac will be delivered to her home, and she will bring it to the office on Thursday, where it will be put on. CM faxed the referral for HH to begin on Thursday. She will follow up with her PCP, her Surgeon and her discharge plan of care. Her son will drive her home via private vehicle. She is happy to be going home. Patient/Family Education Needs: Review discharge instructions regarding activity levels and medications, discussion of self care needs and goals of care. Services Needed at Discharge: Home Health Care Services (RN)
== END 2020-04-21 15:19 | disposition home or self-care (01) | DRG 908 ==
LOC: MS 07:39
PROVIDERS: Admitting Provider Surgery; PCP Nurse Practitioner Family; Visit Provider Surgery
PROC: 0J980ZZ Drainage of Abdomen Subcutaneous Tissue and Fascia, Open Approach (ICD-10-PCS; CPT 10140; principal; 2020-04-20 13:00)
DX: L76.32 Postprocedural hematoma of skin and subcutaneous tissue following other procedure (principal); I47.2 Ventricular tachycardia; Y83.8 Other surgical procedures as the cause of abnormal reaction of the patient, or of later complication, without mention of misadventure at the time of the procedure; E78.5 Hyperlipidemia, unspecified; I10 Essential (primary) hypertension; J44.9 Chronic obstructive pulmonary disease, unspecified; F41.9 Anxiety disorder, unspecified; F32.9 Major depressive disorder, single episode, unspecified; J30.9 Allergic rhinitis, unspecified; R51.9 Headache, unspecified; E03.9 Hypothyroidism, unspecified; K57.30 Diverticulosis of large intestine without perforation or abscess without bleeding
CPT/HCPCS: 10140; 36415; 80053; 87040; 99221; 99239; NC; U0003; 74177; 85025; 85610; 86140; 87070; 87075; 87205; J1100; J2543; J3490; Q9967

== ENCOUNTER → 2020-04-23 14:45 | Outpatient (BNVA) | payer MEDICARE, OTHER, BC, SELFPAY | PROVIDERS: PCP Nurse Practitioner Family; Referring Provider Nurse Practitioner Family; Visit Provider Surgery | DX: Z51.89 Encounter for other specified aftercare (principal) ==

== ENCOUNTER → 2020-05-17 14:49 | Outpatient (BNVA) | payer MEDICARE, OTHER, BC, SELFPAY | PROVIDERS: PCP Nurse Practitioner Family; Referring Provider Nurse Practitioner Family; Visit Provider Surgery | DX: Z48.815 Encounter for surgical aftercare following surgery on the digestive system (principal); Z87.19 Personal history of other diseases of the digestive system; K57.30 Diverticulosis of large intestine without perforation or abscess without bleeding; Z90.49 Acquired absence of other specified parts of digestive tract; K43.9 Ventral hernia without obstruction or gangrene; J44.9 Chronic obstructive pulmonary disease, unspecified; L76.32 Postprocedural hematoma of skin and subcutaneous tissue following other procedure | CPT/HCPCS: 97605; 99213 ==

== ENCOUNTER → 2020-05-31 10:51 | Outpatient (BNVA) | payer MEDICARE, OTHER, BC, SELFPAY | PROVIDERS: PCP Nurse Practitioner Family; Referring Provider Nurse Practitioner Family; Visit Provider Surgery | DX: L76.32 Postprocedural hematoma of skin and subcutaneous tissue following other procedure (principal); Z51.89 Encounter for other specified aftercare | CPT/HCPCS: 99212; 99213 ==

== ENCOUNTER → 2020-06-14 10:20 | Outpatient (BNVA) | payer MEDICARE, OTHER, BC, SELFPAY | PROVIDERS: PCP Nurse Practitioner Family; Referring Provider Nurse Practitioner Family; Visit Provider Surgery | DX: L76.32 Postprocedural hematoma of skin and subcutaneous tissue following other procedure (principal); K57.30 Diverticulosis of large intestine without perforation or abscess without bleeding; Z98.890 Other specified postprocedural states | CPT/HCPCS: 99212; 99213 ==

== ENCOUNTER 2020-07-03 17:39 | Outpatient (REF) | payer MEDICARE, OTHER, BC, SELFPAY ==
[2020-07-04 12:23] LABS: COVID-19 RT-PCR UVMMC Result Negative (Negative)
== END 2020-07-03 17:40 | disposition home or self-care (01) ==
LOC: NCHCN 17:39
PROVIDERS: PCP Nurse Practitioner Family; Visit Provider Nurse Practitioner Family
DX: Z20.822 Contact with and (suspected) exposure to COVID-19 (principal)
CPT/HCPCS: U0003; U0005

== ENCOUNTER → 2020-07-05 10:20 | Outpatient (BNVA) | payer MEDICARE, OTHER, BC, SELFPAY | PROVIDERS: PCP Nurse Practitioner Family; Referring Provider Nurse Practitioner Family; Visit Provider Surgery | DX: Z48.815 Encounter for surgical aftercare following surgery on the digestive system (principal); T81.89XA Other complications of procedures, not elsewhere classified, initial encounter | CPT/HCPCS: 11042; 99213 ==

== ENCOUNTER → 2020-07-26 10:18 | Outpatient (BNVA) | payer MEDICARE, OTHER, BC, SELFPAY | PROVIDERS: PCP Nurse Practitioner Family; Referring Provider Nurse Practitioner Family; Visit Provider Surgery | DX: Z48.815 Encounter for surgical aftercare following surgery on the digestive system (principal); R20.0 Anesthesia of skin | CPT/HCPCS: 99212 ==

== ENCOUNTER 2020-10-11 19:52 | Outpatient (REF) | payer MEDICARE, OTHER, SELFPAY ==
[2020-10-11 16:04] LABS: TSH (W/Ref FT4) 3.22 uIU/mL (0.36-3.74)
== END 2020-10-11 19:53 | disposition home or self-care (01) ==
LOC: NCHCN 19:52
PROVIDERS: PCP Nurse Practitioner Family; Visit Provider Nurse Practitioner Family
DX: E03.9 Hypothyroidism, unspecified (principal); K30 Functional dyspepsia; R32 Unspecified urinary incontinence; F32.9 Major depressive disorder, single episode, unspecified; G47.00 Insomnia, unspecified; J44.9 Chronic obstructive pulmonary disease, unspecified; J30.9 Allergic rhinitis, unspecified; I10 Essential (primary) hypertension
CPT/HCPCS: 84443

== ENCOUNTER 2020-12-06 10:57 | Emergency (ER) | payer MEDICARE, OTHER, BC, SELFPAY ==
[2020-12-06 11:13] VITALS: BP 145/74; PULSE 92; RESP 16; TEMP 37.1; O2SAT 98
--- NOTE | 2020-12-06 11:45 | DI.RAD_ITS ---
Exam(s) XR WRIST LT COMPLETE EXAM: XR WRIST LT COMPLETE CLINICAL HISTORY: pain and swelling. TECHNIQUE: 2D digital imaging was performed of the left wrist. Three views were obtained. PA, obli que and lateral views were obtained. COMPARISON: No exams were available for comparison FINDINGS: BONES: No acute fracture is present. No bony destructive lesion is seen. JOINTS: The carpal bones are normally aligned. There are marked degenerative changes seen at the 1st CMC joint with joint space narrowing, subchondral sclerosis and hypertrophic spurring. More mild deg enerative changes are seen at the articulation of the scaphoid with the quadrangular bones. SOFT TISSUE: Chondrocalcinosis in the region of the TFCC is noted. IMPRESSION: 1. No acute fracture or dislocation. 2. 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 DATA REPOSITORY: RADIATION DOSE DELIVERED:
[2020-12-06 13:16] LABS: Abs Immature Grans 0.02 10^3/uL (0.0-0.06); Absolute Basophil Count 0.07 10^3/uL (0.0-0.2); Absolute Eosinophil Count 0.15 10^3/uL (0.0-0.7); Absolute Lymphocyte Count 1.49 10^3/uL (1.2-3.4); Absolute Monocyte Count 0.48 10^3/uL (0.1-0.8); Absolute Neutrophil Count 5.21 10^3/uL (1.2-6.7); Basophils % 0.9; HCT 46.5 % (36.0-46.0); HGB 15.5 g/dL (11.2-15.7); Immature Grans % 0.3; Lymphocytes % 20.1; MCH 27.7 pg (27.0-33.0); MCHC 33.3 % (32.0-36.0); MPV 9.4 fL (8.0-11.0); Monocytes % 6.5; Neutrophils % 70.2; Nucleated RBC 0 %; Platelet Count 208 10^3/uL (130-400); RDW 13.3 % (11.7-14.6); RDW-SD 40.1 fL; WBC 7.42 10^3/uL (4.4-10.8)
[2020-12-06 13:31] LABS: ALT 19 U/L (14-59); AST 16 U/L (15-37); Alkaline Phosphatase 82 U/L (46-116); Anion Gap 8.8 mmol/L (3-11); BUN 11 mg/dL (7-18); Bilirubin, Total 0.5 mg/dL (0.2-1.0); C-Reactive Protein 1.49 mg/dL (0.0-0.3); CO2 26.2 mmol/L (21.0-32.0); CREATININE 0.8 mg/dL (0.55-1.02); Calcium 9.3 mg/dL (8.5-10.1); Chloride 106 mmol/L (98-107); Glucose 83 mg/dL (74-106); Sodium 141 mmol/L (136-145); Total Protein 7.9 g/dL (6.4-8.2)
--- NOTE | 2020-12-06 13:55 | W.ED.GENAD ---
Discharge Plan Disposition Patient Disposition: HOME Condition: Good Discharge Details Clinical Impression: Acute wrist pain Primary Care Provider: Doretha Resendiz ED Provider: Monse Maya Home Meds and New Rx's Prescriptions: New prednisone 20 mg tablet 40 mg PO DAILY Qty: 10 RF: 0 diclofenac sodium 3 % gel 1 applic topical BID Qty: 100 RF: 0 Continued acetaminophen [Tylenol Arthritis Pain] 650 mg tablet extended release 650 mg PO Q12H RF: 0 ramipril 5 mg capsule 5 mg PO DAILY RF: 0 levothyroxine 25 mcg Tablet 25 mcg PO DAILY RF: 0 cetirizine [Zyrtec] 10 mg Tablet 10 mg PO DAILY PRNRF: 0 albuterol sulfate [ProAir HFA] 90 mcg/actuation Hfa Aerosol Inhaler 2 puff INHALATION Q6H PRNRF: 0 coenzyme Q10 [CoQ-10] 30 mg Capsule 30 mg PO DAILY RF: 0 diazepam 5 mg Tablet 5 mg PO DAILY PRN (Reason: Anxiety) RF: 0 aspirin 325 mg Capsule PO RF: 0 Discharge Instructions Additional Instructions: Use the diclofenac gel as prescribed Wear your splint Follow-up with orthopedic tomorrow Take the prednisone as prescribed With spreading redness, fever, worsening pain despite taking Tylenol six fifty every 4 hours, using diclofenac gel as prescribed, and taking the prednisone as prescribed please return to the emergency room for reevaluation Referrals: Mendoza Grayson MD [ [facility] STAFF PHYSICIAN] - Discharge Data Discharge Date/Time-TO BE ENTERED AT DEPARTURE: 12/06/20 14:14 Medical Decision Making Patient appears well, elevated CRP but no evidence of septic arthritis given presentation, 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 Placed in a blind X-ray results interpreted by radiology of the left wrist Plan on prednisone for the next couple of days, Tylenol, Voltaren gel Orthopedic referral supplied patient will need close outpatient follow-up return precautions discussed and patient expressed understanding No evidence of septic arthritis Given the threshold to return with new or worsening complaints Medical Records Medical records reviewed: Yes I reviewed the patient's medical records. Lab Data Lab results reviewed: Yes I reviewed the patient's lab results. HPI General Mode of arrival: ambulatory. Date/Time Provider Initiated Documentation: 12/06/20 11:18. Limitations to Documentation: no limitations. Information obtained by: patient. HPI Narrative: This 80-year-old female with history of depression, COPD, cervicalgia, anxiety, abdominal pain, hyperlipidemia, hypertension, hypothyroidism presents with report of left wrist pain. Patient states she had intermittent discomfort but for the past 4 days she started with an aching out of 10. She denies fever or chills. She denies chest pain or shortness of breath. She states that it is tender with movement. She denies any sensation changes distally. Related Data Home Medications Medication Instructions Recorded Confirmed albuterol sulfate [ProAir HFA] 2 puff INHALATION Q6H PRN 02/14/19 04/20/20 cetirizine [Zyrtec] 10 mg PO DAILY PRN 02/14/19 12/06/20 coenzyme Q10 [CoQ-10] 30 mg PO DAILY 02/14/19 04/20/20 diazepam 5 mg PO DAILY PRN 02/14/19 04/20/20 acetaminophen 650 mg 650 mg PO Q12H 08/26/19 12/06/20 tablet,extended release ramipril 5 mg capsule 5 mg PO DAILY 12/09/19 12/06/20 levothyroxine 25 mcg PO DAILY 04/20/20 12/06/20 aspirin mg PO 12/06/20 diclofenac sodium 1 applic TOPICAL BID #100 g 12/06/20 prednisone 40 mg PO DAILY #10 tab 12/06/20 Previous Rx's Medication Instructions Recorded diclofenac sodium 1 applic TOPICAL BID #100 g 12/06/20 prednisone 40 mg PO DAILY #10 tab 12/06/20 Allergies Allergy/AdvReac Type Severity Reaction Status Date / Time Sulfa (Sulfonamide Allergy Intermediate HIVES,HEADA Verified 12/06/20 11:18 Antibiotics) LISA sulfamethoxazole Allergy Intermediate HIVES, Verified 12/06/20 11:18 [From Bactrim] HEADACHE trimethoprim [From Bactrim] Allergy Intermediate HIVES, Verified 12/06/20 11:18 HEADACHE lisinopril AdvReac Severe HEADACES Verified 12/06/20 11:18 General Stated Complaint: Orthopedic VITOR: 4 Review of Systems All systems reviewed & are unremarkable except as noted in HPI and below PFSH Medical History (Updated 12/06/20 @ 14:01 by GUZMAN Goodrich) Abdominal pain Abnormal computed tomography of abdomen and pelvis Allergic rhinitis Anxiety Cervicalgia Colonic polyp COPD (chronic obstructive pulmonary disease) pt. questions this Depressive disorder Diverticular disease of large intestine Headache History of open sigmoidectomy for diverticular dx Hyperlipidemia Hypertension Hypothyroid Inguinal hernia hx of 3 hernia repairs @ [facility] Insomnia Nonsustained ventricular tachycardia F/U with PCP regularly 12/07/19 Osteoarthritis of left hand Surgical History (Updated 05/09/20 @ 00:03 by RYAN MENDEZ) H/O detached retina repair @ [facility] H/O ventral hernia repair (~01/30/20) Dr. Ruano H/O: hysterectomy History of cholecystectomy History of colectomy (~07/12/10) [facility] History of colonoscopy 2000 3 year recall 2002 5 year recall ?? tubular adenoma & hyperplastic polyps [facility] 12/10/2010 History of hernia repair 1993- [facility] 10/28/2012 [facility] September 08, 2013 [facility] Hx of appendectomy Social History Smoking/Tobacco Use Status: Never Smoking risk assessment performed?: Yes Alcohol Intake: current Alcohol Intake frequency: holidays/special occasions only Drug use: Never Substance use type: does not use Current gender identity: female Do you feel safe at home: Yes Do you feel safe in your relationship?: Yes Exam Extrem Other: Patient with tenderness and pain to his left wrist, no erythema, no strength or sensation change No crepitus Course Vital Signs Vital signs: Vital Signs Temperature 37.1 C 12/06/20 11:13 Pulse 92 H 12/06/20 11:13 Respiratory Rate 16 12/06/20 11:13 Blood Pressure 145/74 H 12/06/20 11:13 Pulse Oximetry 98 12/06/20 11:13 Temperature 37.1 C 12/06/20 11:13 Temperature Source Skin 12/06/20 11:13 Pulse 92 H 12/06/20 11:13 Respiratory Rate 16 12/06/20 11:13 Respiratory Effort Non-Labored 12/06/20 12:14 Blood Pressure 145/74 H 12/06/20 11:13 Pulse Oximetry 98 12/06/20 11:13 Oxygen Delivery Method Room Air 12/06/20 11:13 Oxygen Flow Rate 0 12/06/20 11:13 Pain Level 10 12/06/20 11:13 Lab/Test Results Lab/Test Results: Laboratory Tests Range/Units 12/06/20 12/06/20 13:10 13:10 WBC (4.4-10.8) 10^3/uL 7.42 RBC (3.93-5.22) 10^6/uL 5.60 H Hgb (11.2-15.7) g/dL 15.5 Hct (36.0-46.0) % 46.5 H MCV (80-95) fL 83.0 MCH (27.0-33.0) pg 27.7 MCHC (32.0-36.0) % 33.3 RDW (11.7-14.6) % 13.3 Plt Count (130-400) 10^3/uL 208 MPV (8.0-11.0) fL 9.4 Immature Gran % 0.3 Neutrophils % 70.2 Lymphocytes % 20.1 Monocytes % 6.5 Eosinophils % 2.0 Basophils % 0.9 Nucleated RBC % % 0 Absolute Neutrophils (1.2-6.7) 10^3/uL 5.21 Absolute Lymphocytes (1.2-3.4) 10^3/uL 1.49 Absolute Monocytes (0.1-0.8) 10^3/uL 0.48 Absolute Eosinophils (0.0-0.7) 10^3/uL 0.15 Absolute Basophils (0.0-0.2) 10^3/uL 0.07 Sodium (136-145) mmol/L 141 Potassium (3.5-5.1) mmol/L 4.0 Chloride (98-107) mmol/L 106 Carbon Dioxide (21.0-32.0) mmol/L 26.2 Anion Gap (3-11) mmol/L 8.8 BUN (7-18) mg/dL 11 Creatinine (0.55-1.02) mg/dL 0.8 Estimated GFR/1.73 m2 (mL/min/1.73m2) >= 60.00 Glucose (74-106) mg/dL 83 Calcium (8.5-10.1) mg/dL 9.3 Total Bilirubin (0.2-1.0) mg/dL 0.5 AST (15-37) U/L 16 ALT (14-59) U/L 19 Alkaline Phosphatase (46-116) U/L 82 C-Reactive Protein (0.0-0.3) mg/dL 1.49 H Total Protein (6.4-8.2) g/dL 7.9 Albumin (3.4-5.0) g/dL 4.0
== END 2020-12-06 14:14 | disposition home or self-care (01) ==
PROVIDERS: Emergency Provider Physician Assistant; PCP Nurse Practitioner Family
DX: M25.532 Pain in left wrist (principal); R79.82 Elevated C-reactive protein (CRP)
CPT/HCPCS: 36415; 80053; 99284; 73110; 85025; 86140; 99283

== ENCOUNTER → 2020-12-25 10:05 | Outpatient (BNVA) | payer MEDICARE, OTHER, BC, SELFPAY | PROVIDERS: PCP Nurse Practitioner Family; Referring Provider Nurse Practitioner Family | DX: M18.11 Unilateral primary osteoarthritis of first carpometacarpal joint, right hand (principal); M18.12 Unilateral primary osteoarthritis of first carpometacarpal joint, left hand | CPT/HCPCS: 99213 ==

== ENCOUNTER → 2021-01-10 02:03 | Outpatient (CLI) | payer MEDICARE, OTHER, SELFPAY ==
--- NOTE | 2021-01-10 08:00 | DI.RAD_ITS ---
Exam(s) RF JOINT INJECTION FLUORO GUID EXAM: RF JOINT INJECTION FLUORO GUID CLINICAL HISTORY: l THUMB PAIN,lt thumb injection, m18.11,oa carpometacarpal joint TECHNIQUE: Fluoroscopy provided. Radiologist not present. CONTRAST MATERIAL: None COMPARISON: No exams were available for comparison FINDINGS: Fluoroscopy was provided for Dr. Mary during injection of carpometacarpal joint.. Please refer to the procedure report for complete details. Cumulative Dose: Ka,r=0.124 mGy IMPRESSION: RADIATION DOSE DELIVERED:
[2021-01-10] MEDS: Bupivacaine 0.5% Pres-Free 10 ML VIAL IJ (14:16)
[2021-01-10] MEDS: methylPREDNISolone ACETATE 40 MG/ML VIAL IM (14:19)
--- NOTE | 2021-01-10 14:54 | W.PROCNOTE ---
Date of service: 01/10/21 Time of Service: 13:54 Procedure Note Date of procedure: 01/10/21 Procedure: Left 1st CMC Joint Injection Surgeon/Proceduralist/Physician: Fabricio Mary Procedure Diagnosis: Left 1st CMC Osteoarthritis Procedure Indications: Nayely has had worsening pain of the left thumb. She has been bracing but continues to have pain. Given the severe arthritis, I offered an injection to the first CMC joint. I reviewed the pros and cons about the injection and she agreed to proceed. Procedure Description: After a review of the risks of the injection, the patient agreed to proceed. The left thumb was identified by the patient as the correct side. The proximal-radial border of the first metacarpal was identified and then prepped with chloraprep. Fluoroscopy was utilized to target the starting point. The starting point and the soft tissue superficial to the 1st CMC was then anesthetized with 1% Lidocaine. The 1st CMC joint was then entered at its edge under fluoroscopic guidance. Entering the joint fully was very difficult as the needle would penetrate uner the 1st metacarpal but had difficulty advancing fully. Position was adjusted but still not able to penetrate fully but flouroscopy confirmed that the needle was appropriately positioned at the end of the joint. Thus, I injected the 1st CMC with of 1cc of 0.5% Bupivicaine and 40mg of DepoMedrol. This was injected with minimal resistance. The patient tolerated the procedure well and the injection site was dressed with a Band-Aid.
== END ==
PROVIDERS: PCP Nurse Practitioner Family; Visit Provider Student in an Organized Health Care Education/Training Program
DX: M18.11 Unilateral primary osteoarthritis of first carpometacarpal joint, right hand (principal); M25.542 Pain in joints of left hand
CPT/HCPCS: 20600; 77002; J1030

== ENCOUNTER 2021-04-16 16:18 | Outpatient (REF) | payer MEDICARE, OTHER, SELFPAY ==
[2021-04-16 16:26] LABS: TSH (W/Ref FT4) 6.78 uIU/mL (0.36-3.74)
[2021-04-16 16:42] LABS: FREE T4 0.74 ng/dL (0.76-1.46)
== END 2021-04-16 16:19 | disposition home or self-care (01) ==
LOC: NCHCN 16:18
PROVIDERS: PCP Nurse Practitioner Family; Visit Provider Nurse Practitioner Family
DX: E03.9 Hypothyroidism, unspecified (principal); F41.8 Other specified anxiety disorders
CPT/HCPCS: 84439; 84443

== ENCOUNTER 2021-06-13 17:10 | Outpatient (REF) | payer MEDICARE, OTHER, SELFPAY ==
[2021-06-13 17:56] LABS: TSH (W/Ref FT4) 1.15 uIU/mL (0.36-3.74)
== END 2021-06-13 17:11 | disposition home or self-care (01) ==
LOC: NCHCN 17:10
PROVIDERS: PCP Nurse Practitioner Family; Visit Provider Nurse Practitioner Family
DX: E03.9 Hypothyroidism, unspecified (principal); I10 Essential (primary) hypertension
CPT/HCPCS: 84443

== ENCOUNTER 2022-03-12 13:35 | Outpatient (REF) | payer MEDICARE, OTHER, SELFPAY ==
[2022-03-12 21:34] LABS: Bilirubin Negative (Negative); Blood Small (Negative); Clarity Cloudy (Clear); Glucose Negative (Negative); Ketones Negative (Negative); Leukocyte Esterase Moderate (Negative); Nitrite Negative (Negative); Urobilinogen 0.2 EU/dL (Up TO 0.2); pH 5.5 (5-8)
[2022-03-12 22:30] LABS: Bacteria Few HPF (Negative); C & S Indicated? Yes; Crystals Negative HPF (Negative); Epithelial Cells Few HPF (Negative); Mucus Negative (Negative); RBC Negative HPF (0-2); WBC >50 HPF (0-5)
== END 2022-03-12 13:36 | disposition home or self-care (01) ==
LOC: NCHCN 13:35
PROVIDERS: PCP Nurse Practitioner Family; Visit Provider Family Medicine
DX: R30.0 Dysuria (principal)
CPT/HCPCS: 81003; 81015; 87086

== ENCOUNTER 2022-03-28 12:57 | Outpatient (CLI) | payer MEDICARE, OTHER, BC, SELFPAY ==
--- NOTE | 2022-03-28 10:45 | DI.RAD_ITS ---
Exam(s) XR CHEST 2V PA LATERAL EXAM: XR CHEST 2V PA LATERALzzz CLINICAL HISTORY: COUGH R05.8, FOR OVER 1 WEEK, ? DEVELOPING PNEUMONIA TECHNIQUE: 2D digital imaging was performed. COMPARISON: CR XR CHEST 2V PA LATERAL from 02/14/2019 FINDINGS: HEART: Normal size. Aorta: Mildly tortuous. PULMONARY VASCULATURE: Normal. LUNGS: Clear. PLEURAL SPACE: No pleural effusion or pneumothorax. BONE:Prominent degenerative disc changes. IMPRESSION: No acute abnormality. DATA REPOSITORY: RADIATION DOSE DELIVERED:
== END 2022-03-28 13:17 ==
PROVIDERS: PCP Nurse Practitioner Family; Visit Provider Physician Assistant Medical
DX: R05.8 Other specified cough (principal)
CPT/HCPCS: 71046

== ENCOUNTER 2022-05-27 02:56 | Emergency (ER) | payer MEDICARE, BC, OTHER, SELFPAY ==
[2022-05-27] VITALS (12 sets, daily range): BP systolic 89–169; BP diastolic 46–68; PULSE 80–106; RESP 18–28; TEMP 36.8–37.1; O2SAT 95–96
--- NOTE | 2022-05-27 03:00 | RT.EKG_ITS ---
APPROVED REPORT Exam: Resting ECG Reason for Exam: short of breath Patient Location: E HR:97 bpm ECG Measurements Heart Rate 97 AXIS PA 125 P 43 QRSd 78 QRS 0 QT 341 T 34 QTc 433 Conclusion Sinus rhythm...normal P axis, V-rate 60- 99 Probable left atrial enlargement...P >50mS, <-0.10mV V1 Low voltage, precordial leads...precordial leads <1.0mV Physician: no stemi
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
[2022-05-27] MEDS: ACETAMINOPHEN 1,000 MG/100 ML BTL 400 MG IVPB (03:16)
[2022-05-27] MEDS: Normal Saline 1,000 ML 150 ML IV (03:16)
[2022-05-27 03:34] LABS: Abs Immature Grans 0.14 10^3/uL (0.0-0.06); Absolute Basophil Count 0.08 10^3/uL (0.0-0.2); Absolute Eosinophil Count 0.25 10^3/uL (0.0-0.7); Absolute Lymphocyte Count 0.92 10^3/uL (1.2-3.4); Absolute Monocyte Count 0.79 10^3/uL (0.1-0.8); Absolute Neutrophil Count 7.94 10^3/uL (1.2-6.7); Basophils % 0.8; Eosinophils % 2.5; HCT 39.3 % (36.0-46.0); HGB 13.2 g/dL (11.2-15.7); Immature Grans % 1.4; Lymphocytes % 9.1; MCHC 33.6 % (32.0-36.0); MCV 83 fL (80-95); MPV 9.1 fL (8.0-11.0); Monocytes % 7.8; Neutrophils % 78.4; Platelet Count 264 10^3/uL (130-400); RBC 4.72 10^6/uL (3.93-5.22); RDW 12.7 % (11.7-14.6); RDW-SD 38.6 fL; WBC 10.12 10^3/uL (4.4-10.8)
[2022-05-27 03:37] LABS: PTT Activated 26.3 sec (21.5-31.9); Prothrombin Time 10.3 sec (9.3-11.0)
--- NOTE | 2022-05-27 03:45 | DI.CT_ITS ---
Exam(s) CT CHEST PE CTA EXAM: CT CHEST PE CTA CLINICAL HISTORY: right chest pain, r/o PE. TECHNIQUE: Imaging Protocol: CT angiography of the chest was performed using pulmonary embolus starla col. Multi planar reconstructions were performed. CONTRAST MATERIAL: Intravenous: Omnipaque 350 Contrast volume: 100 cc COMPARISON: CT CT ABDOMEN PELVIS W from 04/20/2020 FINDINGS: CHEST: Mild motion artifact. PULMONARY ARTERIES: There are no intraluminal filling defects to suggest acute pulmonary emboli. LUNGS: There is mild infiltrate in the posterior segment of the right upper lobe contiguous with the upper aspect of the major fissure. Mild increased markings also noted in the medial aspect of the jaffe perior segment the right lower lobe. No pleural effusion. No significant infiltrate in the opposite -left lung and no left pleural effusion. No focal findings in the trachea mainstem bronchi. MEDIASTINUM: No obvious hilar nor mediastinal adenopathy. CARDIAC: Heart size is upper normal. There is no pericardial effusion.Caliber of the thoracic aorta is within normal limits. No dissection. There is no significant shift of the interventricular septum . PARTIALLY VISUALIZED UPPERMOST ABDOMEN: No obvious findings OSSEOUS: No significant osseous lesions.No fractures.. IMPRESSION: 1. No evidence of acute pulmonary emboli. No evidence of pulmonary infarction.No pleural effusions. 2. However, there is infectious appearing infiltrate in the posterior segment of the right upper lobe and superior segment of the right lower lobe. No infiltrates in the opposite-left lung. No pleural effusions on either side. RADIATION DOSE DELIVERED: 333.77mGy.cm Total DLP DATA REPOSITORY: All CT scans at this facility are submitted to the National Radiology Data Registry (NRDR) Dose Index Registry (DIR) with the [employer] (A[employer]). RADIATION OPTIMIZATION: All CT scans at this facility use at least one of these dose optimization te chniques: automated exposure control; mA and/or kV adjustment per patient size (includes targeted exa ms where dose is matched to clinical indication); or iterative reconstruction.
[2022-05-27 03:49] LABS: ALT 15 U/L (14-59); AST 14 U/L (15-37); Albumin 3.3 g/dL (3.4-5.0); Alkaline Phosphatase 83 U/L (46-116); Anion Gap 8.9 mmol/L (3-11); BUN 8 mg/dL (7-18); Bilirubin, Total 0.7 mg/dL (0.2-1.0); CO2 28.1 mmol/L (21.0-32.0); CREATININE 0.9 mg/dL (0.55-1.02); Calcium 8.7 mg/dL (8.5-10.1); Chloride 103 mmol/L (98-107); Estimated GFR 64.23 (mL/min/1.73m2); Glucose 173 mg/dL (74-106); Lipase 17 U/L (16-77); NT-proBNP 217 pg/mL (<300); Potassium 3.8 mmol/L (3.5-5.1); Sodium 140 mmol/L (136-145); Total Protein 7.1 g/dL (6.4-8.2); Troponin I < 50 ng/L (<or=60)
[2022-05-27 04:00] LABS: COVID-19 PCR Negative (Negative); Influenza A PCR Negative (Negative); Influenza B PCR Negative (Negative); RSV PCR Negative (Negative)
[2022-05-27] MEDS: Omnipaque 350 MG/ML 100 ML BTL IJ (04:05)
[2022-05-27] MEDS: Normal Saline - Diluent 50 ML VIAL IJ (04:06)
[2022-05-27] MEDS: Normal Saline Flush 10 ML SYR IVP (04:06)
[2022-05-27 04:14] LABS: Source Nasopharynx
[2022-05-27] MEDS: levoFLOXacin 750 MG/150 ML BAG 100 MG IVPB (05:02)
--- NOTE | 2022-05-27 06:24 | DI.VRAD_ITS ---
PROCEDURE INFORMATION: Exam: CTA Chest With Contrast Exam date and time: 05/27/2022 4:08 AM Age: 81 years old Clinical indication: Right-sided; Patient HX: R sided chest pain, R/O pe TECHNIQUE: Imaging protocol: Computed tomographic angiography of the chest with contrast. 3D rendering (Not supervised by radiologist): MIP and/or 3D reconstructed images were created by the technologist. Radiation optimization: All CT scans at this facility use at least one of these dose optimization techniques: automated exposure control; mA and/or kV adjustment per patient size (includes targeted exams where dose is matched to clinical indication); or iterative reconstruction. Contrast material: OMNIPAQUE 350; Contrast volume: 65 ml; Contrast route: INTRAVENOUS (IV); COMPARISON: CT CHEST PE CTA 02/14/2019 2:37 PM FINDINGS: Limitations: Mild motion artifact. Pulmonary arteries: No pulmonary embolus is appreciated. Aorta: No thoracic aortic aneurysm seen. Lungs: There are areas of consolidation in the right upper and lower lobes. Mild peribronchial thickening. Nonspecific ground-glass opacities in both lungs. Pleural spaces: No pleural effusion. Heart: Mild cardiomegaly. Coronary arteries: Coronary artery calcifications. Mediastinal space: Mild esophageal thickening. Lymph nodes: Nonspecific mediastinal and hilar lymph nodes. Diaphragm: Small hiatal hernia. Gallbladder and bile ducts: Cholecystectomy. Bones/joints: No acute pertinent abnormality seen. Soft tissues: No acute pertinent abnormality seen. IMPRESSION: 1. No pulmonary embolus is appreciated. 2. Consolidation in the right lung most consistent with pneumonia. Follow-up to resolution advised. 3. Mild esophageal thickening. Cannot exclude esophagitis. Please correlate clinically. 4. Additional findings as above. Dictated and Authenticated by: Iram Thompson MD. Ordering:MARLA Rea MD
[2022-05-27 06:33] LABS: Troponin I < 50 ng/L (<or=60)
--- NOTE | 2022-05-29 07:55 | NUR.NOTE ---
Nursing Note:Accessed chart to determine orders for EKG. EKG needs to be read.
== END 2022-05-27 06:53 | disposition home or self-care (01) ==
PROVIDERS: Emergency Provider Student in an Organized Health Care Education/Training Program; PCP Nurse Practitioner Family
DX: J18.9 Pneumonia, unspecified organism (principal); J44.9 Chronic obstructive pulmonary disease, unspecified; Z20.822 Contact with and (suspected) exposure to COVID-19; R06.02 Shortness of breath
CPT/HCPCS: 36415; 71275; 80053; 83690; 87637; 93005; 96361; 96365; 96375; 99284; 99285; 83880; 84484; 85025; 85610; 85730; 93010; J0131; J1956; J3490

== ENCOUNTER 2022-09-15 10:47 | Outpatient (REF) | payer MEDICARE, OTHER, SELFPAY ==
[2022-09-15 17:44] LABS: Glucose 108 mg/dL (74-106); TSH (W/Ref FT4) 8.35 uIU/mL (0.36-3.74)
[2022-09-15 20:15] LABS: FREE T4 0.67 ng/dL (0.76-1.46)
== END 2022-09-15 10:48 | disposition home or self-care (01) ==
LOC: NCHCN 10:47
PROVIDERS: PCP Nurse Practitioner Family; Visit Provider Family Medicine
DX: M25.571 Pain in right ankle and joints of right foot (principal); E03.9 Hypothyroidism, unspecified; F43.81 Prolonged grief disorder
CPT/HCPCS: 82947; 84439; 84443

== ENCOUNTER 2022-09-16 01:30 | Outpatient (CLI) | payer MEDICARE, OTHER, BC, SELFPAY ==
--- NOTE | 2022-09-16 | DI.RAD_ITS ---
Exam(s) XR ANKLE RT COMPLETE EXAM: XR ANKLE RT COMPLETE CLINICAL HISTORY: RT ANKLE PAIN, M25.571. TECHNIQUE: 2D digital imaging was performed. Three views. COMPARISON: No exams were available for comparison FINDINGS: BONES: No acute fracture is present. No bony destructive lesion is seen. Mild spurring at the malleo li. Prominent plantar calcaneal spur. Small cystic area in the medial talar dome arm is consistent with a degenerative subchondral cyst. JOINTS: The ankle mortise is normally aligned. SOFT TISSUE: Normal. IMPRESSION: Prominent plantar calcaneal spur. Mild degenerative changes. DATA REPOSITORY: RADIATION DOSE DELIVERED:
== END 2022-09-16 01:50 ==
PROVIDERS: PCP Nurse Practitioner Family; Visit Provider Family Medicine
DX: M77.31 Calcaneal spur, right foot (principal); M19.071 Primary osteoarthritis, right ankle and foot
CPT/HCPCS: 73610

== ENCOUNTER 2022-11-28 11:41 | Emergency (ER) | payer MEDICARE, OTHER, BC, SELFPAY ==
[2022-11-28] VITALS (10 sets, daily range): BP systolic 123–199; BP diastolic 67–115; PULSE 74–96; RESP 20; TEMP 36.7; O2SAT 95–100
--- NOTE | 2022-11-28 12:00 | DI.RAD_ITS ---
Exam(s) XR SHOULDER LT COMPLETE 2+V EXAM: XR SHOULDER LT COMPLETE 2+V CLINICAL HISTORY: pain s/p fall. TECHNIQUE: 2D digital imaging was performed of the left shoulder. Five images were obtained. AP, G rashey, Y-view and axillary views were obtained. COMPARISON: No exams were available for comparison FINDINGS: BONES: No acute fracture is present. No bony destructive lesion is seen. JOINTS: No dislocation present. There are degenerative changes at the acromioclavicular and glenohume ral joints. SOFT TISSUE: Normal. IMPRESSION: No acute fractures or dislocations. DATA REPOSITORY: RADIATION DOSE DELIVERED:
--- NOTE | 2022-11-28 12:00 | DI.RAD_ITS ---
Exam(s) XR LUMBAR SPINE COMPLETE EXAM: XR LUMBAR SPINE COMPLETE CLINICAL HISTORY: pain s/p fall. TECHNIQUE: 2D digital imaging was performed of the lumbar spine. Five images were obtained. AP, la teral, right oblique, left oblique and L5-S1 spot views were obtained. COMPARISON: No exams were available for comparison FINDINGS: BONES: No fracture or destructive lesion. There are endplate osteophytes at multiple levels of the moose mbar spine. Degenerative facet disease is seen at L4-5 and L5-S1. DISKS: There is disc space narrowing seen at L2-3, L3-4 and L4-L5. ALIGNMENT: There is mild anterolisthesis of L4 on L5 which is likely degenerative in nature. No spon dylolysis or spondylolisthesis. SOFT TISSUE: Atherosclerosis. IMPRESSION: 1. No acute fracture or subluxation. 2. Degenerative changes in the lumbar spine. DATA REPOSITORY: RADIATION DOSE DELIVERED:
--- NOTE | 2022-11-28 12:00 | DI.RAD_ITS ---
Exam(s) XR FEMUR LT EXAM: XR FEMUR LT CLINICAL HISTORY: pain s/p fall. TECHNIQUE: 2D digital imaging was performed of the left femur. Four images were obtained. AP and lat eral views were obtained. COMPARISON: No exams were available for comparison FINDINGS: BONES: No acute fracture is present. No bony destructive lesion is seen. Visualized portion of knee a nd hip joints are unremarkable. SOFT TISSUE: Normal. IMPRESSION: No acute fracture or dislocation. DATA REPOSITORY: RADIATION DOSE DELIVERED:
--- NOTE | 2022-11-28 12:03 | W.ED.GENAD ---
Discharge Plan Disposition Patient Disposition: Home Condition: Stable Discharge Details Clinical Impression: Contusion of left shoulder, Contusion of hip, left, Lumbar contusion Primary Care Provider: Doretha Resendiz ED Provider: Richard Aragon Home Meds and New Rx's Prescriptions: Continued Spiriva Respimat 2.5 mcg/actuation mist 2 inh inhalation BID acetaminophen [Tylenol Arthritis Pain] 650 mg tablet extended release 650 mg PO Q12H ramipril 5 mg capsule 5 mg PO DAILY levothyroxine 25 mcg Tablet 25 mcg PO DAILY levofloxacin 750 mg tablet 750 mg PO DAILY Qty: 10 0RF cetirizine [Zyrtec] 10 mg Tablet 10 mg PO DAILY PRN albuterol sulfate [ProAir HFA] 90 mcg/actuation Hfa Aerosol Inhaler 2 puff INHALATION Q6H PRN coenzyme Q10 [CoQ-10] 30 mg Capsule 30 mg PO DAILY diazepam 5 mg Tablet 5 mg PO DAILY PRN (Reason: Anxiety) aspirin 325 mg Capsule PO diclofenac sodium 3 % gel 1 applic topical BID Qty: 100 0RF Discharge Instructions Instructions: Contusion in Adults (ED) Additional Instructions: your xrays did not show concerning findings follow up with your primary care provider within 1-2 weeks if you feel more ill, have severe worsening pain or new symptoms such as difficulty breathing return to the emergency department Medical Decision Making 82 yo female comes in with one month of left hip pain. She says it started after she fell a month ago, she was about to walk up stairs and on the first step tripped and landed forward on her left hip and harm, no loc or head trauma. She's had left hip pain with ambulation and left shoulder pain since then. No fevers, chills, headaches, neck pain, upper back pain, has had some lower back pain. No chest or abdomen pain. She arrives stable, caox4 in no distress. She has no signs of trauma to the head. No midline c spine, chest or abdomen tenderness. No t spine tenderness, has mild l3/l4 tenderness, no stepoffs or deformity. Has tendernes sin the left hip, none in the mid/distal femur, knee, tib/fib, ankle or foot with intact distal sensation. Does have good rom of the hip. Has tenderness over lateral left shoulder with full rom, intact distal sensation, no tenderness elsewhere in the arm. suspect contusions of the hip, l spine and left shoulder but will obtain xrays to evaluate for fractures. xray's unremarkable, pt stable with no new pain. Suspect contusions and also has evidence of degenerative disease of her back and joints. Stable for d/c, advised to f/u with pcp and return precautions. Is able to bear weight so doubt missed hip fracture on xray Differential Diagnosis Differential Diagnosis: fracture, contusion, sprain, Imaging Data Radiologic Study: Attestation: I personally reviewed and interpreted this imaging study as follows: Imaging: X-Ray Radiologist's impression: no acute findings lumbar spine xray Radiologic Study #2: Attestation: I personally reviewed and interpreted this imaging study as follows: Imaging: X-Ray Radiologist's impression: no acute findings shoulder xray Radiologic Study #3: Attestation: I personally reviewed and interpreted this imaging study as follows: Imaging: X-Ray Radiologist's impression: no acute findings femur xray HPI General Mode of arrival: ambulatory. Date/Time Provider Initiated Documentation: 11/28/22 11:42. Limitations to Documentation: no limitations. Information obtained by: patient. History of Present Illness 82 year old F presents to the emergency department with the chief complaint of left hip pain, described as moderate, Patient started experiencing this month(s) (1) and it has been constant. Rest improves symptom(s), Patient notes denies fever/chills, nausea/vomiting and shortness of breath. Patient did receive the following treatments prior to arrival, none Related Data Home Medications Medication Instructions Recorded Confirmed albuterol sulfate 90 mcg/actuation 2 puff inhalation Q6H PRN 02/14/19 04/20/20 aerosol inhaler (ProAir HFA) cetirizine 10 mg tablet (Zyrtec) 10 mg PO DAILY PRN 02/14/19 12/06/20 coenzyme Q10 30 mg capsule (CoQ-10) 30 mg PO DAILY 02/14/19 04/20/20 diazepam 5 mg tablet 5 mg PO DAILY PRN Anxiety 02/14/19 04/20/20 acetaminophen 650 mg 650 mg PO Q12H 08/26/19 12/06/20 tablet,extended release (Tylenol Arthritis Pain) ramipril 5 mg capsule 5 mg PO DAILY 12/09/19 12/06/20 levothyroxine 25 mcg tablet 25 mcg PO DAILY 04/20/20 12/06/20 aspirin 325 mg capsule mg PO 12/06/20 diclofenac sodium 3 % topical gel 1 applic topical BID #100 grams 12/06/20 tiotropium bromide 2.5 2 inh inhalation BID 12/25/20 12/25/20 mcg/actuation mist for inhalation (Spiriva Respimat) levofloxacin 750 mg tablet 750 mg PO DAILY #10 tabs 05/27/22 Previous Rx's Medication Instructions Recorded diclofenac sodium 3 % topical gel 1 applic topical BID #100 grams 12/06/20 levofloxacin 750 mg tablet 750 mg PO DAILY #10 tabs 05/27/22 Allergies Allergy/AdvReac Type Severity Reaction Status Date / Time Sulfa (Sulfonamide Allergy Intermediate HIVES,HEADA Verified 12/25/20 10:08 Antibiotics) LIAS sulfamethoxazole Allergy Intermediate HIVES, Verified 12/25/20 10:08 [From Bactrim] HEADACHE trimethoprim [From Bactrim] Allergy Intermediate HIVES, Verified 12/25/20 10:08 HEADACHE lisinopril AdvReac Severe HEADACES Verified 12/25/20 10:08 General Stated Complaint: Fall/Non TraumaCriteria VITOR: 3 Review of Systems All systems reviewed & are unremarkable except as noted in HPI and below Constitutional Constitutional: Denies chills, Denies fever(s) and Denies weakness Cardiovascular Cardiovascular: Denies chest pain and Denies dyspnea Respiratory Respiratory: Denies cough and Denies dyspnea Gastrointestinal Gastrointestinal: Denies abdominal pain, Denies nausea and Denies vomiting Integumentary/Breasts Skin/Breast: Denies rash Neurologic Neurologic: Denies weakness PFSH All Active Problems (Updated 11/28/22 @ 13:14 by Richard Aragon MD) Contusion of left shoulder (Acute) Contusion of hip, left (Acute) Lumbar contusion (Acute) Osteoarthritis of carpometacarpal (CMC) joint of left thumb (Acute) Acute wrist pain (Acute) Non-healing surgical wound (Acute) S/P hernia repair (Acute) Postoperative hematoma (Acute) Diverticular disease of large intestine (Acute) History of open sigmoidectomy (Acute) for diverticular dx Hypothyroid (Chronic) Hypertension (Chronic) Hyperlipidemia (Acute) COPD (chronic obstructive pulmonary disease) (Chronic) pt. questions this Medical History Abdominal pain Allergic rhinitis Anxiety Cervicalgia Colonic polyp Depressive disorder Headache Inguinal hernia hx of 3 hernia repairs @ [facility] Insomnia Nonsustained ventricular tachycardia F/U with PCP regularly 12/07/19 Osteoarthritis of left hand Surgical History H/O detached retina repair @ [facility] H/O ventral hernia repair (~01/30/20) Dr. Ruano H/O: hysterectomy History of cholecystectomy History of colectomy (~07/12/10) [facility] History of colonoscopy 2000 3 year recall 2002 5 year recall ?? tubular adenoma & hyperplastic polyps [facility] 12/10/2010 History of hernia repair 1993- [facility] 10/28/2012 [facility] September 08, 2013 [facility] Hx of appendectomy Social History Smoking/Tobacco Use Status: Never Smoking risk assessment performed?: Yes Alcohol Intake: current Alcohol Intake frequency: holidays/special occasions only Drug use: Never Substance use type: does not use Housing: house Current gender identity: female Do you feel safe at home: Yes Do you feel safe in your relationship?: Yes Exam Const General: no acute distress Orientation: alert HENDC Head: normal to inspection Ears: external ears normal General nose exam: external nose normal Mouth: moist mucous membranes Eyes General: appearance normal, both eyes and all related structures Neck Neck: normal visual inspection, full ROM and nontender Chest Chest: no tenderness Resp Effort & Inspection: normal respiratory effort and able to speak in complete sentences Cardio Rate: regular rate GI Palpation: soft and nontender Back/Spine/Pelvis Back: no CVA tenderness Thoracic/Lumbar Spine: No thoracic spinal tenderness and lumbar spinal tenderness Skin General skin exam: no rashes or lesions noted Neuro General: patient alert and patient oriented x3 Extrem General: normal to inspection, full ROM and capillary refill normal Psych Mental Status: mental status grossly normal Course Vital Signs Vital signs: Vital Signs Temperature 36.7 C 11/28/22 11:44 Pulse 89 11/28/22 11:44 Respiratory Rate 20 11/28/22 11:44 Blood Pressure 148/81 H 11/28/22 11:44 Pulse Oximetry 97 11/28/22 11:44 Temperature 36.7 C 11/28/22 11:44 Temperature Source Oral 11/28/22 11:44 Pulse 89 11/28/22 11:44 Respiratory Rate 20 11/28/22 11:44 Respiratory Effort Normal 11/28/22 11:53 Blood Pressure 148/81 H 11/28/22 11:44 Blood Pressure Position Sitting 11/28/22 11:44 Pulse Oximetry 97 11/28/22 11:44 Oxygen Delivery Method Room Air 11/28/22 11:44 Oxygen Flow Rate 0 11/28/22 11:44 Pain Level 10 11/28/22 11:44
[2022-11-28] MEDS: Ibuprofen 600 MG TAB PO (12:06)
== END 2022-11-28 14:45 | disposition home or self-care (01) ==
PROVIDERS: Emergency Provider Emergency Medicine; PCP Nurse Practitioner Family
DX: S40.012A Contusion of left shoulder, initial encounter (principal); S70.02XA Contusion of left hip, initial encounter; S30.0XXA Contusion of lower back and pelvis, initial encounter; M47.817 Spondylosis without myelopathy or radiculopathy, lumbosacral region; W01.0XXA Fall on same level from slipping, tripping and stumbling without subsequent striking against object, initial encounter; Y93.01 Activity, walking, marching and hiking; Y92.89 Other specified places as the place of occurrence of the external cause; Y99.9 Unspecified external cause status
CPT/HCPCS: 73552; 99283; 72110; 73030

== ENCOUNTER → 2022-12-01 16:27 | Outpatient (CLI) | payer MEDICARE, OTHER, BC, SELFPAY ==
--- NOTE | 2022-12-01 14:55 | DI.CT_ITS ---
Exam(s) CT LOWER EXTREMITY LT WO EXAM: CT LOWER EXTREMITY LT WO CLINICAL HISTORY: LEFT HIP PAIN M25.552. TECHNIQUE: Imaging Protocol: Axial computed tomography images with coronal and sagittal reformatted images were created and reviewed. CONTRAST MATERIAL: Intravenous: None COMPARISON: Recent plain films reviewed. FINDINGS: OSSEOUS: There is no evidence of left hip fracture. Mild degenerative changes in left hip noted. Th ere are degenerative subarticular cysts in the anterosuperior acetabulum. There is a benign synovial pit in the superior aspect of the left femoral head-neck junction. This measures 10 x 8 mm. Some c alcification is noted in the superior labrum. no ominous osseous lesions. Also no fractures evident in the left hemipelvis. IMPRESSION: As above but no evidence of left hip fracture. RADIATION DOSE DELIVERED: 186.83mGy.cm Total DLP DATA REPOSITORY: All CT scans at this facility are submitted to the National Radiology Data Registry (NRDR) Dose Index Registry (DIR) with the [employer] ([employer]). RADIATION OPTIMIZATION: All CT scans at this facility use at least one of these dose optimization te chniques: automated exposure control; mA and/or kV adjustment per patient size (includes targeted exa ms where dose is matched to clinical indication); or iterative reconstruction.
== END ==
PROVIDERS: PCP Nurse Practitioner Family; Visit Provider Family Medicine
DX: M25.552 Pain in left hip (principal)
CPT/HCPCS: 73700

== ENCOUNTER → 2023-02-02 20:37 | Outpatient (CLI) | payer MEDICARE, OTHER, BC, SELFPAY ==
--- NOTE | 2023-02-02 11:56 | DI.RAD_ITS ---
Exam(s) XR SHOULDER RT COMPLETE 2+V EXAM: XR SHOULDER RT COMPLETE 2+V CLINICAL HISTORY: RT SHOULDER JOINT PAIN M25.511. TECHNIQUE: 2D digital imaging was performed. COMPARISON: CR XR SHOULDER LT COMPLETE 2+V from 11/28/2022 FINDINGS: Five views. No evidence of fracture or dislocation nor diminution of the subacromial space and there are no soft tissue calcifications in the subacromial space. There is moderate degenerative change in the glenohumeral joint. There is a moderate size osteophyte on the inferior articular surface of the humeral head. Small calcific density is seen adjacent to t he inferior aspect of the osseous glenoid. This measures 1-2 mm. There are mild degenerative change s in the AC joint. Coracoid process appears intact. IMPRESSION: Moderate degenerative changes in the glenohumeral joint. DATA REPOSITORY: RADIATION DOSE DELIVERED:
== END ==
PROVIDERS: PCP Nurse Practitioner Family; Visit Provider Family Medicine
DX: M19.011 Primary osteoarthritis, right shoulder (principal)
CPT/HCPCS: 73030

== ENCOUNTER 2023-04-09 15:16 | Outpatient (REF) | payer MEDICARE, OTHER, BC, SELFPAY ==
[2023-04-09 20:51] LABS: Abs Immature Grans 0.03 10^3/uL (0.0-0.06); Absolute Basophil Count 0.07 10^3/uL (0.0-0.2); Absolute Eosinophil Count 0.17 10^3/uL (0.0-0.7); Absolute Lymphocyte Count 1.32 10^3/uL (1.2-3.4); Absolute Monocyte Count 0.64 10^3/uL (0.1-0.8); Absolute Neutrophil Count 4.84 10^3/uL (1.2-6.7); Eosinophils % 2.4; HCT 44.5 % (36.0-46.0); HGB 14.6 g/dL (11.2-15.7); Immature Grans % 0.4; Lymphocytes % 18.7; MCH 27.3 pg (27.0-33.0); MCHC 32.8 % (32.0-36.0); MCV 83 fL (80-95); MPV 9.6 fL (8.0-11.0); Monocytes % 9.1; Neutrophils % 68.4; Platelet Count 339 10^3/uL (130-400); RBC 5.34 10^6/uL (3.93-5.22); RDW 13.4 % (11.7-14.6); WBC 7.07 10^3/uL (4.4-10.8)
[2023-04-09 21:08] LABS: ALT 15 U/L (14-59); AST 14 U/L (15-37); Albumin 3.6 g/dL (3.4-5.0); Alkaline Phosphatase 76 U/L (46-116); Anion Gap 9.7 mmol/L (3-11); BUN 15 mg/dL (7-18); Bilirubin, Total 0.4 mg/dL (0.2-1.0); CO2 29.3 mmol/L (21.0-32.0); CREATININE 0.7 mg/dL (0.55-1.02); Calcium 9.4 mg/dL (8.5-10.1); Chloride 104 mmol/L (98-107); Glucose 88 mg/dL (74-106); Potassium 4.9 mmol/L (3.5-5.1); Sodium 143 mmol/L (136-145); TSH 0.66 uIU/mL (0.36-3.74)
== END 2023-04-09 15:17 | disposition home or self-care (01) ==
LOC: NCHCN 15:16
PROVIDERS: PCP Nurse Practitioner Family; Visit Provider Family Medicine
DX: I10 Essential (primary) hypertension (principal); E03.9 Hypothyroidism, unspecified
CPT/HCPCS: 80053; 84443; 85025

== ENCOUNTER 2023-08-04 09:27 | Emergency (ER) | payer MEDICARE, OTHER, BC, SELFPAY ==
[2023-08-04] VITALS (33 sets, daily range): BP systolic 80–203; BP diastolic 54–104; PULSE 71–96; RESP 13–24; TEMP 36.9; O2SAT 95–99
--- NOTE | 2023-08-04 09:30 | RT.EKG_ITS ---
APPROVED REPORT Exam: Resting ECG Reason for Exam: Arm Tingling Patient Location: E HR:75 bpm ECG Measurements Heart Rate 75 AXIS MT 141 P 36 QRSd 78 QRS -18 QT 404 T 13 QTc 452 Conclusion Sinus rhythm...normal P axis, V-rate 60- 99 sinus rhythm, left axis, normal intervals, non ischemic
--- NOTE | 2023-08-04 09:52 | ED.GENADUL_ITS ---
Discharge Plan Disposition Patient Disposition: Home Condition: Stable Discharge Details Clinical Impression: Back pain Primary Care Provider: Doretha Resendiz ED Provider: Rosanna Mccabe Home Meds and New Rx's Prescriptions: New lidocaine 5 % adhesive patch,medicated 1 patch topical DAILY Qty: 15 0RF Rx Instructions: leave on most painful area for up to 12 hrs Continued Spiriva Respimat 2.5 mcg/actuation mist 2 inh inhalation BID acetaminophen [Tylenol Arthritis Pain] 650 mg tablet extended release 650 mg PO Q12H ramipril 5 mg capsule 5 mg PO DAILY levothyroxine 25 mcg Tablet 25 mcg PO DAILY cetirizine [Zyrtec] 10 mg Tablet 10 mg PO DAILY PRN albuterol sulfate [ProAir HFA] 90 mcg/actuation Hfa Aerosol Inhaler 2 puff INHALATION Q6H PRN coenzyme Q10 [CoQ-10] 30 mg Capsule 30 mg PO DAILY diazepam 5 mg Tablet 5 mg PO DAILY PRN (Reason: Anxiety) aspirin 325 mg Capsule 325 mg PO PRN diclofenac sodium 3 % gel 1 applic topical BID Qty: 100 0RF Discharge Instructions Instructions: Back Pain (ED) Additional Instructions: No evidence of heart attack, blood clots in your lungs or acute cardiopulmonary abnormality at this time. I did add on a tick and Lyme panel to your labs which will come back in approximately 2 to 3 days. Please follow-up with this with your primary care provider. Follow up with primary care provider in 3-5 days. Return to ED sooner if any worsening or concerns. Please take Tylenol or Ibuprofen with food every 4-6 hours as needed for pain and swelling. Please use the lidocaine patches once every 12 hours as directed. You may alternate ice and heat. Referrals: Doretha Resendiz [Primary Care Provider] - 3 days Discharge Data Discharge Date/Time-TO BE ENTERED AT DEPARTURE: 08/04/23 13:27 HPI General Mode of arrival: ambulatory . Date/Time Provider Initiated Documentation: 08/04/23 09:46 . Limitations to Documentation: no limitations . Information obtained by: patient, RN notes reviewed and old records reviewed . HPI Narrative: 83-year-old female presents to the ER with a chief complaint of left upper back pain that radiates into her left arm. She does have a circular red raised dry rash noted to her left upper back, does go into her shoulder blade radiates into her left arm. It waxes and wanes. The rash has been there for some months and was told it was dry skin. No other rash anywhere else. She does have a past medical history of hypertension, high cholesterol, nonsustained V. tach, anxiety depression. She has had a hernia repair, hysterectomy appendectomy and cholecystectomy. Lungs are clear to auscultation bilaterally. Related Data Home Medications Medication Instructions Recorded Confirmed albuterol sulfate 90 mcg/actuation 2 puff inhalation Q6H PRN 02/14/19 08/04/23 aerosol inhaler (ProAir HFA) cetirizine 10 mg tablet (Zyrtec) 10 mg PO DAILY PRN 02/14/19 08/04/23 coenzyme Q10 30 mg capsule (CoQ-10) 30 mg PO DAILY 02/14/19 08/04/23 diazepam 5 mg tablet 5 mg PO DAILY PRN Anxiety 02/14/19 08/04/23 acetaminophen 650 mg 650 mg PO Q12H 08/26/19 08/04/23 tablet,extended release (Tylenol Arthritis Pain) ramipril 5 mg capsule 5 mg PO DAILY 12/09/19 08/04/23 levothyroxine 25 mcg tablet 25 mcg PO DAILY 04/20/20 08/04/23 aspirin 325 mg capsule 325 mg PO PRN 12/06/20 08/04/23 diclofenac sodium 3 % topical gel 1 applic topical BID #100 grams 12/06/20 08/04/23 tiotropium bromide 2.5 2 inh inhalation BID 12/25/20 08/04/23 mcg/actuation mist for inhalation (Spiriva Respimat) lidocaine 5 % topical patch 1 patch topical DAILY #15 ea 08/04/23 Previous Rx's Medication Instructions Recorded diclofenac sodium 3 % topical gel 1 applic topical BID #100 grams 12/06/20 lidocaine 5 % topical patch 1 patch topical DAILY #15 ea 08/04/23 Allergies Allergy/AdvReac Type Severity Reaction Status Date / Time Sulfa (Sulfonamide Allergy Intermediate HIVES,HEADA Verified 08/04/23 09:46 Antibiotics) LISA sulfamethoxazole Allergy Intermediate HIVES, Verified 08/04/23 09:46 [From Bactrim] HEADACHE trimethoprim [From Bactrim] Allergy Intermediate HIVES, Verified 08/04/23 09:46 HEADACHE lisinopril AdvReac Severe HEADACES Verified 08/04/23 09:46 General Stated Complaint: Nk/Back Pain VITOR: 3 Review of Systems All systems reviewed & are unremarkable except as noted in HPI and below Cardiovascular Cardiovascular: Reports as per HPI, Reports chest pain and Denies dyspnea Respiratory Respiratory: Denies dyspnea Integumentary/Breasts Skin/Breast: Reports rash (Left upper back) Exam Narrative Exam Narrative: Constitutional: Alert and oriented x3. Appears stated age. Normal body habitus. Head: Normocephalic, no trauma. Eyes: Pupils PERRL, Red reflex noted, EOM's intact. Eyelids symmetrical without lesions, discharge, or swelling. ENT: Bilateral TM's WNL, External ear normal to inspection, no mastoid TTP, swelling, or erythema, Nasal turbinates WNL, no nasal discharge. Normal dentition, Posterior pharynx WNL, no exudate. Chest: RRR, Normal S1, S2, distal pulses intact. Resp: Lungs clear to auscultation bilaterally, no wheezes, rales, or rhonchi. Abdomen: Soft, non-distended, Normoactive bowel sounds all 4 quads. Musculoskeletal: Normal gait, Moves all 4 extremities without difficulty. Skin: No suspicious rashes or lesions. Capillary refill less than 2 sec. Neurologic: Cranial nerves II-XII intact. Alert and oriented x 3. Motor: No deficits noted. Sensory: Intact bilaterally all 4 extremities. Hematologic/Lymphatic: No ecchymosis, no lymphadenopathy. Skin Rashes: rashes noted left posterior back size (8x10), arrangement annular, borders raised and irregular, color red and surface rough and scaly Course Vital Signs Vital signs: Vital Signs Pulse 76 08/04/23 09:40 Respiratory Rate 18 08/04/23 09:40 Blood Pressure 203/82 H 08/04/23 09:40 Pulse Oximetry 99 08/04/23 09:40 Pulse 76 08/04/23 09:40 Respiratory Rate 18 08/04/23 09:40 Blood Pressure 203/82 H 08/04/23 09:40 Blood Pressure Position Sitting 08/04/23 09:40 Pulse Oximetry 99 08/04/23 09:40 Oxygen Delivery Method Room Air 08/04/23 09:40 Oxygen Flow Rate 0 08/04/23 09:40 Pain Level 8 08/04/23 09:40 Medical Decision Making 83-year-old female presents to the ER with a chief complaint of left upper back pain that radiates into her left arm. She does have a circular red raised dry rash noted to her left upper back, does go into her shoulder blade radiates into her left arm. It waxes and wanes. The rash has been there for some months and was told it was dry skin. No other rash anywhere else. She does have a past medical history of hypertension, high cholesterol, nonsustained V. tach, anxiety depression. She has had a hernia repair, hysterectomy appendectomy and cholecystectomy. Lungs are clear to auscultation bilaterally. Cardiac workup ordered including serial troponins, D-dimer, tick and Lyme panel. Differential diagnosis does not to shingles, CAD, [place], pneumonia, will also order a chest x-ray. On patient reevaluation she is ambulatory to the bathroom. CBC shows no leukocytosis, D-dimer elevated at 2625, CMP largely within normal limits TSH is elevated at 6.38 T4 within normal limits tick panel pending at this time. CT shows no PE there is some increased lung markings on the right. CT x-ray of shoulder and chest x-ray results. At this time awaiting serial troponin at 1240 Serial troponin within normal limits. Patient states that she feels better since being here. Discussed home care, workup results and strict return instructions. Patient discharged in the care of her family. This text was generated using [employer] dictation system, please disregard any oddities of phrase or misspellings. Imaging Data Radiologic Study: Imaging: CT Scan Radiologist's impression: EXAM: CT CHEST PE CTA CLINICAL HISTORY: Elevated Dimer, Left side chest pain. TECHNIQUE: Imaging Protocol: CT angiography of the chest was performed using pulmonary embolus protocol. Multi planar reconstructions were performed. CONTRAST MATERIAL: Intravenous: Omnipaque 350 Contrast volume: 100 cc COMPARISON: CT CT CHEST PE CTA from 05/27/2022 FINDINGS: CHEST: PULMONARY ARTERIES: There are no intraluminal filling defects to suggest acute pulmonary emboli. LUNGS: Hypoventilation bilaterally.. Results in mild increased markings both lung coleman. Some mild infiltrate noted in the posterior segment of the right upper lobe and adjacent superior segment right lower lobe. There are no pleural effusions. MEDIASTINUM: There is no hilar nor mediastinal adenopathy. Visualized thyroid unremarkable. CARDIAC: Heart size is upper normal. There is no pericardial effusion.Caliber of the thoracic aorta is within normal limits. There is no evidence of aortic dissection. There is no significant shift of the interventricular septum. PARTIALLY VISUALIZED UPPERMOST ABDOMEN: No obvious findings OSSEOUS: No significant osseous lesions.No fractures evident.. IMPRESSION: 1. No evidence of acute pulmonary emboli. No evidence of pulmonary infarction.No pleural effusions. No intrathoracic adenopathy 2. Low bilateral lung volumes with increased markings in lung coleman as above. Lab Data Lab results reviewed: Yes I reviewed the patient's lab results. Labs: Laboratory Tests Range/Units 08/04/23 09:55 WBC (4.4-10.8) 10^3/uL 5.02 RBC (3.93-5.22) 10^6/uL 5.62 H Hgb (11.2-15.7) g/dL 15.5 Hct (36.0-46.0) % 47.0 H MCV (80-95) fL 84 MCH (27.0-33.0) pg 27.6 MCHC (32.0-36.0) % 33.0 RDW (11.7-14.6) % 13.4 Plt Count (130-400) 10^3/uL 268 MPV (8.0-11.0) fL 8.5 Immature Gran % % 0.2 Neutrophils % % 65.1 Lymphocytes % % 22.3 Monocytes % % 7.4 Eosinophils % % 3.4 Basophils % % 1.6 Nucleated RBC % (0.0-0.3) % 0.0 Absolute Neutrophils (1.2-6.7) 10^3/uL 3.27 Absolute Lymphocytes (1.2-3.4) 10^3/uL 1.12 L Absolute Monocytes (0.1-0.8) 10^3/uL 0.37 Absolute Eosinophils (0.0-0.7) 10^3/uL 0.17 Absolute Basophils (0.0-0.2) 10^3/uL 0.08 D-Dimer (<500) ng/mlFEU 2625 H Sodium (136-145) mmol/L 142 Potassium (3.5-5.1) mmol/L 4.3 Chloride (98-107) mmol/L 105 Carbon Dioxide (21.0-32.0) mmol/L 29.6 Anion Gap (3-11) mmol/L 7.4 BUN (7-18) mg/dL 11 Creatinine (0.55-1.02) mg/dL 0.7 Est GFR (CKD-EPI 2020) (mL/min/1.73m2) 85.76 Glucose (74-106) mg/dL 87 Calcium (8.5-10.1) mg/dL 9.3 Magnesium (1.8-2.4) mg/dL 2.0 Total Bilirubin (0.2-1.0) mg/dL 0.5 AST (15-37) U/L 16 ALT (14-59) U/L 20 Alkaline Phosphatase (46-116) U/L 90 Troponin I (< or =60) ng/L < 50 Total Protein (6.4-8.2) g/dL 7.9 Albumin (3.4-5.0) g/dL 4.0 TSH (0.36-3.74) uIU/mL 6.38 H Free T4 (0.76-1.46) ng/dL 0.84 Quality:[facility] Health Related Social Needs: No Data to Display PFSH All Active Problems (Updated 08/04/23 @ 13:07 by Rosanna Mccabe NP) Back pain (Acute) Osteoarthritis of carpometacarpal (CMC) joint of left thumb (Acute) Acute wrist pain (Acute) Non-healing surgical wound (Acute) S/P hernia repair (Acute) Postoperative hematoma (Acute) Diverticular disease of large intestine (Acute) History of open sigmoidectomy (Acute) for diverticular dx Hypothyroid (Chronic) Hypertension (Chronic) Hyperlipidemia (Acute) COPD (chronic obstructive pulmonary disease) (Chronic) pt. questions this Medical History Nonsustained ventricular tachycardia F/U with PCP regularly 12/07/19 Colonic polyp Abdominal pain Osteoarthritis of left hand Headache Cervicalgia Allergic rhinitis Insomnia Anxiety Depressive disorder Inguinal hernia hx of 3 hernia repairs @ [facility] Surgical History H/O ventral hernia repair (~01/30/20) Dr. Ruano History of colectomy (~07/12/10) [facility] History of hernia repair 1993- [facility] 10/28/2012 [facility] September 08, 2013 [facility] History of colonoscopy 2000 3 year recall 2002 5 year recall ?? tubular adenoma & hyperplastic polyps [facility] 12/10/2010 H/O detached retina repair @ [facility] H/O: hysterectomy Hx of appendectomy History of cholecystectomy Social History Smoking/Tobacco Use Status: Never Smoking risk assessment performed?: Yes Alcohol Intake: current Alcohol Intake frequency: holidays/special occasions only Drug use: Never Substance use type: does not use Housing: house Current gender identity: female Do you feel safe at home: Yes Do you feel safe in your relationship?: Yes
[2023-08-04 10:05] LABS: Abs Immature Grans 0.01 10^3/uL (0.0-0.06); Absolute Basophil Count 0.08 10^3/uL (0.0-0.2); Absolute Eosinophil Count 0.17 10^3/uL (0.0-0.7); Absolute Lymphocyte Count 1.12 10^3/uL (1.2-3.4); Absolute Monocyte Count 0.37 10^3/uL (0.1-0.8); Absolute Neutrophil Count 3.27 10^3/uL (1.2-6.7); Basophils % 1.6 %; Eosinophils % 3.4 %; HGB 15.5 g/dL (11.2-15.7); Immature Grans % 0.2 %; Lymphocytes % 22.3 %; MCH 27.6 pg (27.0-33.0); MCV 84 fL (80-95); MPV 8.5 fL (8.0-11.0); Monocytes % 7.4 %; Neutrophils % 65.1 %; Platelet Count 268 10^3/uL (130-400); RBC 5.62 10^6/uL (3.93-5.22); RDW 13.4 % (11.7-14.6); RDW-SD 40.8 fL; WBC 5.02 10^3/uL (4.4-10.8)
[2023-08-04] MEDS: Aspirin 81 MG CHEW 324 MG CH (10:07)
[2023-08-04 10:29] LABS: ALT 20 U/L (14-59); AST 16 U/L (15-37); Alkaline Phosphatase 90 U/L (46-116); Anion Gap 7.4 mmol/L (3-11); BUN 11 mg/dL (7-18); Bilirubin, Total 0.5 mg/dL (0.2-1.0); CO2 29.6 mmol/L (21.0-32.0); CREATININE 0.7 mg/dL (0.55-1.02); Calcium 9.3 mg/dL (8.5-10.1); Chloride 105 mmol/L (98-107); Estimated GFR 85.76 (mL/min/1.73m2); Glucose 87 mg/dL (74-106); Potassium 4.3 mmol/L (3.5-5.1); Sodium 142 mmol/L (136-145); TSH (W/Ref FT4) 6.38 uIU/mL (0.36-3.74); Total Protein 7.9 g/dL (6.4-8.2)
[2023-08-04 10:30] LABS: Troponin I < 50 ng/L (< or =60)
--- NOTE | 2023-08-04 10:30 | DI.CT_ITS ---
Exam(s) CT CHEST PE CTA EXAM: CT CHEST PE CTA CLINICAL HISTORY: Elevated Dimer, Left side chest pain. TECHNIQUE: Imaging Protocol: CT angiography of the chest was performed using pulmonary embolus starla col. Multi planar reconstructions were performed. CONTRAST MATERIAL: Intravenous: Omnipaque 350 Contrast volume: 100 cc COMPARISON: CT CT CHEST PE CTA from 05/27/2022 FINDINGS: CHEST: PULMONARY ARTERIES: There are no intraluminal filling defects to suggest acute pulmonary emboli. LUNGS: Hypoventilation bilaterally.. Results in mild increased markings both lung coleman. Some mild infiltrate noted in the posterior segment of the right upper lobe and adjacent superior segment righ t lower lobe. There are no pleural effusions. MEDIASTINUM: There is no hilar nor mediastinal adenopathy. Visualized thyroid unremarkable. CARDIAC: Heart size is upper normal. There is no pericardial effusion.Caliber of the thoracic aorta is within normal limits. There is no evidence of aortic dissection. There is no significant shift of the interventricular septum. PARTIALLY VISUALIZED UPPERMOST ABDOMEN: No obvious findings OSSEOUS: No significant osseous lesions.No fractures evident.. IMPRESSION: 1. No evidence of acute pulmonary emboli. No evidence of pulmonary infarction.No pleural effusions. No intrathoracic adenopathy 2. Low bilateral lung volumes with increased markings in lung coleman as above. RADIATION DOSE DELIVERED: 276.65mGy.cm Total DLP DATA REPOSITORY: All CT scans at this facility are submitted to the National Radiology Data Registry (NRDR) Dose Index Registry (DIR) with the [employer] (ACR). RADIATION OPTIMIZATION: All CT scans at this facility use at least one of these dose optimization te chniques: automated exposure control; mA and/or kV adjustment per patient size (includes targeted exa ms where dose is matched to clinical indication); or iterative reconstruction.
[2023-08-04 10:35] LABS: D-Dimer 2625 ng/mlFEU (<500)
--- NOTE | 2023-08-04 10:40 | DI.RAD_ITS ---
Exam(s) XR SHOULDER LT COMPLETE 2+V EXAM: XR SHOULDER LT COMPLETE 2+V CLINICAL HISTORY: Shoulder pain. TECHNIQUE: 2D digital imaging was performed. COMPARISON: CR XR SHOULDER RT COMPLETE 2+V from 02/02/2023 FINDINGS: Four views. No evidence of fracture or dislocation or abnormal soft tissue calcifications. Subacromial space is not diminished. Multiple small degenerative cysts are noted in the lateral half of the humeral head. There are minimal degenerative changes in the glenohumeral joint. Mild degenerative changes in the AC joint. Clavicle unremarkable. IMPRESSION: Mild findings as above. No fractures. No soft tissue calcifications evident. DATA REPOSITORY: RADIATION DOSE DELIVERED:
--- NOTE | 2023-08-04 10:41 | DI.RAD_ITS ---
Exam(s) XR CHEST 2V PA LATERAL EXAM: XR CHEST 2V PA LATERAL CLINICAL HISTORY: Chest pain. TECHNIQUE: 2D digital imaging was performed. COMPARISON: CR XR CHEST 2V PA LATERAL from 03/28/2022 FINDINGS: 2 views: Heart size is normal. The mediastinum is not widened. Lungs are clear. No infiltrates nor pleural effusions. IMPRESSION: No acute pulmonary findings. DATA REPOSITORY: RADIATION DOSE DELIVERED:
[2023-08-04 10:46] LABS: FREE T4 0.84 ng/dL (0.76-1.46)
[2023-08-04] MEDS: Omnipaque 350 MG/ML 500 ML BTL-Imaging package 100 ML IJ (11:17)
[2023-08-04] MEDS: Lidocaine 5% Patch 1 PATCH TP (12:16)
[2023-08-04] MEDS: MORPHine 10 MG/ML VIAL 2 MG IVP (12:19)
[2023-08-04] MEDS: Normal Saline 1,000 ML 125 ML IV (12:22)
[2023-08-04 13:02] LABS: Troponin I < 50 ng/L (< or =60)
[2023-08-05 12:44] LABS: Lyme Ab w Rflx to Lyme Confirm Negative (Negative)
[2023-08-07 17:38] LABS: Anaplasma phagocytophilum Negative (Negative); B. miyamotoi PCR Negative (Negative); Babesia divergens/MO-1 Negative (Negative); Babesia duncani Negative (Negative); Babesia microti Negative (Negative); Ehrlichia chaffeensis Negative (Negative); Ehrlichia ewingii/canis Negative (Negative); Ehrlichia muris eauclairensis Negative (Negative)
== END 2023-08-04 13:27 | disposition home or self-care (01) ==
PROVIDERS: Emergency Provider Registered Nurse Emergency; PCP Nurse Practitioner Family
DX: M25.512 Pain in left shoulder (principal); R21 Rash and other nonspecific skin eruption; I10 Essential (primary) hypertension; E78.5 Hyperlipidemia, unspecified; Z79.82 Long term (current) use of aspirin
CPT/HCPCS: 36415; 71275; 80053; 87798; 93005; 96374; 99285; 71046; 73030; 83735; 84439; 84443; 84484; 85025; 85379; 86618; 93010; 99284; J2270

== ENCOUNTER 2024-04-07 21:33 | Outpatient (REF) | payer MEDICARE, OTHER, BC, SELFPAY ==
[2024-04-07 20:57] LABS: HCT 46.3 % (36.0-46.0); HGB 15.2 g/dL (11.2-15.7); MCH 28.1 pg (27.0-33.0); MCHC 32.8 % (32.0-36.0); MCV 86 fL (80-95); MPV 9.6 fL (8.0-11.0); Platelet Count 265 10^3/uL (130-400); RBC 5.41 10^6/uL (3.93-5.22); RDW 13.2 % (11.7-14.6); RDW-SD 40.8 fL; WBC 5.83 10^3/uL (4.4-10.8)
[2024-04-07 21:21] LABS: ALT 21 U/L (14-59); AST 15 U/L (15-37); Albumin 3.8 g/dL (3.4-5.0); Alkaline Phosphatase 89 U/L (46-116); Anion Gap 6.5 mmol/L (3-11); BUN 13 mg/dL (7-18); Bilirubin, Total 0.25 mg/dL (0.2-1.0); CO2 32.5 mmol/L (21.0-32.0); CREATININE 0.8 mg/dL (0.55-1.02); Calcium 9.7 mg/dL (8.5-10.1); Chloride 107 mmol/L (98-107); Estimated GFR 73.06 (mL/min/1.73m2); Glucose 97 mg/dL (74-106); Potassium 4.6 mmol/L (3.5-5.1); Sodium 146 mmol/L (136-145); TSH (W/Ref FT4) 0.83 uIU/mL (0.36-3.74); Total Protein 6.9 g/dL (6.4-8.2)
== END 2024-04-07 21:34 | disposition home or self-care (01) ==
LOC: NCHCN 21:33
PROVIDERS: PCP Nurse Practitioner Family; Visit Provider Family Medicine
DX: I10 Essential (primary) hypertension (principal)
CPT/HCPCS: 80053; 85027; 84443

== ENCOUNTER 2024-11-03 17:32 | Emergency (ER) | payer MEDICARE, OTHER, BC, SELFPAY ==
[2024-11-03 17:34] VITALS: BP 171/84; PULSE 86; RESP 18; TEMP 36.8; O2SAT 98
--- NOTE | 2024-11-03 18:00 | RT.EKG_ITS ---
APPROVED REPORT Exam: Resting ECG Reason for Exam: weakness Patient Location: E HR:67 bpm ECG Measurements Heart Rate 67 AXIS OH 151 P 49 QRSd 89 QRS -10 QT 447 T 10 QTc 470 Conclusion Sinus rhythm...normal P axis, V-rate 60- 99 Low voltage, precordial leads...precordial leads <1.0mV I have reviewed and interpreted ECG and agree with software generated interpretation.
--- NOTE | 2024-11-03 18:00 | DI.CT_ITS ---
Exam(s) CT BRAIN NECK CTA EXAM: CT BRAIN NECK CTA CLINICAL HISTORY: STEVEN, neck pain. TECHNIQUE: Imaging Protocol: Axial CT angiography was performed with multi- slice acquisition and multi-planar and/or 3D reconstructions. CONTRAST MATERIAL: Intravenous: Omnipaque 350 contrast volume:70 mL COMPARISON: CT CT CHEST PE CTA from 05/27/[address] CHEST PE CTA from 08/04/2023 FINDINGS: CT Head W/O and W: Ventricles and Extra axial spaces: Normal in size and morphology for the patient's age. Hemorrhage: None. Cerebral parenchyma: There are areas of decreased attenuation in the white matter most suggestive of chronic microvascular ischemic disease. No acute mass effect is identified at this time. Midline shift: None. Brainstem/Cerebellum: Normal. Calvarium: Normal. Visualized Paranasal sinuses/Mastoids: Clear. Soft Tissues: Unremarkable. Enhancement: Unremarkable. CTA Neck W: Common Carotid: Right: No dissection, occlusion or significant stenosis. Left: No dissection, occlusion or significant stenosis. External Carotid: Right: No occlusion or significant stenosis. Left: No occlusion or significant stenosis. Internal Carotid: Right: No dissection, occlusion or significant stenosis. Left: No dissection, occlusion or significant stenosis. Vertebral Artery: There is calcification at the origins of both vertebral arteries, but no significant stenosis is seen. Right: No dissection, occlusion or significant stenosis. Left: No dissection, occlusion or significant stenosis. Lung Apices: There is residual scarring again seen in the left upper lobe. Bones: Within normal limits for the patient's age. Soft Tissues: Normal. Thyroid gland: Unremarkable. CTA Brain W: Internal Carotid Arteries: Mild atherosclerotic calcifications seen in the cavernous portions of the internal carotid arteries bilaterally. No aneurysm, occlusion or significant stenosis is present. Anterior Cerebral Arteries: Right: No aneurysm, occlusion or significant stenosis. Left: No aneurysm, occlusion or significant stenosis. Middle Cerebral Arteries: Right: No aneurysm, occlusion or significant stenosis. Left: No aneurysm, occlusion or significant stenosis. Posterior Cerebral Arteries: Right: No aneurysm, occlusion or significant stenosis. Left: No aneurysm, occlusion or significant stenosis. Vertebral Arteries: Right: No aneurysm, occlusion or significant stenosis. Left: No aneurysm, occlusion or significant stenosis. Basilar Artery: No aneurysm, occlusion or significant stenosis. IMPRESSION: 1. No large vessel occlusion or significant stenosis on the CT angiography of the head. 2. No acute intracranial process. 3. No occlusion or significant stenosis on the CT angiography of the neck. RADIATION DOSE DELIVERED: 1,976.17mGy.cm Total DLP DATA REPOSITORY: All CT scans at this facility are submitted to the National Radiology Data Registry (NRDR) Dose Index Registry (DIR) with the [employer] (ACR). RADIATION OPTIMIZATION: All CT scans at this facility use at least one of these dose optimization techniques: automated exposure control; mA and/or kV adjustment per patient size (includes targeted exams where dose is matched to clinical indication); or iterative reconstruction.
[2024-11-03] MEDS: ACETAMINOPHEN 500 MG/50 ML BAG 200 MG IVPB (18:14)
[2024-11-03] MEDS: Prochlorperazine 10 MG/2 ML VIAL IVP (18:16)
[2024-11-03] MEDS: Dexamethasone 10 MG/ML VIAL 5 MG IVP (18:16)
[2024-11-03] MEDS: Normal Saline 1,000 ML 1000 ML IV (18:16)
[2024-11-03 18:27] LABS: Abs Immature Grans 0.02 10^3/uL (0.0-0.06); HCT 43.2 % (36.0-46.0); HGB 14.6 g/dL (11.2-15.7); Immature Grans % 0.3 %; MCH 28.5 pg (27.0-33.0); MCHC 33.8 % (32.0-36.0); MCV 84 fL (80-95); MPV 9.1 fL (8.0-11.0); Platelet Count 227 10^3/uL (130-400); RBC 5.13 10^6/uL (3.93-5.22); RDW 12.6 % (11.7-14.6); RDW-SD 38.6 fL; WBC 6.04 10^3/uL (4.4-10.8)
[2024-11-03] MEDS: Normal Saline - Diluent 50 ML VIAL IJ (18:28)
[2024-11-03] MEDS: Normal Saline Flush 10 ML SYR IVP ×2 (18:28→18:35)
[2024-11-03] MEDS: Omnipaque 350 MG/ML 100 ML BTL 70 ML IJ (18:34)
[2024-11-03 18:44] LABS: ALT 19 U/L (14-59); AST 15 U/L (15-37); Albumin 3.8 g/dL (3.4-5.0); Alkaline Phosphatase 92 U/L (46-116); Anion Gap 9.0 mmol/L (3-11); BUN 18 mg/dL (7-18); Bilirubin, Total 0.4 mg/dL (0.2-1.0); CO2 30.0 mmol/L (21.0-32.0); Calcium 8.9 mg/dL (8.5-10.1); Chloride 104 mmol/L (98-107); Estimated GFR 72.61 (mL/min/1.73m2); Glucose 134 mg/dL (74-106); Potassium 4.1 mmol/L (3.5-5.1); Sodium 143 mmol/L (136-145); Total Protein 7.2 g/dL (6.4-8.2)
[2024-11-03 19:06] VITALS: BP 171/84; PULSE 86; RESP 18; TEMP 36.8; O2SAT 98
[2024-11-03] MEDS: Ketorolac 15 MG/ML VIAL 7.5 MG IVP (19:48)
[2024-11-03] MEDS: MAGNESIUM SULFATE 1 GM/100 ML BAG IV_INF (19:48)
--- NOTE | 2024-11-03 20:00 | W.ED.GENAD ---
Discharge Plan Disposition Patient Disposition: Home Condition: Stable Discharge Details Clinical Impression: Headache Primary Care Provider: Doretha Resendiz ED Provider: Monse Maya Home Meds and New Rx's Prescriptions: New prochlorperazine maleate [Compazine] 10 mg tablet 10 mg PO Q6H PRNQty: 10 0RF Continued Spiriva Respimat 2.5 mcg/actuation mist 2 inh inhalation BID acetaminophen [Tylenol Arthritis Pain] 650 mg tablet extended release 650 mg PO Q12H ramipril 5 mg capsule 5 mg PO DAILY levothyroxine 25 mcg Tablet 25 mcg PO DAILY cetirizine [Zyrtec] 10 mg Tablet 10 mg PO DAILY PRN albuterol sulfate [ProAir HFA] 90 mcg/actuation Hfa Aerosol Inhaler 2 puff INHALATION Q6H PRN coenzyme Q10 [CoQ-10] 30 mg Capsule 30 mg PO DAILY diazepam 5 mg Tablet 5 mg PO DAILY PRN (Reason: Anxiety) aspirin 325 mg Capsule 325 mg PO PRN diclofenac sodium 3 % gel 1 applic topical BID Qty: 100 0RF lidocaine 5 % adhesive patch,medicated 1 patch topical DAILY Qty: 15 0RF Rx Instructions: leave on most painful area for up to 12 hrs Discharge Instructions Instructions: Headache, Adult ED Additional Instructions: Take Compazine as needed for headache you may combine this with Tylenol 500 mg Please return should you develop worsening or return of headache, speech, sensation change or dizziness, or should any new concerns arise Your CT scans and blood work today were reassuring Your blood pressure is mildly elevated today but likely not the cause of your headache, please have this rechecked by your doctor this week for reassessment Referrals: Doretha Resendiz [Primary Care Provider, Medicine] Discharge Data Discharge Date/Time-TO BE ENTERED AT DEPARTURE: 11/03/24 20:51 HPI General Date/Time Provider Initiated Documentation: 11/03/24 17:42. HPI Narrative: This 82-year-old female with history of COPD hyperlipidemia hypertension hypothyroidism presents with report of headache started several days ago but has been more consistent pain throughout the day today. She describes it as being sharp pain at the top of her head mostly in the parietal region on the left side. She denies any vision change chest pain or shortness of breath she has had some intermittent left anterior neck discomfort denies any difficulty swallowing speech change. She denies any dizziness or nausea. Related Data Home Medications ?Medication ?Instructions ?Recorded ?Confirmed albuterol sulfate 90 mcg/actuation 2 puff inhalation Q6H PRN 02/14/19 11/03/24 aerosol inhaler (ProAir HFA) cetirizine 10 mg tablet (Zyrtec) 10 mg PO DAILY PRN 02/14/19 11/03/24 coenzyme Q10 30 mg capsule (CoQ-10) 30 mg PO DAILY 02/14/19 11/03/24 diazepam 5 mg tablet 5 mg PO DAILY PRN Anxiety 02/14/19 11/03/24 acetaminophen 650 mg 650 mg PO Q12H 08/26/19 11/03/24 tablet,extended release (Tylenol Arthritis Pain) ramipril 5 mg capsule 5 mg PO DAILY 12/09/19 11/03/24 levothyroxine 25 mcg tablet 25 mcg PO DAILY 04/20/20 11/03/24 aspirin 325 mg capsule 325 mg PO PRN 12/06/20 11/03/24 diclofenac sodium 3 % topical gel 1 applic topical BID #100 grams 12/06/20 11/03/24 tiotropium bromide 2.5 2 inh inhalation BID 12/25/20 11/03/24 mcg/actuation mist for inhalation (Spiriva Respimat) lidocaine 5 % topical patch 1 patch topical DAILY #15 ea 08/04/23 11/03/24 prochlorperazine maleate 10 mg 10 mg PO Q6H PRN #10 tabs 11/03/24 tablet (Compazine) Previous Rx's ?Medication ?Instructions ?Recorded diclofenac sodium 3 % topical gel 1 applic topical BID #100 grams 12/06/20 lidocaine 5 % topical patch 1 patch topical DAILY #15 ea 08/04/23 prochlorperazine maleate 10 mg 10 mg PO Q6H PRN #10 tabs 11/03/24 tablet (Compazine) Allergies Allergy/AdvReac Type Severity Reaction Status Date / Time Sulfa (Sulfonamide Allergy Intermediate HIVES,HEADA Verified 11/03/24 17:40 Antibiotics) LISA sulfamethoxazole (From Allergy Intermediate HIVES, Verified 11/03/24 17:40 Bactrim) HEADACHE trimethoprim (From Bactrim) Allergy Intermediate HIVES, Verified 11/03/24 17:40 HEADACHE lisinopril AdvReac Severe HEADACES Verified 11/03/24 17:40 General Stated Complaint: Headache VITOR: 3 Exam Narrative Exam Narrative: Alert and oriented 84-year-old female in no acute distress pupils equal round reactive to light and accommodation TMs clear, no maxillary sinus tenderness no meningismus no carotid bruit lungs clear to auscultation cardiac rate rhythm regular cranial nerves II through XII intact ambulatory with steady gait no rashes or lesions no tenderness over temporal artery Course Vital Signs Vital signs: Vital Signs Temperature 36.8 C 11/03/24 17:34 Pulse 86 11/03/24 17:34 Respiratory Rate 18 11/03/24 17:34 Blood Pressure 171/84 H 11/03/24 17:34 Pulse Oximetry 98 11/03/24 17:34 Temperature 36.8 C 11/03/24 19:06 Temperature Source Oral 11/03/24 17:34 Pulse 86 11/03/24 19:06 Respiratory Rate 18 11/03/24 19:06 Blood Pressure 171/84 H 11/03/24 19:06 Pulse Oximetry 98 11/03/24 19:06 Pain Level 10 11/03/24 19:06 Lab/Test Results Lab/Test Results: Laboratory Tests Range/Units 11/03/24 18:19 WBC (4.4-10.8) 10^3/uL 6.04 RBC (3.93-5.22) 10^6/uL 5.13 Hgb (11.2-15.7) g/dL 14.6 Hct (36.0-46.0) % 43.2 MCV (80-95) fL 84 MCH (27.0-33.0) pg 28.5 MCHC (32.0-36.0) % 33.8 RDW (11.7-14.6) % 12.6 Plt Count (130-400) 10^3/uL 227 MPV (8.0-11.0) fL 9.1 Immature Gran % % 0.3 Neutrophils % % 68.6 Lymphocytes % % 20.7 Monocytes % % 6.3 Eosinophils % % 3.1 Basophils % % 1.0 Nucleated RBC % (0.0-0.3) % 0.0 Absolute Neutrophils (1.2-6.7) 10^3/uL 4.14 Absolute Lymphocytes (1.2-3.4) 10^3/uL 1.25 Absolute Monocytes (0.1-0.8) 10^3/uL 0.38 Absolute Eosinophils (0.0-0.7) 10^3/uL 0.19 Absolute Basophils (0.0-0.2) 10^3/uL 0.06 Sodium (136-145) mmol/L 143 Potassium (3.5-5.1) mmol/L 4.1 Chloride (98-107) mmol/L 104 Carbon Dioxide (21.0-32.0) mmol/L 30.0 Anion Gap (3-11) mmol/L 9.0 BUN (7-18) mg/dL 18 Creatinine (0.55-1.02) mg/dL 0.8 Est GFR (CKD-EPI 2020) (mL/min/1.73m2) 72.61 Glucose (74-106) mg/dL 134 H Calcium (8.5-10.1) mg/dL 8.9 Total Bilirubin (0.2-1.0) mg/dL 0.4 AST (15-37) U/L 15 ALT (14-59) U/L 19 Alkaline Phosphatase (46-116) U/L 92 Total Protein (6.4-8.2) g/dL 7.2 Albumin (3.4-5.0) g/dL 3.8 Medical Decision Making Results: CTA head and neck per radiology interpretation of my review does not show acute pathology CBC and chemistry within normal limits and EKG is nonischemic per attending documentation of my review Assessment and plan: 84-year-old female presenting with past medical history of headaches but nothing like this before in terms of presentation. I did order blood work and CT. I think it is reassuring that her headache was gradual in onset and intermittent. I see no evidence of obvious bleed nor do I feel like patient needs a lumbar puncture at time of my assessment. I have very low suspicion that this is meningitis or subarachnoid hemorrhage clinically. - Patient was given magnesium, Decadron, Tylenol, Compazine, and fluids and reports significant improvement in pain - She was offered any additional analgesia as needed and she has declined she would like to be discharged home at this time as she feels significant improvement -She is encouraged to follow-up with primary care physician and return to this facility should she develop return of headache or worsening symptoms - I also considered hypertensive urgency however patient's blood pressure was 155/70 without any antihypertensives administered - Return precautions reviewed in detail and patient expressed understanding PFS All Active Problems (Updated 11/03/24 @ 20:31 by GUZMAN Goodrich) Headache (Acute) Osteoarthritis of carpometacarpal (CMC) joint of left thumb (Acute) Acute wrist pain (Acute) Non-healing surgical wound (Acute) S/P hernia repair (Acute) Postoperative hematoma (Acute) Diverticular disease of large intestine (Acute) History of open sigmoidectomy (Acute) for diverticular dx Hypothyroid (Chronic) Hypertension (Chronic) Hyperlipidemia (Acute) COPD (chronic obstructive pulmonary disease) (Chronic) pt. questions this Medical History Nonsustained ventricular tachycardia F/U with PCP regularly 12/07/19 Colonic polyp Abdominal pain Osteoarthritis of left hand Headache Cervicalgia Allergic rhinitis Insomnia Anxiety Depressive disorder Inguinal hernia hx of 3 hernia repairs @ [facility] Surgical History H/O ventral hernia repair (~01/30/20) Dr. Ruano History of colectomy (~07/12/10) [facility] History of hernia repair 1993- [facility] 10/28/2012 [facility] September 08, 2013 [facility] History of colonoscopy 2000 3 year recall 2002 5 year recall ?? tubular adenoma & hyperplastic polyps [facility] 12/10/2010 H/O detached retina repair @ [facility] H/O: hysterectomy Hx of appendectomy History of cholecystectomy Social History Smoking/Tobacco Use Status: Never Smoking risk assessment performed?: Yes Alcohol Intake: current Alcohol Intake frequency: holidays/special occasions only Drug use: Never Substance use type: does not use Housing: house Current gender identity: female Do you feel safe at home: Yes Do you feel safe in your relationship?: Yes
[2024-11-03 20:20] VITALS: BP 181/70; PULSE 74; RESP 15; O2SAT 96
[2024-11-03 20:51] VITALS: BP 155/77; PULSE 69; RESP 15; O2SAT 98
== END 2024-11-03 20:51 | disposition home or self-care (01) ==
LOC: ER 20:40
PROVIDERS: Emergency Provider Physician Assistant; PCP Nurse Practitioner Family
DX: R51.9 Headache, unspecified (principal); I10 Essential (primary) hypertension
CPT/HCPCS: 36415; 70496; 70498; 80053; 93005; 96365; 96366; 96367; 96375; 99285; 85025; 93010; 99284; J0131; J0780; J1100; J1885; J3475; J3490